=== PATIENT | female | born 1965 | race Caucasian/White ===

== ENCOUNTER → 2017-10-17 12:35 | Outpatient (CLI) | payer BC, SELFPAY ==
--- NOTE | 2017-10-17 12:35 | DT_ITS ---
This patient was seen during an EMR downtime October 16, 2017 - October 23, 2017. This patient may have a combination of paper and electronic documentation or all paper documentation. All documentation is viewable within the e-chart portion of [employer] for each patient visit.
--- NOTE | 2017-10-17 12:50 | BI_ITS ---
MAMMOGRAPHY - BILATERAL SCREENING REASON FOR EXAM: Female, 52 years old. Routine annual screening examination. PERTINENT HISTORY: NO FAM HX - NO PREV SURG'S TECHNIQUE: Digital bilateral breast marcos (3D mammographic acquisition) in the CC and MLO projections. 2-D mediolateral oblique (MLO) and craniocaudad (CC) views of both breasts were obtained. CAD: Full Field Digital Mammography with Computer Added Detection was performed. COMPARISON: 04/01/2013 and December 21, 2011 FINDINGS: Breast Composition: The breasts are heterogeneously dense, which may obscure small masses. There are no dominant masses or suspicious calcifications. No other significant abnormalities are identified. BI/SCREENING MAMM (CAD), BILAT IMPRESSION: Stable bilateral screening mammogram. Yearly follow-up mammogram recommended. (A) ASSESSMENT CATEGORY: BIRADS Category 2: Benign. A letter regarding these results will be sent to the patient by the facility within 30 days. Approximately 10% of breast cancers are not detected by mammography. A normal mammogram should not delay biopsy of a clinically suspicious abnormality. [id number] Electronically Signed: Frank Head MD at 12:58 EDT Tel , Service support ,
== END ==
PROVIDERS: Family Provider Family Medicine; PCP Family Medicine; Visit Provider Family Medicine
DX: Z12.31 Encounter for screening mammogram for malignant neoplasm of breast (principal)
CPT/HCPCS: 77063; 77067

== ENCOUNTER → 2018-10-29 12:29 | Outpatient (CLI) | payer BC, SELFPAY ==
--- NOTE | 2018-10-29 12:33 | BI_ITS ---
MAMMOGRAPHY - BILATERAL SCREENING REASON FOR EXAM: Female, 53 years old. Routine annual screening examination. PERTINENT HISTORY: Non-contributory. TECHNIQUE: Digital bilateral breast myrna (3D mammographic acquisition) in the CC and MLO projections. 2-D mediolateral oblique (MLO) and craniocaudad (CC) views of both breasts were obtained. CAD: Full Field Digital Mammography with Computer Added Detection was performed. COMPARISON: Comparison is made with prior study dated October 17, 2017 and April 01, 2013. FINDINGS: Breast Composition: The breasts are heterogeneously dense, which may obscure small masses. There are no dominant masses or suspicious calcifications. Stable benign-appearing bilateral axillary lymph nodes. No other significant abnormalities are identified. There has been no significant change since the prior study. BI/SCREEN MAMM (CAD) W/MYRNA BILAT IMPRESSION: Stable bilateral screening mammogram. Yearly follow-up mammogram recommended. (A) ASSESSMENT CATEGORY: BIRADS Category 2: Benign. A letter regarding these results will be sent to the patient by the facility within 30 days. Approximately 10% of breast cancers are not detected by mammography. A normal mammogram should not delay biopsy of a clinically suspicious abnormality. [id number] Electronically Signed: Trav Galindo, at 14:42 EDT , Service support ,
== END ==
PROVIDERS: Family Provider Family Medicine; PCP Family Medicine; Referring Provider Family Medicine; Visit Provider Family Medicine
DX: Z12.31 Encounter for screening mammogram for malignant neoplasm of breast (principal)
CPT/HCPCS: 77063; 77067

== ENCOUNTER → 2019-02-04 14:19 | Outpatient (CLI) | payer BC, SELFPAY ==
[2019-02-04 17:33] LABS: Absolute Lymphocyte Count 2.09 X10^3/uL (0.83-4.51); Absolute Neutrophil Count 4.5 X10^3/uL (2.0-7.7); Basophil# 0.09 X10^3/uL; Basophil% 1.1 % (0-1); Eosinophil# 0.41 X10^3/uL; Eosinophils% 5.2 % (0-5); Hematocrit 39.9 % (37-47); Hemoglobin 12.9 g/dL (12.0-15.0); Lymphocyte # 2.09 X10^3/ul (4.0); Lymphocyte % 26.4 % (19-41); Mean Corp Hgb Conc 32.3 g/dL (32-36); Mean Corpuscular Hgb 32.6 pg (27.0-32.0); Mean Corpuscular Volume 100.8 fL (81-99); Mean Platelet Vol. 10.3 fl (6.2-12.0); Monocyte# 0.79 X10^3/uL; NRBC Flagged by Analyzer 0 % (0-5); Neutrophil # 4.51 X10^3/uL (2.7-7.7); Neutrophil % 56.9 % (47-70); Platelet Count 315 K/mm3 (150-450); RBC Distribution Width CV 13.2 % (11.6-14.6); RBC Distribution Width SD 49.1 fl (35.1-43.9); Red Blood Count 3.96 M/mm3 (4.2-5.4); White Blood Count 7.9 K/mm3 (4.4-11.0)
[2019-02-04 17:55] LABS: Anion Gap 7 (5-15); BUN 14 mg/dL (7-18); BUN/Creat Ratio 18.5 RATIO (10-20); Calcium,Total 8.7 mg/dL (8.5-10.1); Chloride 106 mmol/L (98-107); Creatinine, Serum 0.76 mg/dL (0.55-1.02); EST Glomerular Filtration Rate 86 mL/min (>60); Est Glom Filt Rate - Afr Amer 104 mL/min (>60); Glucose 92 mg/dL (74-106); Potassium 3.9 mmol/L (3.5-5.1); Sodium Level 139 mmol/L (136-145); T4 Free Direct 0.72 ng/dL (0.76-1.46)
== END ==
PROVIDERS: Family Provider Family Medicine; PCP Family Medicine; Visit Provider Family Medicine
DX: F41.1 Generalized anxiety disorder (principal); R25.1 Tremor, unspecified
CPT/HCPCS: 36415; 80048; 84439; 84443; 85025

== ENCOUNTER → 2019-03-18 13:43 | Outpatient (CLI) | payer BC, SELFPAY ==
[2019-03-18 16:06] LABS: T4 Free Direct 0.99 ng/dL (0.76-1.46); Thyroid Stim Hormone (TSH) 2.23 uIU/mL (0.358-3.74)
== END ==
PROVIDERS: Family Provider Family Medicine; PCP Family Medicine; Visit Provider Family Medicine
DX: E03.9 Hypothyroidism, unspecified (principal)
CPT/HCPCS: 36415; 84439; 84443

== ENCOUNTER → 2019-06-28 14:03 | Outpatient (CLI) | payer BC, SELFPAY ==
--- NOTE | 2019-06-28 14:10 | RAD_ITS ---
STUDY: X-RAY CHEST REASON FOR EXAM: Female, 54 years old. worsening dyspnea TECHNIQUE: PA and lateral chest COMPARISON: 01/18/2006 FINDINGS: The lungs are clear and expanded. There is no demonstrated pleural abnormality. Normal size heart. Normal mediastinum and leandra. Normal visualized pulmonary arteries. Normal visualized aortic arch and descending thoracic aorta. Normal visualized thoracic spine. Normal visualized ribs, clavicles, and shoulders. There is no demonstrated abnormality of the visualized soft tissue structures of the upper abdomen. RAD/Chest PA and Lateral IMPRESSION: Normal x-ray examination of the chest. Electronically Signed: Misael Broderick, at 0:01 EST Tel , Service support ,
[2019-06-28 15:38] LABS: Absolute Lymphocyte Count 2.11 X10^3/uL (0.83-4.51); Absolute Neutrophil Count 5.5 X10^3/uL (2.0-7.7); Basophil# 0.07 X10^3/uL; Basophil% 0.8 % (0-1); Eosinophil# 0.35 X10^3/uL; Eosinophils% 3.9 % (0-5); Hematocrit 42.7 % (37-47); Lymphocyte # 2.11 X10^3/ul (4.0); Lymphocyte % 23.3 % (19-41); Mean Corp Hgb Conc 32.8 g/dL (32-36); Mean Corpuscular Hgb 32.1 pg (27.0-32.0); Mean Corpuscular Volume 97.9 fL (81-99); Mean Platelet Vol. 10.3 fl (6.2-12.0); Monocyte# 0.96 X10^3/uL; Monocyte% 10.6 % (0-10); NRBC Flagged by Analyzer 0 % (0-5); Neutrophil # 5.53 X10^3/uL (2.7-7.7); Neutrophil % 60.8 % (47-70); Platelet Count 285 K/mm3 (150-450); RBC Distribution Width CV 12.7 % (11.6-14.6); Red Blood Count 4.36 M/mm3 (4.2-5.4); White Blood Count 9.1 K/mm3 (4.4-11.0)
[2019-06-28 16:00] LABS: ALB/GLOB Ratio 1.1 RATIO (0.9-2.4); AST(SGOT) 16 U/L (15-37); Alanine Aminotransfer ALT/SGPT 40 U/L (13-56); Albumin, Serum 3.7 g/dL (3.2-5.0); Alkaline Phosphatase 79 U/L (45-117); Anion Gap 3 (5-15); BUN 14 mg/dL (7-18); BUN/Creat Ratio 18.9 RATIO (10-20); Chloride 106 mmol/L (98-107); Creatinine, Serum 0.74 mg/dL (0.55-1.02); EST Glomerular Filtration Rate 88 mL/min (>60); Est Glom Filt Rate - Afr Amer 106 mL/min (>60); Globulin 3.4 g/dL (2.2-4.2); Glucose 111 mg/dL (74-106); Potassium 3.6 mmol/L (3.5-5.1); Protein, Total 7.1 g/dL (6.4-8.2); Sodium Level 140 mmol/L (136-145); Thyroid Stim Hormone (TSH) 0.62 uIU/mL (0.358-3.74)
[2019-06-28 16:18] LABS: BNP,B-Type NATRIURETIC PEPTIDE 43.1 pg/mL (0-100)
== END ==
PROVIDERS: PCP Family Medicine; Referring Provider Family Medicine; Visit Provider Family Medicine
DX: R06.00 Dyspnea, unspecified (principal); R60.9 Edema, unspecified
CPT/HCPCS: 36415; 71046; 80053; 83880; 84443; 85025

== ENCOUNTER → 2019-07-08 12:54 | Outpatient (CLI) | payer BC, SELFPAY ==
--- NOTE | 2019-07-08 12:59 | ECHOCS_ITS ---
Reason For Study: Worsening Dyspnea Procedure This was a 2D Doppler, Color Flow transthoracic echocardiogram. Contrast injection was performed. Exam performed in department. Left Ventricle Normal LV size. The estimated ejection fraction is 60 %. No evidence for diastolic dysfunction. No regional wall motion abnormalities noted. Right Ventricle Normal RV size. Normal systolic function. Atria Normal left atrium. Normal right atrium. No doppler evidence for ASD. Mitral Valve There is no mitral valve stenosis. Mild (1+) mitral valve insufficiency. Tricuspid Valve There is no tricuspid stenosis. Trivial tricuspid valve insufficiency. Pulmonary artery systolic pressure is 30 mmHg. Aortic Valve Trisinus/trileaflet aortic valve. There is no aortic stenosis. No aortic valve insufficiency. Pulmonic Valve There is no pulmonic valvular stenosis. Trivial pulmonic valve insufficiency. Great Vessels Normal aortic root. Pericardium/Pleural No pericardial effusion. Medication Performed a rapid injection of agitated mix of 9 cc saline and 1cc air to assess for atrial septal defect. Diluted definity 3ml given slow IV push to enhance endocardial definition. MMode/2D Measurements & Calculations LVIDd: 4.0 cm IVSd: 1.2 cm Ao root diam: 2.8 cm LVIDs: 2.7 cm LVPWd: 1.1 cm RVDd: 2.6 cm FS: 32.1 % LAV(MOD-bp): 43.5 ml LA A4 area: 16.8 cm2 LA dimension(2D): 4.2 cm LAV(MOD-bp) Indexed: 22.2 ml/m2 LAV(MOD-sp2): 40.5 ml LAV(MOD-sp4): 45.7 ml RA A4 area: 8.0 cm2 Doppler Measurements & Calculations MV E max omar: 80.2 cm/sec Lat Peak E' Omar: 12.3 cm/sec Med Peak E' Omar: 6.7 cm/sec MV A max omar: 66.6 cm/sec E/E' lat: 6.5 E/E' med: 12.0 MV E/A: 1.2 Ao V2 max: 143.4 cm/sec LV V1 max: 103.5 cm/sec PA V2 max: 95.3 cm/sec Ao max P.2 mmHg LV V1 max P.3 mmHg Ao V2 mean: 101.0 cm/sec Ao mean P.5 mmHg Ao V2 VTI: 30.9 cm PI end-d omar: 79.9 cm/sec TR max omar: 241.6 cm/sec TR max P.4 mmHg Interpretation Summary The estimated ejection fraction is 60 %. No evidence for diastolic dysfunction. Mild (1+) mitral valve insufficiency. Trivial tricuspid valve insufficiency. Pulmonary artery systolic pressure is 30 mmHg. The study was technically difficult. Contrast injection was performed. Ordering Physician: Home Carter Referring Physician: Home Carter Performed By: Tiny Rodriguez, PRIMO, RVT
== END ==
PROVIDERS: PCP Family Medicine; Referring Provider Family Medicine; Visit Provider Family Medicine
DX: R06.00 Dyspnea, unspecified (principal); R60.9 Edema, unspecified
CPT/HCPCS: 93306; Q9957; A4216; C8929

== ENCOUNTER → 2019-12-20 06:54 | Outpatient (CLI) | payer BC, SELFPAY ==
[2019-12-20 07:19] LABS: Hematocrit 43.1 % (37-47); Hemoglobin 14.1 g/dL (12.0-15.0); Mean Corp Hgb Conc 32.7 g/dL (32-36); Mean Corpuscular Hgb 32.8 pg (27.0-32.0); Mean Corpuscular Volume 100.2 fL (81-99); Mean Platelet Vol. 9.7 fl (6.2-12.0); Platelet Count 335 K/mm3 (150-450); RBC Distribution Width CV 12.4 % (11.6-14.6); RBC Distribution Width SD 46.3 fl (35.1-43.9); White Blood Count 7.7 K/mm3 (4.4-11.0)
[2019-12-20 07:46] LABS: Anion Gap 4 (5-15); BUN 12 mg/dL (7-18); BUN/Creat Ratio 15.2 RATIO (10-20); Calcium,Total 8.7 mg/dL (8.5-10.1); Chloride 102 mmol/L (98-107); Creatinine, Serum 0.79 mg/dL (0.55-1.02); EST Glomerular Filtration Rate 81 mL/min (>60); Est Glom Filt Rate - Afr Amer 98 mL/min (>60); Glucose 110 mg/dL (74-106); Potassium 4.3 mmol/L (3.5-5.1); Sodium Level 136 mmol/L (136-145)
== END ==
PROVIDERS: PCP Family Medicine; Referring Provider Physician Assistant; Visit Provider Physician Assistant
DX: Z01.818 Encounter for other preprocedural examination (principal); Z01.810 Encounter for preprocedural cardiovascular examination
CPT/HCPCS: 36415; 80048; 85027

== ENCOUNTER → 2020-05-04 09:32 | Outpatient (CLI) | payer BC, SELFPAY ==
[2020-05-04 12:56] LABS: Vitamin B12 364 pg/mL (211-911)
[2020-05-04 13:09] LABS: Anion Gap 7 (5-15); BUN 9 mg/dL (7-18); BUN/Creat Ratio 13.5 RATIO (10-20); Calcium,Total 8.5 mg/dL (8.5-10.1); Chloride 102 mmol/L (98-107); Cholesterol 192 mg/dL (200); Creatinine, Serum 0.67 mg/dL (0.55-1.02); EST Glomerular Filtration Rate 98 mL/min (>60); Est Glom Filt Rate - Afr Amer 119 mL/min (>60); Glucose 101 mg/dL (74-106); High Density Lipoprotein 47 mg/dL; Potassium 4.1 mmol/L (3.5-5.1); Sodium Level 136 mmol/L (136-145); T4 Free Direct 1.11 ng/dL (0.76-1.46); Triglycerides 189 mg/dL; Very Low Density Lipoprotein 38 mg/dL (5-40)
[2020-05-04 16:21] LABS: Thyroid Stim Hormone (TSH) 2.58 uIU/mL (0.358-3.74)
== END ==
PROVIDERS: PCP Family Medicine; Visit Provider Family Medicine
DX: E03.9 Hypothyroidism, unspecified (principal); R73.01 Impaired fasting glucose; G25.81 Restless legs syndrome; G62.9 Polyneuropathy, unspecified
CPT/HCPCS: 36415; 80048; 80061; 82607; 84439; 84443

== ENCOUNTER → 2020-05-26 17:00 | Outpatient (CLI) | payer BC, SELFPAY ==
--- NOTE | 2020-05-26 16:41 | BI_ITS ---
MAMMOGRAPHY - BILATERAL SCREENING REASON FOR EXAM: Female, 55 years old. Routine annual screening examination. PERTINENT HISTORY: Non-contributory. TECHNIQUE: Digital bilateral breast myrna (3D mammographic acquisition) in the CC and MLO projections. 2-D mediolateral oblique (MLO) and craniocaudad (CC) views of both breasts were obtained. CAD: Full Field Digital Mammography with Computer Added Detection was performed. COMPARISON: Comparison is made with prior study dated 10/29/2018 and 10/17/2017. FINDINGS: Breast Composition: The breasts are heterogeneously dense, which may obscure small masses. There are no dominant masses or suspicious calcifications. Stable benign-appearing bilateral axillary lymph nodes. No other significant abnormalities are identified. There has been no significant change since the prior study. BI/SCREEN MAMM (CAD) W/MYRNA BILAT IMPRESSION: Stable bilateral screening mammogram. Yearly follow-up mammogram recommended. (A) ASSESSMENT CATEGORY: BIRADS Category 2: Benign. A letter regarding these results will be sent to the patient by the facility within 30 days. Approximately 10% of breast cancers are not detected by mammography. A normal mammogram should not delay biopsy of a clinically suspicious abnormality. [id number] Electronically Signed: Trav Galindo, at 8:40 EST , Service support ,
== END ==
PROVIDERS: PCP Family Medicine; Referring Provider Family Medicine; Visit Provider Family Medicine
DX: Z12.31 Encounter for screening mammogram for malignant neoplasm of breast (principal)
CPT/HCPCS: 77063; 77067

== ENCOUNTER → 2020-07-27 08:51 | Outpatient (CLI) | payer BC, SELFPAY ==
[2020-07-27 12:38] LABS: Absolute Neutrophil Count 4.4 X10^3/uL (2.0-7.7); Basophil# 0.06 X10^3/uL; Basophil% 0.8 % (0-1); Eosinophil# 0.18 X10^3/uL; Eosinophils% 2.5 % (0-5); Hematocrit 43.1 % (37-47); Hemoglobin 13.5 g/dL (12.0-15.0); Lymphocyte % 26.4 % (19-41); Mean Corp Hgb Conc 31.3 g/dL (32-36); Mean Corpuscular Hgb 31.8 pg (27.0-32.0); Mean Corpuscular Volume 101.4 fL (81-99); Mean Platelet Vol. 10.1 fl (6.2-12.0); Monocyte# 0.61 X10^3/uL; Monocyte% 8.5 % (0-10); NRBC Flagged by Analyzer 0 % (0-5); Platelet Count 367 K/mm3 (150-450); RBC Distribution Width CV 12.7 % (11.6-14.6); RBC Distribution Width SD 47.9 fl (35.1-43.9); Red Blood Count 4.25 M/mm3 (4.2-5.4); White Blood Count 7.2 K/mm3 (4.4-11.0)
[2020-07-27 13:06] LABS: ALB/GLOB Ratio 1.1 RATIO (0.9-2.4); AST(SGOT) 16 U/L (15-37); Alanine Aminotransfer ALT/SGPT 38 U/L (13-56); Albumin, Serum 3.7 g/dL (3.2-5.0); Alkaline Phosphatase 69 U/L (45-117); Anion Gap 7 (5-15); BUN 9 mg/dL (7-18); BUN/Creat Ratio 12.5 RATIO (10-20); Calcium,Total 8.6 mg/dL (8.5-10.1); Chloride 102 mmol/L (98-107); Creatinine, Serum 0.72 mg/dL (0.55-1.02); EST Glomerular Filtration Rate 90 mL/min (>60); Est Glom Filt Rate - Afr Amer 109 mL/min (>60); Globulin 3.3 g/dL (2.2-4.2); Glucose 100 mg/dL (74-106); Potassium 4.2 mmol/L (3.5-5.1); Sodium Level 135 mmol/L (136-145); T4 Free Direct 1.06 ng/dL (0.76-1.46); Thyroid Stim Hormone (TSH) 1.94 uIU/mL (0.358-3.74)
== END ==
PROVIDERS: PCP Family Medicine; Visit Provider Family Medicine
DX: E03.9 Hypothyroidism, unspecified (principal); J45.909 Unspecified asthma, uncomplicated; G25.0 Essential tremor
CPT/HCPCS: 36415; 80053; 84439; 84443; 85025

== ENCOUNTER → 2020-08-26 12:01 | Outpatient (CLI) | payer BC, SELFPAY ==
[2020-08-26 15:49] LABS: Thyroid Stim Hormone (TSH) 1.94 uIU/mL (0.358-3.74)
== END ==
PROVIDERS: PCP Family Medicine; Referring Provider Family Medicine; Visit Provider Family Medicine
DX: E03.9 Hypothyroidism, unspecified (principal)
CPT/HCPCS: 36415; 84443

== ENCOUNTER 2021-07-21 07:14 | Outpatient (CLI) | payer OTHER, SELFPAY ==
--- NOTE | 2021-07-21 07:20 | BI_ITS ---
MAMMOGRAPHY - BILATERAL SCREENING REASON FOR EXAM: Female, 56 years old. Routine annual screening examination. PERTINENT HISTORY: Non-contributory. TECHNIQUE: Digital bilateral breast myrna (3D mammographic acquisition) in the CC and MLO projections. 2-D mediolateral oblique (MLO) and craniocaudad (CC) views of both breasts were obtained. CAD: Full Field Digital Mammography with Computer Added Detection was performed. COMPARISON: Comparison is made with prior study dated 05/26/2020 and 10/29/2018. FINDINGS: Breast Composition: The breasts are heterogeneously dense, which may obscure small masses. There are no dominant masses or suspicious calcifications. Stable benign-appearing bilateral axillary lymph nodes. No other significant abnormalities are identified. There has been no significant change since the prior study. BI/SCRN MAMM (CAD)W/MYRNA BILAT IMPRESSION: Stable bilateral screening mammogram. Yearly follow-up mammogram recommended. (A) ASSESSMENT CATEGORY: BIRADS Category 2: Benign. A letter regarding these results will be sent to the patient by the facility within 30 days. Approximately 10% of breast cancers are not detected by mammography. A normal mammogram should not delay biopsy of a clinically suspicious abnormality. [id number] Electronically Signed: Trav Galindo MD at 8:38 EST ,
== END 2021-07-21 23:59 | disposition home or self-care (01) ==
LOC: OPBI 07:17
PROVIDERS: PCP Family Medicine; Visit Provider Family Medicine
DX: Z12.31 Encounter for screening mammogram for malignant neoplasm of breast (principal)
CPT/HCPCS: 77063; 77067

== ENCOUNTER → 2022-01-13 | Outpatient (CLI) | payer OTHER, SELFPAY ==
[2022-01-13 07:20] LABS: Hematocrit 45.3 % (37-47); Hemoglobin 15.3 g/dL (12.0-15.0); Mean Corp Hgb Conc 33.8 g/dL (32-36); Mean Corpuscular Hgb 34.1 pg (27.0-32.0); Mean Corpuscular Volume 100.9 fL (81-99); Mean Platelet Vol. 9.8 fl (6.2-12.0); Platelet Count 284 K/mm3 (150-450); RBC Distribution Width SD 48.3 fl (35.1-43.9); Red Blood Count 4.49 M/mm3 (4.2-5.4); White Blood Count 7.2 K/mm3 (4.4-11.0)
[2022-01-13 07:57] LABS: ALB/GLOB Ratio 1.2 RATIO (0.9-2.4); AST(SGOT) 17 U/L (15-37); Alanine Aminotransfer ALT/SGPT 35 U/L (13-56); Albumin, Serum 3.8 g/dL (3.2-5.0); Alkaline Phosphatase 81 U/L (45-117); Anion Gap 4 (5-15); BUN 13 mg/dL (7-18); BUN/Creat Ratio 16.9 RATIO (10-20); Calcium,Total 8.9 mg/dL (8.5-10.1); Chloride 104 mmol/L (98-107); Creatinine, Serum 0.77 mg/dL (0.55-1.02); EST Glomerular Filtration Rate 83 mL/min (>60); Est Glom Filt Rate - Afr Amer 100 mL/min (>60); Globulin 3.3 g/dL (2.2-4.2); Glucose 105 mg/dL (74-106); Potassium 4.2 mmol/L (3.5-5.1); Protein, Total 7.1 g/dL (6.4-8.2); Sodium Level 138 mmol/L (136-145)
== END | disposition home or self-care (01) ==
PROVIDERS: PCP Family Medicine; Referring Provider Physician Assistant; Visit Provider Physician Assistant
DX: G25.0 Essential tremor (principal)
CPT/HCPCS: 36415; 80053; 85027

== ENCOUNTER → 2022-03-23 | Outpatient (CLI) | payer OTHER, SELFPAY | END | disposition home or self-care (01) | LOC: LABSPEC 08:54 | PROVIDERS: PCP Family Medicine; Visit Provider Family Medicine | DX: N39.0 Urinary tract infection, site not specified (principal) | CPT/HCPCS: 87086; 87088; 87186 ==

== ENCOUNTER → 2022-06-16 | Outpatient (CLI) | payer OTHER, SELFPAY ==
[2022-06-16 08:22] LABS: Absolute Lymphocyte Count 1.81 X10^3/uL (0.83-4.51); Absolute Neutrophil Count 4.8 X10^3/uL (2.0-7.7); Basophil# 0.08 X10^3/uL; Eosinophil# 0.24 X10^3/uL; Eosinophils% 3.1 % (0-5); Hematocrit 45.8 % (37-47); Hemoglobin 14.8 g/dL (12.0-15.0); Lymphocyte # 1.81 X10^3/ul (0.83-4.51); Lymphocyte % 23.7 % (19-41); Mean Corp Hgb Conc 32.3 g/dL (32-36); Mean Corpuscular Hgb 33.1 pg (27.0-32.0); Mean Corpuscular Volume 102.5 fL (81-99); Mean Platelet Vol. 10.5 fl (6.2-12.0); Monocyte% 9.2 % (0-10); NRBC Flagged by Analyzer 0 % (0-5); Neutrophil # 4.78 X10^3/uL (2.7-7.7); Neutrophil % 62.7 % (47-70); Platelet Count 287 K/mm3 (150-450); RBC Distribution Width CV 12.6 % (11.6-14.6); RBC Distribution Width SD 47.9 fl (35.1-43.9); Red Blood Count 4.47 M/mm3 (4.2-5.4); White Blood Count 7.6 K/mm3 (4.4-11.0)
[2022-06-16 09:04] LABS: ALB/GLOB Ratio 1.2 RATIO (0.9-2.4); AST(SGOT) 16 U/L (15-37); Alanine Aminotransfer ALT/SGPT 43 U/L (13-56); Albumin, Serum 3.7 g/dL (3.2-5.0); Alkaline Phosphatase 84 U/L (45-117); Anion Gap 5 (5-15); BUN 10 mg/dL (7-18); BUN/Creat Ratio 16.4 RATIO (10-20); Calcium,Total 8.5 mg/dL (8.5-10.1); Chloride 105 mmol/L (98-107); Cholesterol 240 mg/dL (200); Creatinine, Serum 0.61 mg/dL (0.55-1.02); EST Glomerular Filtration Rate 108 mL/min (>60); Est Glom Filt Rate - Afr Amer 131 mL/min (>60); Globulin 3.2 g/dL (2.2-4.2); Glucose 106 mg/dL (74-106); High Density Lipoprotein 60 mg/dL; Potassium 4.1 mmol/L (3.5-5.1); Protein, Total 6.9 g/dL (6.4-8.2); Sodium Level 139 mmol/L (136-145); Thyroid Stim Hormone (TSH) 1.99 uIU/mL (0.358-3.74); Triglycerides 137 mg/dL; Very Low Density Lipoprotein 27 mg/dL (5-40)
[2022-06-16 10:26] LABS: Hemoglobin A1c 5.3 % (3.8-5.6)
== END | disposition home or self-care (01) ==
LOC: LAB 07:09
PROVIDERS: PCP Family Medicine; Referring Provider Family Medicine; Visit Provider Family Medicine
DX: E03.9 Hypothyroidism, unspecified (principal); E66.9 Obesity, unspecified; R73.01 Impaired fasting glucose; G25.0 Essential tremor
CPT/HCPCS: 36415; 80053; 80061; 83036; 84443; 85025

== ENCOUNTER → 2022-07-22 | Outpatient (CLI) | payer OTHER, SELFPAY ==
--- NOTE | 2022-07-22 07:08 | BI_ITS ---
MAMMOGRAPHY - BILATERAL SCREENING REASON FOR EXAM: Female, 57 years old. Routine annual screening examination. PERTINENT HISTORY: Non-contributory. TECHNIQUE: Digital bilateral breast myrna (3D mammographic acquisition) in the CC and MLO projections. 2-D mediolateral oblique (MLO) and craniocaudad (CC) views of both breasts were obtained. CAD: Full Field Digital Mammography with Computer Added Detection was performed. COMPARISON: Comparison is made with prior study July 21, 2021 and May 26, 2020. FINDINGS: Breast Composition: The breasts are heterogeneously dense, which may obscure small masses. There are no dominant masses or suspicious calcifications. Stable benign-appearing bilateral axillary lymph nodes. No other significant abnormalities are identified. There has been no significant change since the prior study. BI/SCRN MAMM (CAD)W/MYRNA BILAT IMPRESSION: Stable bilateral screening mammogram. Yearly follow-up mammogram recommended. (A) ASSESSMENT CATEGORY: BIRADS Category 2: Benign. A letter regarding these results will be sent to the patient by the facility within 30 days. Approximately 10% of breast cancers are not detected by mammography. A normal mammogram should not delay biopsy of a clinically suspicious abnormality. [id number] Electronically Signed: Trav Galindo MD at 8:24 EST ,
--- NOTE | 2022-07-22 07:29 | CT_ITS ---
STUDY: LOW DOSE CT LUNG CANCER SCREENING REASON FOR EXAM: Female, 57 years old. LUNG CANCER SCREEN. 1PPD X 40 YEARS . COPD AND ASTHMA RADIATION DOSAGE (If Supplied By Facility): CTDIvol = ( 4.02 ) mGy, DLP = ( 141.45 ) mGycm TECHNIQUE: No contrast was administered. Low dose technique was utilized (average mAS-38 and kVp 120). 1.25 mm axial source images with a slice interval of 1.25-mm were reconstructed in lung windows. 2.5 mm axial source images with a slice interval of 2.5-mm were reconstructed in lung windows. 5.0 mm axial source images with a slice interval of 5.0-mm were reconstructed in soft tissue windows. COMPARISON: None. NODULES: No suspicious findings are seen. Emphysema: No significant emphysema. Endobronchial lesion: Unremarkable Aorta: Unremarkable CORONARY ARTERIES: Coronary artery calcification is not seen. Heart: Unremarkable Pulmonary artery: Unremarkable Mediastinal nodes: Small mediastinal lymph nodes. Other chest and abdominal findings: CT/Low Dose CT Lung Screening IMPRESSION: Lung-RADS category 2 - Continue annual screening with LDCT in 12 months. IMPORTANT NOTES FOR USE: ACR Lung-RADS Version 1.1 Assessment Categories Release Date: 2018 Category: Coded 0-4 bases on nodule(s) with highest degree of suspicion. Negative screen is defined as categories 1 and 2; a positive screen is defined as categories 3 and 4. Category 3 and 4A nodules that are unchanged on interval CT should be coded as category 2, and individuals returned to screening in 12 months. Category 4X: Category 3 or 4 nodules with additional imaging findings that increase the suspicion of lung cancer, such as spiculation, GGN that doubles in size in 1 year, enlarged lymph notes, etc. Category Modifiers: S (significant finding unrelated to lung cancer) Electronically Signed: Trav Galindo MD at 14:23 EST ,
== END | disposition home or self-care (01) ==
LOC: OPBI 07:06
PROVIDERS: PCP Family Medicine; Referring Provider Family Medicine; Visit Provider Family Medicine
DX: Z12.31 Encounter for screening mammogram for malignant neoplasm of breast (principal); F17.200 Nicotine dependence, unspecified, uncomplicated
CPT/HCPCS: 71271; 77063; 77067

== ENCOUNTER 2022-12-08 08:02 | Emergency (ER) | payer OTHER, SELFPAY ==
[2022-12-08 08:06] VITALS: BP 156/76; PULSE 71; RESP 17; TEMP 35.2; O2SAT 99; BMI 37.7
--- NOTE | 2022-12-08 08:25 | EKG12_ITS ---
Test Reason : Blood Pressure : / mmHG Vent. Rate : 076 BPM Atrial Rate : 076 BPM P-R Int : 164 ms QRS Dur : 074 ms QT Int : 374 ms P-R-T Axes : 059 000 036 degrees QTc Int : 420 ms Normal sinus rhythm Normal ECG Confirmed by ZEYNEP BURGESS, RAGHAVENDRA ([id number]), editor city JELANI HERNANDES ([id number]) on 12/09/2022 9:14:31 AM Referred By: SHAVON Confirmed By:RAGHAVENDRA ADHIKARI MD
--- NOTE | 2022-12-08 08:27 | ED.VIS.CHEST ---
HPI History of Present Illness Chief Complaint: Chest Pain Informant: patient Narrative Narrative: Patient is a 57-year-old female with history of hypothyroid, restless leg syndrome, essential tremor, asthma, anxiety and low blood pressure presenting with chest pain. Patient states that she woke up at 4 AM and felt an electrical shocking sensation in the chest. She points to her left anterior chest wall as the area. She notes it did not radiate. It lasted for most 5 seconds. She states it was quite painful. She did go back to sleep and when she woke up again she had a milder discomfort in her left chest. She got a bed around 545 and states it was happening again. She states the episode only last for a second or 2 at a time. She was get ready for work and going into work she knows that she is also nauseous which is unusual for her and has some discomfort under her left armpit. She spoke to a colleague who recommend she come to the ER for further evaluation. Patient denies any significant swelling of her legs, history of DVT or PE. [place] any recent travel. Denies any shortness of breath. Nothing seems to make it worse or better. Currently does not have any symptoms. She denies any known history of any heart problems. States her sister gets episodes of chest pain has been told she has plaque but patient does not report any other cardiac history in the family. [facility] Home Medications ketoconazole 2 % topical cream applic topical 12/08/22 [History Last Taken Unknown] levothyroxine 112 mcg tablet mcg 12/08/22 [History Last Taken Unknown] propranolol 160 mg capsule,24 hr,extended release mg PO 12/08/22 [History Last Taken Unknown] temazepam 15 mg capsule mg 12/08/22 [History Last Taken Unknown] Allergy/AdvReac Type Severity Reaction Status Date / Time Penicillins Allergy Itching Verified 12/08/22 08:05 psyllium [From Metamucil] Allergy swelling Verified 12/08/22 08:05 acetaminophen [From Midrin] AdvReac Mild headache Verified 12/08/22 08:05 dichloralphenazone AdvReac Mild headache Verified 12/08/22 08:05 [From Midrin] isometheptene [From Midrin] AdvReac Mild headache Verified 12/08/22 08:05 metronidazole [From Flagyl] AdvReac Vomiting Verified 12/08/22 08:05 arithromicin AdvReac Nausea Uncoded 12/08/22 08:05 Social History Smoking Status: Current every day smoker tobacco type: cigarettes ROS ROS ED Constitutional Constitutional ED: Denies chills or fever(s) Cardiovascular Cardiovascular: Reports as per HPI and chest pain; Denies palpitations or racing heartbeat Respiratory/Chest Respiratory/Chest: Denies cough, dyspnea or dyspnea on exertion Gastrointestinal Gastrointestinal: Reports nausea; Denies abdominal pain or vomiting Genitourinary Genitourinary ED: Denies dysuria, hematuria or urinary frequency Musculoskeletal Musculoskeletal: Denies arthralgias, back pain, myalgias or neck pain Integumentary Denies rash Neurologic Neurologic: Denies headache(s), paresthesias or weakness Psychiatric Psychiatric: Denies anxiety EXAM Physical Exam Const Vital Signs: 12/08/22 08:06 12/08/22 08:09 12/08/22 08:25 Temperature 95.4 F L Temperature Source Temporal Pulse Rate 71 Respiratory Rate 17 Respiratory Effort Normal Non-Labored Blood Pressure 156/76 H Blood Pressure Mean 102 Pulse Ox 99 Oxygen Delivery Method Room Air Room Air 12/08/22 09:02 12/08/22 10:02 12/08/22 11:48 Temperature Temperature Source Pulse Rate 62 82 Respiratory Rate 14 14 Respiratory Effort Blood Pressure 122/69 H 125/75 H Blood Pressure Mean 86 Pulse Ox 95 99 Oxygen Delivery Method Room Air Positive well nourished and well developed General Appearance ED: well developed and NAD HEENT Reports moist mucous membranes normocephalic and atraumatic Eyes PERRL Neck supple and no JVD Chest Wall inspection of chest normal and palpation of chest normal Resp normal respiratory effort and clear to auscultation bilaterally Cardio regular rate, regular rhythm and no murmurs Peripheral Pulses: pulses 2+ throughout GI normal to inspection, nondistended, normoactive bowel sounds Extremity normal to inspection General Extremety ED: Negative for edema or pulses abnormal General Extremity: Negative for edema or pulses abnormal Neuro oriented x3 Sensorium / Orientation: awake Motor Exam: Negative for general weakness Psych mental status grossly normal Skin no rashes or lesions noted and no wounds Heart Score History: Slightly/Non-Suspicious ECG: Normal Age: >45 - <65 years Risk Factors: 1 or 2 Risk Factors Troponin: </= Normal Limit Score: 2 MDM MDM MDM Narrative Medical decision making narrative: Patient is evaluated for chest pain. Chest pain sounds atypical for ACS as it is an intermittent electric like sensation however patient is mildly hypertensive, greater than 50 and has a BMI of 37 so we will obtain cardiac work-up. I have a very low suspicion for pulmonary emboli based on the HPI. Patient has a largely negative cardiac work-up. High since he troponin negative x2. EKG is nonischemic. CBC and CMP are largely normal. No significant Sena abnormality. The exact cause of this electrical station of her chest is not clear. It could be muscle skeletal in nature she could have a some type of nerve impingement in her thoracic spine. Counseled that at this time the exact cause of symptoms not clear and she should be cleared to follow-up with her primary care doctor. I would recommend further outpatient cardiac testing. Patient agreeable with plan of care. Given return precautions. Lab Data Attestation: I reviewed the patient's lab results. Labs: Laboratory Results - last 24 hr 12/08/22 12/08/22 08:05 10:37 WBC 8.3 RBC 4.63 Hgb 15.4 H Hct 45.8 MCV 98.9 MCH 33.3 H MCHC 33.6 RDW Std Deviation 45.7 H RDW Coeff of Alayna 12.5 Plt Count 284 MPV 10.4 Immature Gran % (Auto) 0.400 Neut % (Auto) 60.1 Lymph % (Auto) 26.5 Toole % (Auto) 9.8 Eos % (Auto) 2.4 Baso % (Auto) 0.8 Absolute Neuts (auto) 5.0 Absolute Lymphs (auto) 2.20 Nucleated RBC % 0 Sodium 138 Potassium 4.1 Chloride 103 Carbon Dioxide 30.0 Anion Gap 5 BUN 14 Creatinine 0.72 Estim Creat Clear Calc 69.82 Est GFR (MDRD) Af Amer 107 Est GFR (MDRD) Non-Af 89 BUN/Creatinine Ratio 19.3 Glucose 112 H Calcium 9.1 Magnesium 2.4 Troponin I High Sens < 3 L < 3 L Radiography Chest X-Ray - ED: 2 View Diagnostic Testing: Clinical Impression(s) from Imaging Studies Chest X-Ray 12/08/22 08:40 IMPRESSION: Normal x-ray examination of the chest. Electronically Signed: Trav Galindo MD at 9:07 EDT , Rhythm Strip Rhythm Strip: Sinus Rhythm Rate: 76 Ectopy: None EKG Initial EKG: Attestation: I personally reviewed and interpreted this EKG as follows: Interpretation: Sinus Rhythm Comments: Normal sinus rhythm rate of 76 bpm Normal axis Normal intervals Normal ST segments Prior EKG tracings: not available for review Prior: No Prior Discharge Plan Triage Chief Complaint: Chest Pain ED Provider: Angelica Trivedi Dx/Rx/DC Orders Clinical Impression: Atypical chest pain Instructions: ED Chest Pain, Uncertain Cause Prescriptions: No Action propranolol 160 mg capsule,extended release 24 hr PO temazepam 15 mg capsule ketoconazole 2 % cream TOPICAL Patient Comments: APPLY TO AFFECTED AREAS OF TRUNK AND GROIN TWICE DAILY NEEDED levothyroxine 112 mcg tablet Stand Alone Forms: ED Work / School Excuse Primary Care Provider: Taryn Kim Referrals: Taryn Kim MD [Primary Care Provider] - Activity Restrictions/Additional Instructions: The exact cause of the sensation in her chest is not clear however at this time there does not appear to be any acute cardiac process going on. I feel that you are safe to follow-up outpatient with your primary care doctor. Please return to the ER if you have progression or worsening of your symptoms. Disposition Disposition: Home, Self Care Discharge Date/Time: 12/08/22 11:49
[2022-12-08] MEDS: Aspirin 81 MG TAB.CHEW 324 MG PO (08:33)
--- NOTE | 2022-12-08 08:40 | RAD_ITS ---
STUDY: X-RAY CHEST REASON FOR EXAM: Female, 57 years old. Chest pain TECHNIQUE: PA and lateral views of the chest. COMPARISON: Comparison is made with prior study June 28, 2019. FINDINGS: EKG electrodes are seen. The lungs are clear and expanded. Scattered calcified granulomas. There is no demonstrated pleural abnormality. Normal size heart. Normal mediastinum and leandra. Normal visualized pulmonary arteries. Normal visualized aortic arch and descending thoracic aorta. Normal visualized thoracic spine. Normal visualized ribs, clavicles, and shoulders. There is no demonstrated abnormality of the visualized soft tissue structures of the upper abdomen. RAD/Chest PA and Lateral IMPRESSION: Normal x-ray examination of the chest. Electronically Signed: Trav Galindo MD at 9:07 EDT ,
[2022-12-08 08:43] LABS: Basophil# 0.07 X10^3/uL; Basophil% 0.8 % (0-1); Eosinophils% 2.4 % (0-5); Hematocrit 45.8 % (37-47); Hemoglobin 15.4 g/dL (12.0-15.0); Lymphocyte % 26.5 % (19-41); Mean Corp Hgb Conc 33.6 g/dL (32-36); Mean Corpuscular Hgb 33.3 pg (27.0-32.0); Mean Corpuscular Volume 98.9 fL (81-99); Mean Platelet Vol. 10.4 fl (6.2-12.0); Monocyte# 0.81 X10^3/uL; Monocyte% 9.8 % (0-10); NRBC Flagged by Analyzer 0 % (0-5); Neutrophil # 4.99 X10^3/uL (2.7-7.7); Neutrophil % 60.1 % (47-70); Platelet Count 284 K/mm3 (150-450); RBC Distribution Width CV 12.5 % (11.6-14.6); RBC Distribution Width SD 45.7 fl (35.1-43.9); Red Blood Count 4.63 M/mm3 (4.2-5.4); White Blood Count 8.3 K/mm3 (4.4-11.0)
[2022-12-08 08:54] LABS: Anion Gap 5 (5-15); BUN 14 mg/dL (7-18); BUN/Creat Ratio 19.3 RATIO (10-20); Calcium,Total 9.1 mg/dL (8.5-10.1); Chloride 103 mmol/L (98-107); Creatinine, Serum 0.72 mg/dL (0.55-1.02); EST Glomerular Filtration Rate 89 mL/min (>60); Est Glom Filt Rate - Afr Amer 107 mL/min (>60); Estimated Creatinine Clearance 69.82 ml/min; Glucose 112 mg/dL (74-106); Magnesium 2.4 mg/dL (1.6-2.6); Potassium 4.1 mmol/L (3.5-5.1); Sodium Level 138 mmol/L (136-145); Troponin-I HS (w/2H Reflex) < 3 pg/mL (3.0-54.0)
[2022-12-08 09:02] VITALS: RESP 14
[2022-12-08 10:02] VITALS: BP 122/69; PULSE 62; RESP 14; O2SAT 95
[2022-12-08 10:30] LABS: Reflex Troponin-HS? (from REC) Y
[2022-12-08 11:18] LABS: Troponin-I HS < 3 pg/mL (3.0-54.0)
[2022-12-08 11:48] VITALS: BP 125/75; PULSE 82; O2SAT 99
== END 2022-12-08 11:49 | disposition home or self-care (01) ==
PROVIDERS: Emergency Provider Emergency Medicine; PCP Family Medicine; Visit Provider Emergency Medicine
DX: R07.89 Other chest pain (principal); E03.9 Hypothyroidism, unspecified; G25.81 Restless legs syndrome; J45.909 Unspecified asthma, uncomplicated; F41.9 Anxiety disorder, unspecified; F17.210 Nicotine dependence, cigarettes, uncomplicated; Z79.890 Hormone replacement therapy; Z79.899 Other long term (current) drug therapy
CPT/HCPCS: 71046; 80048; 83735; 84484; 85025; 93005; 99285; A4216

== ENCOUNTER 2023-06-08 13:38 | Emergency (ER) | payer OTHER, SELFPAY ==
[2023-06-08] VITALS (7 sets, daily range): BP systolic 118–144; BP diastolic 69–86; PULSE 69–86; RESP 13–18; TEMP 36.4; O2SAT 94–98; BMI 38.7
[2023-06-08] MEDS: Ipratropium/Albuterol Sulfate 3 ML AMPUL.NEB INHALATION (14:21)
--- NOTE | 2023-06-08 14:30 | RAD_ITS ---
STUDY: X-RAY CHEST REASON FOR EXAM: Female, 58 years old. Sob TECHNIQUE: Single AP portable view of the chest. COMPARISON: Comparison is made with prior study dated December 08, 2022. FINDINGS: EKG electrodes are seen. The lungs are clear and expanded. There is no demonstrated pleural abnormality. Normal size heart. Normal mediastinum and leandra. Normal visualized pulmonary arteries. Normal visualized aortic arch and descending thoracic aorta. Normal visualized thoracic spine. Normal visualized ribs, clavicles, and shoulders. There is no demonstrated abnormality of the visualized soft tissue structures of the upper abdomen. RAD/Chest 1 View (Portable) IMPRESSION: Normal x-ray examination of the chest. Electronically Signed: Trav Galindo MD at 14:48 EST ,
[2023-06-08 14:36] LABS: Absolute Lymphocyte Count 1.04 X10^3/uL (0.83-4.51); Basophil# 0.04 X10^3/uL; Basophil% 0.4 % (0-1); Eosinophil# 0.48 X10^3/uL; Eosinophils% 5.4 % (0-5); Hematocrit 43.9 % (37-47); Hemoglobin 14.6 g/dL (12.0-15.0); Lymphocyte # 1.04 X10^3/ul (0.83-4.51); Lymphocyte % 11.7 % (19-41); Mean Corp Hgb Conc 33.3 g/dL (32-36); Mean Corpuscular Hgb 32.7 pg (27.0-32.0); Mean Corpuscular Volume 98.4 fL (81-99); Mean Platelet Vol. 9.9 fl (6.2-12.0); Monocyte# 0.29 X10^3/uL; Monocyte% 3.3 % (0-10); NRBC Flagged by Analyzer 0 % (0-5); Neutrophil # 6.98 X10^3/uL (2.7-7.7); Neutrophil % 78.5 % (47-70); Platelet Count 290 K/mm3 (150-450); RBC Distribution Width CV 12.6 % (11.6-14.6); RBC Distribution Width SD 45.6 fl (35.1-43.9); Red Blood Count 4.46 M/mm3 (4.2-5.4); White Blood Count 8.9 K/mm3 (4.4-11.0)
--- NOTE | 2023-06-08 14:40 | EDS_ITS ---
HPI History of Present Illness Chief Complaint: Asthma Informant: patient Onset/Context/Timing Onset: Days Narrative Narrative: Patient present secondary to an asthma attack. She states that she has been sick off and on since . The week after she was diagnosed with COVID. She was seen by nurse practitioner at her PCPs office yesterday who prescribed her prednisone. She states she was told at the time that her lungs sounded clear. 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 She used 2 puffs of her albuterol inhaler this morning, 1 puff around 11 AM, and then 1 puff around 1:30 when she had an asthma attack. Patient does report some slight chest heaviness. She has not had recent fever or chills. [facility] Medical History (Updated 06/08/23 @ 15:[address] Francisca Yanez MD) Asthma Hypothyroidism Home Medications ketoconazole 2 % topical cream applic topical 12/08/22 [History Last Taken Unknown] levothyroxine 112 mcg tablet mcg 12/08/22 [History Last Taken Unknown] propranolol 160 mg capsule,24 hr,extended release mg PO 12/08/22 [History Last Taken Unknown] temazepam 15 mg capsule mg 12/08/22 [History Last Taken Unknown] Allergy/AdvReac Type Severity Reaction Status Date / Time azithromycin Allergy Mild Nausea Verified 06/08/23 13:46 Penicillins Allergy Itching Verified 06/08/23 13:46 psyllium [From Metamucil] Allergy swelling Verified 06/08/23 13:46 acetaminophen [From Midrin] AdvReac Mild headache Verified 06/08/23 13:46 dichloralphenazone AdvReac Mild headache Verified 06/08/23 13:46 [From Midrin] isometheptene [From Midrin] AdvReac Mild headache Verified 06/08/23 13:46 metronidazole [From Flagyl] AdvReac Vomiting Verified 06/08/23 13:46 Social History Smoking Status: Current every day smoker tobacco type: cigarettes ROS ROS ED Constitutional Constitutional ED: Denies chills or fever(s) Eyes Eyes: Denies discharge from eye(s) ENT ENT ED: Denies discharge from eye(s), rhinorrhea or sore throat Cardiovascular Cardiovascular: Reports chest pain; Denies palpitations Respiratory/Chest Respiratory/Chest: Reports dyspnea; Denies cough Gastrointestinal Gastrointestinal: Denies abdominal pain, nausea or vomiting Genitourinary Genitourinary ED: Denies dysuria Musculoskeletal Musculoskeletal: Denies back pain or extremity pain Integumentary Denies Abrasions or rash Neurologic Neurologic: Denies headache(s) or weakness Psychiatric Psychiatric: Denies anxiety or depression Allergic/Immunologic Allergic/Immunologic ED: Denies lip swelling or urticaria EXAM Physical Exam Const Vital Signs: 06/08/23 13:42 06/08/23 13:46 06/08/23 13:53 Temperature 97.5 F L Temperature Source Temporal Pulse Rate 86 84 Respiratory Rate 17 15 Respiratory Effort Short of Breath Respiratory Pattern Blood Pressure 144/86 H 135/76 H Blood Pressure Mean 105 95 Pulse Ox 96 97 Oxygen Delivery Method Room Air Room Air Room Air 06/08/23 14:24 06/08/23 14:59 06/08/23 15:00 Temperature Temperature Source Pulse Rate 75 69 72 Respiratory Rate 18 13 14 Respiratory Effort Respiratory Pattern Normal Blood Pressure 122/71 H 124/73 H Blood Pressure Mean 88 90 Pulse Ox 95 94 Oxygen Delivery Method Room Air Room Air Positive well nourished and well developed General Appearance ED: well developed HEENT Reports moist mucous membranes Eyes EOMs intact bilaterally Resp Resp Narrative: Slightly diminished air movement bilaterally. No wheezing appreciated at this time. Cardio regular rate and regular rhythm GI non-tender Palpation: soft Extremity normal to inspection Neuro oriented x3 and no sensory deficits noted Motor Exam: strength 5/5 throughout Psych mental status grossly normal Skin no wounds MDM MDM MDM Narrative Medical decision making narrative: Patient given DuoNeb treatment here. Patient placed on laboratory monitor. EKG obtained to evaluate for cardiac arrhythmia/ischemia. Chest x-ray obtained to evaluate for acute lung pathology, cardiac size, or mediastinal abnormality. Labwork obtained to evaluate for leukocytosis, anemia, and electrolyte derangement. History & Record Review Discussion w/independent historian: Patient Lab Data Attestation: I reviewed the patient's lab results. Labs: Laboratory Results - last 24 hr 06/08/23 14:30 WBC 8.9 RBC 4.46 Hgb 14.6 Hct 43.9 MCV 98.4 MCH 32.7 H MCHC 33.3 RDW Std Deviation 45.6 H RDW Coeff of Alayna 12.6 Plt Count 290 MPV 9.9 Immature Gran % (Auto) 0.700 Neut % (Auto) 78.5 H Lymph % (Auto) 11.7 L [place] % (Auto) 3.3 Eos % (Auto) 5.4 H Baso % (Auto) 0.4 Absolute Neuts (auto) 7.0 Absolute Lymphs (auto) 1.04 Nucleated RBC % 0 D-Dimer Quant (PE/DVT) < 0.27 L Sodium 138 Potassium 3.7 Chloride 106 Carbon Dioxide 25.0 Anion Gap 7 BUN 9 Creatinine 0.87 Estim Creat Clear Calc 77.99 Est GFR (MDRD) Af Amer 86 Est GFR (MDRD) Non-Af 71 BUN/Creatinine Ratio 10.3 Glucose 182 H Calcium 9.4 Troponin I High Sens 3 Radiography Chest X-Ray - ED: 1 View, Read by ED Physician, Normal, Heart, Lungs, Mediastinum and No Infiltrates Diagnostic Testing: Clinical Impression(s) from Imaging Studies Chest X-Ray 06/08/23 14:30 IMPRESSION: Normal x-ray examination of the chest. Electronically Signed: Trav Galindo MD at 14:48 EST , EKG Initial EKG: Attestation: I personally reviewed and interpreted this EKG as follows: Interpretation: Sinus Rhythm (Sinus 81 with no acute ischemia.) Treatment and Re-Evaluation :: CBC was normal white count 8.9 with 78% neutrophils. Hemoglobin normal at 14.6. Chemistry studies unremarkable other than glucose of 182. Patient is currently on prednisone. Troponin is normal at 3 and D-dimer is less than 0.27. EKG is sinus rhythm with no evidence of ischemia. Portable chest x-ray per my interpretation reveals no evidence of infiltrate. Radiology interpretation reviewed and agrees. On repeat examination patient resting comfortably. She states she still feels intermittently short of breath. Lungs are clear to auscultation with good O2 sats. She was just on a course of doxycycline earlier this month and was on cefdinir in late March. I did discuss with her I think a lot of her symptoms are viral in nature the trigger her asthma and I do not think antibiotics would beneficial. She is currently on prednisone which was just started yesterday. I will get her a spacer for her albuterol inhaler and we discussed appropriate timing of inhaler use. Return instructions are given. Discharge Plan Triage Chief Complaint: Asthma ED Provider: Francisca Yanez Dx/Rx/DC Orders Clinical Impression: Asthma exacerbation Instructions: ED Asthma, Acute (Adult) Prescriptions: No Action propranolol 160 mg capsule,extended release 24 hr PO temazepam 15 mg capsule ketoconazole 2 % cream TOPICAL Patient Comments: APPLY TO AFFECTED AREAS OF TRUNK AND GROIN TWICE DAILY NEEDED levothyroxine 112 mcg tablet Primary Care Provider: Taryn Kim Referrals: Taryn Kim MD [Primary Care Provider] - 1 Week if not improving Disposition Disposition: Home, Self Care
[2023-06-08 14:51] LABS: D-Dimer Quantitative (DVT/PE) < 0.27 FEU/ug/m (0.27-0.49)
[2023-06-08 14:55] LABS: Anion Gap 7 (5-15); BUN 9 mg/dL (7-18); BUN/Creat Ratio 10.3 RATIO (10-20); Calcium,Total 9.4 mg/dL (8.5-10.1); Chloride 106 mmol/L (98-107); Creatinine, Serum 0.87 mg/dL (0.55-1.02); EST Glomerular Filtration Rate 71 mL/min (>60); Est Glom Filt Rate - Afr Amer 86 mL/min (>60); Estimated Creatinine Clearance 77.99 ml/min; Glucose 182 mg/dL (74-106); Potassium 3.7 mmol/L (3.5-5.1); Sodium Level 138 mmol/L (136-145); Troponin-I HS 3 pg/mL (3.0-54.0)
[2023-06-08] MEDS: INHALER, ASSIST DEVICES 1 EACH SPACER INHALATION (15:20)
== END 2023-06-08 15:20 | disposition home or self-care (01) ==
PROVIDERS: Emergency Provider Emergency Medicine; PCP Family Medicine; Visit Provider Emergency Medicine
DX: J45.901 Unspecified asthma with (acute) exacerbation (principal); F17.210 Nicotine dependence, cigarettes, uncomplicated; Z86.16 Personal history of COVID-19; Z79.899 Other long term (current) drug therapy
CPT/HCPCS: 71045; 80048; 84484; 85025; 85379; 93005; 94640; 99284

== ENCOUNTER → 2023-07-26 | Outpatient (CLI) | payer OTHER, SELFPAY ==
--- NOTE | 2023-07-26 07:47 | BI_ITS ---
MAMMOGRAPHY - BILATERAL SCREENING REASON FOR EXAM: Female, 58 years old. Routine annual screening examination. PERTINENT HISTORY: Non-contributory. TECHNIQUE: Digital bilateral breast myrna (3D mammographic acquisition) in the CC and MLO projections. 2-D mediolateral oblique (MLO) and craniocaudad (CC) views of both breasts were obtained. CAD: Full Field Digital Mammography with Computer Added Detection was performed. COMPARISON: Comparison is made with prior study dated July 22, 2022 and July 21, 2021. FINDINGS: Breast Composition: The breasts are heterogeneously dense, which may obscure small masses. There are no dominant masses or suspicious calcifications. Stable fat-containing bilateral axillary lymph nodes. No other significant abnormalities are identified. There has been no significant change since the prior study. BI/SCRN MAMM (CAD)W/MYRNA BILAT IMPRESSION: Stable bilateral screening mammogram. Yearly follow-up mammogram recommended. (A) ASSESSMENT CATEGORY: BIRADS Category 2: Benign. A letter regarding these results will be sent to the patient by the facility within 30 days. Approximately 10% of breast cancers are not detected by mammography. A normal mammogram should not delay biopsy of a clinically suspicious abnormality. [id number] Electronically Signed: Trav Galindo MD at 11:18 EDT ,
--- OUTSIDE RECORDS SUMMARY | 2023-07-26 08:07 | XMS RPT_ITS | CCD ---
Author Name Unknown Address [address] [place] [address] Organization [facility] Care Team Providers Care Brush Polisher Name Role Phone Raul BURGESS, Home [place] Primary Care Provider Taryn Kim MD Primary Care Provider TARYN KIM Primary Care Unavailable SELF Referring Unavailable TARYN KIM Primary Care Unavailable CATHERINE CARR Attending Unavailable SELF Referring Unavailable TARYN KIM Primary Care Unavailable CATHERINE CARR Attending Unavailable TARYN KIM Primary Care Unavailable FATMATA KIMH Jay Primary Care Unavailable TARYN KIM Primary Care Unavailable CATHERINE CARR Referring Unavailable Allergies Allergy Classification Reported Allergen(s) Allergy Type Date of Onset Reaction(s) Facility (5 sources) Doxycycline; Translations: [DOXYCYCLINE] Drug Allergy 0 Vomiting [facility] Work Phone: (9 sources) Erythromycin; Translations: [ERYTHROMYCIN] Drug Allergy 1 Intolerance [facility] (9 sources) Ispaghula husk; Translations: [PSYLLIUM HUSK] Drug Allergy 0 Swelling [facility] Work Phone: (9 sources) metroNIDAZOLE; Translations: [METRONIDAZOLE HCL] Drug Allergy 0 Vomiting [facility] Work Phone: (3 sources) Penicillins; Translations: [PENICILLINS] Drug Intolerance 0 Rash [facility] Work Phone: (6 sources) Penicillins Drug Intolerance 0 Rash [facility] Work Phone: Medications Current Medications Medication Drug Class(es) Dates Sig (Normalized) Sig (Original) benzonatate 100 mg oral capsule (1 source) Non-narcotic Antitussive Start: 04-07-2023 End: 04-17-2023 take 2 capsules by mouth three times daily as needed benzonatate (TESSALON PERLE) 100 mg capsule Indications: Sinobronchitis Take 2 capsules by mouth three times a day as needed for up to 10 days. 60 capsule 0 04/07/2023 04/17/2023 Active Completed/Discontinued Medications Medication Drug Class(es) Dates Sig (Normalized) Sig (Original) citalopram 20 mg oral tablet (8 sources) Serotonin Reuptake Inhibitor Start: 12-01-2020 take 1 tablet by mouth once daily citalopram (CELEXA) 20 mg tablet Take 20 mg by mouth once daily. 0 12/01/2020 Active Problems Active Problems Problem Classification Problem Date Documented Date Episodic/Chronic Abdominal pain (4 sources) Pain in pelvis; Translations: [Pelvic and perineal pain] Onset: 07-20-2023 07-19-2023 Episodic Contraceptive and procreative management (3 sources) Intrauterine contraceptive device in situ; Translations: [Encounter for routine checking of intrauterine contraceptive device] Onset: 07-20-2023 07-20-2023 Episodic Genitourinary symptoms and ill-defined conditions (1 source) Female stress incontinence; Translations: [Stress incontinence (female) (male)] 07-19-2023 Chronic Immunizations and screening for infectious disease (3 sources) Patient encounter status; Translations: [Encounter for screening for human papillomavirus (HPV)] 07-19-2023 Episodic Menopausal disorders (1 source) Menorrhagia; Translations: [Excessive bleeding in the premenopausal period] 07-19-2023 Chronic Other female genital disorders (1 source) Abnormal uterine bleeding; Translations: [Abnormal uterine and vaginal bleeding, unspecified] 07-21-2023 Chronic Other female genital disorders (1 source) Vaginal discharge; Translations: [Other specified noninflammatory disorders of vagina] Episodic Other female genital disorders (1 source) H/O: abnormal uterine bleeding; Translations: [Personal history of other diseases of the female genital tract] 07-21-2023 Episodic Other upper respiratory infections (1 source) Chronic sinusitis; Translations: [Chronic sinusitis, unspecified] 04-07-2023 Chronic Other upper respiratory infections (1 source) Viral upper respiratory tract infection; Translations: [Acute upper respiratory infection, unspecified] 04-07-2023 Episodic Otitis media and related conditions (1 source) Acute secretory otitis media; Translations: [Other acute nonsuppurative otitis media, left ear] 04-07-2023 Episodic Urinary tract infections (1 source) Acute cystitis; Translations: [Acute cystitis with hematuria] Episodic Past or Other Problems Problem Classification Problem Date Documented Da te Episodic/Chronic Residual codes; unclassified (8 sources) Family history of cancer of colon; Translations: [Family history of malignant neoplasm of digestive organs] Onset: 09-21-2010 09-21-2010 Episodic Results Test Name Value Interpretation Reference Range Facil ity Vital Signs Date Time Vital Sign Value Performing Clinician Ivonne hwang 07-21-2023 09:58-0500 Body weight 90.08 kg Catherine Carr APRN.INTERLIBRARY LOAN SERVICES LIBRARIAN Work Phone: [facility] 07-21-2023 09:58-0500 Diastolic blood pressure 70 mm[Hg] Catherine Carr WIRE WINDING MACHINE OPERATOR.INTERLIBRARY LOAN SERVICES LIBRARIAN Work Phone: [facility] 07-21-2023 09:58-0500 Systolic blood pressure 120 mm[Hg] Catherine Haury WIRE WINDING MACHINE OPERATOR.INTERLIBRARY LOAN SERVICES LIBRARIAN Work Phone: [facility] 07-19-2023 07:32-0500 Body height 158.1 cm Catherine Carr WIRE WINDING MACHINE OPERATOR.INTERLIBRARY LOAN SERVICES LIBRARIAN Work Phone: [facility] 07-19-2023 07:32-0500 Body weight 90.27 kg Catherine Carr WIRE WINDING MACHINE OPERATOR.INTERLIBRARY LOAN SERVICES LIBRARIAN Work Phone: [facility] 07-19-2023 07:32-0500 Diastolic blood pressure 80 mm[Hg] Catherine Haury WIRE WINDING MACHINE OPERATOR.INTERLIBRARY LOAN SERVICES LIBRARIAN Work Phone: [facility] 07-19-2023 07:32-0500 Systolic blood pressure 112 mm[Hg] Catherine Haury WIRE WINDING MACHINE OPERATOR.INTERLIBRARY LOAN SERVICES LIBRARIAN Work Phone: [facility] 04-07-2023 14:40-0500 Body temperature 98.2 [degF] Oneida Schroeder APRN.INTERLIBRARY LOAN SERVICES LIBRARIAN Work Phone: [facility] 04-07-2023 14:40-0500 Body weight 92.08 kg Oneida Praisler-Wood WIRE WINDING MACHINE OPERATOR.INTERLIBRARY LOAN SERVICES LIBRARIAN Work Phone: [facility] 04-07-2023 14:40-0500 Diastolic blood pressure 62 mm[Hg] Oneida Praisler-Wood WIRE WINDING MACHINE OPERATOR.INTERLIBRARY LOAN SERVICES LIBRARIAN Work Phone: [facility] 04-07-2023 14:40-0500 Heart rate 66 /min Oneida Praisler-Wood WIRE WINDING MACHINE OPERATOR.INTERLIBRARY LOAN SERVICES LIBRARIAN Work Phone: [facility] 04-07-2023 14:40-0500 Respiratory rate 16 /min Oneida Praisler-Wood WIRE WINDING MACHINE OPERATOR.INTERLIBRARY LOAN SERVICES LIBRARIAN Work Phone: [facility] 04-07-2023 14:40-0500 SaO2% (BldA) [Mass fraction] 98 % Oneida Praisler-Wood WIRE WINDING MACHINE OPERATOR.INTERLIBRARY LOAN SERVICES LIBRARIAN Work Phone: [facility] 04-07-2023 14:40-0500 Systolic blood pressure 118 mm[Hg] Oneida Praisler-Wood WIRE WINDING MACHINE OPERATOR.INTERLIBRARY LOAN SERVICES LIBRARIAN Work Phone: [facility] 04-05-2022 07:03-0500 Body height 157.5 cm Liza Eloisa WIRE WINDING MACHINE OPERATOR.INTERLIBRARY LOAN SERVICES LIBRARIAN Work Phone: [facility] 04-05-2022 07:03-0500 Body weight 91.08 kg Liza Eloisa WIRE WINDING MACHINE OPERATOR.INTERLIBRARY LOAN SERVICES LIBRARIAN Work Phone: [facility] 04-05-2022 07:03-0500 Diastolic blood pressure 64 mm[Hg] Liza Eloisa WIRE WINDING MACHINE OPERATOR.INTERLIBRARY LOAN SERVICES LIBRARIAN Work Phone: [facility] 04-05-2022 07:03-0500 Systolic blood pressure 120 mm[Hg] Liza [place]ville WIRE WINDING MACHINE OPERATOR.INTERLIBRARY LOAN SERVICES LIBRARIAN Work Phone: [facility] 08-24-2021 18:24-0400 Body temperature 97.81 [degF] Garret Sandoval PA-C Work Phone: [facility] 08-24-2021 18:24-0400 Body weight 94.35 kg Garret Sandoval PA-C Work Phone: [facility] 08-24-2021 18:24-0400 Diastolic blood pressure 64 mm[Hg] Garret Murrayy PA-C Work Phone: [facility] 08-24-2021 18:24-0400 Heart rate 88 /min Garretgriffin Murrayy PA-C Work Phone: [facility] 08-24-2021 18:24-0400 Respiratory rate 18 /min Garretgriffin Murrayy PA-C Work Phone: [facility] 08-24-2021 18:24-0400 SaO2% (BldA) [Mass fraction] 97 % Garret Murrayy PA-C Work Phone: [facility] 08-24-2021 18:24-0400 Systolic blood pressure 108 mm[Hg] Garret Murrayy PA-C Work Phone: [facility] Encounters Encounter Date Encounter Type Care Provider Facility Start: 07-21-2023 End: 07-21-2023 ambulatory SELF Facility:[facility] Start: 07-21-2023 End: 07-21-2023 Patient encounter procedure Catherine Carr APRN.INTERLIBRARY LOAN SERVICES LIBRARIAN Work Phone: OB/Gynecology Procedures Date Procedure Procedure Detail Performing Clinician Start: 08-24-2021 Urnls dip stick/tabl et rgnt auto w/o microscopy [facility] Provider Start: 07-21-2021 Mammography Liza [facility] john DE JESUSINTERLIBRARY LOAN SERVICES LIBRARIAN Work Phone: Start: 02-02-2021 Colonoscopy Garret Sandoval PA-C Work Phone: Plan of Treatment Date Care Activity Detail Author Start: 02-02-2026 Colonoscopy COLONOSCOPY [facility] Start: 02-02-2026 COLORECTAL CANCER SCREENING COLORECTAL CANCER SCREENING [facility] Start: 02-02-2026 Screening for malign ant neoplasm of colon [facility] Start: 07-19-2023 End: 10-18-2023 Estradiol (E2) [Mass/volume] in Serum or Plasma [facility] Work Phone: Immunizations Immunization Date Immunization Notes Care Provider Cuauhtemoc schumacher 03-24-2022 influenza virus vaccine, unspecified formulation Oneida Schroeder APRN.CNP Work Phone: [facility] 02-26-2021 influenza, injectabl e, quadrivalent, contains preservative Garret Sandoval PA-C Work Phone: [facility] Work Phone: 06-17-2020 COVID-19 vaccine, fu ll dose (MODERNA) Garret Sandoval PA-C Work Phone: [facility] Work Phone: 05-20-2020 COVID-19 vaccine, fu ll dose (MODERNA) Garret BRITT-Carolynn Work Phone: [facility] Work Phone: Payers Date Payer Category Payer Private Health Insurance [facility] [employer] [id number] 2021-Present [address] [address] [place] [address] PPO [id number] 2021 Private Health Insurance [facility] [employer] [id number] 2021-Present [address] [address] [place] [address] PPO [id number] 2021 Unknown [id number] Social History Date Type Detail Facility Start: [facility] Work Phone: End: 08-13-2017 History of tobacco use Current smoker [facility] Work Phone: End: 08-13-2017 History of tobacco use Cigarette Smoker [facility] Work Phone: Start: 04-25-2018 End: 07-19-2023 Cigarettes smoked current (pack per day) - Reported 1 [facility] Work Phone: Start: 04-25-2018 End: 07-19-2023 Tobacco use and exposure Smokeless tobacco non-user [facility] Work Phone: Start: 08-24-2021 End: 07-21-2023 Alcohol intake Current drinker of alcohol (finding) [facility] Start: 03-09-2010 History SDOH Alcohol Comment weekly [facility] Start: 05-06-2020 History SDOH Social Connections Phone 5 [facility] Start: 05-06-2020 History SDOH Social Connections Get Together 2 [facility] Start: 05-06-2020 History SDOH Social Connections Uatsdin 1 [facility] Start: 05-06-2020 History SDOH Social Connections Living 3 [facility] Start: 05-06-2020 History SDOH Physica l Activity DPW 0 [facility] Start: 05-06-2020 Education 21 [facility] Start: 1965 Sex Assigned At Female [facility] Start: 08-14-2021 End: 04-05-2022 Exposure to SARS-CoV-2 (event) Not sure [facility] Start: 04-05-2022 End: 07-19-2023 Tobacco smoking status NHIS Smokes tobacco daily [facility] Work Phone: Start: 05-06-2020 End: 07-19-2023 Social connection and isolation panel [facility] Work Phone: Do you belong to any clubs or organizations such as catholic groups, unions, fraternal or athletic groups, or school groups? No [facility] Work Phone: Are you now , , , , never or living with a partner? [facility] Work Phone: Do you feel stress - tense, restless, nervous, or anxious, or unable to sleep at night because your mind is troubled all the time - these days [OSQ] Not at all [facility] Work Phone: National Score (1-10 0), lower number is lower risk 62 [facility] Start: 03-30-2021 Gender identity Identifies as female gender (finding) [facility] Clinical Notes 08-24-2021 to 07-21-2023 Catherine Carr APRN.INTERLIBRARY LOAN SERVICES LIBRARIAN - 07/21/2023 10:00 AM Malinda PhilippeSOPHIE - 07/20/2023 2:30 PM ESTTelephone Encounter - Elen Sanchez RN - 07/20/2023 10:20 AM ESTPatient InstructionsPatient Instructions Note Date & Type Note Facility 07-21-2023 Note HNO ID: [id number] Author: CATHERINE CARR APRN.CNP Service: ? Author Type: Nurse Practitioner Type: Progress Notes Filed: 07/21/2023 10:22 Note Text: It Intern offered: Patient declines. Karyn is a 58 year old Female who presents today for an endometrial biopsy for history of abnormal uterine bleeding. test: n/a UNIVERSAL PROTOCOL / SAFETY CHECKLIST Procedure to be Performed: Endometrial Biopsy Sign In: A Moment of CARE was completed. Personnel directly involved with the procedure wore the appropriate PPE (Personal Protective Equipment). Patient/Surrogate Stated/Verified: PATIENT VERIFIED(optional for EMERGENT procedures): Patient name, Date of , Relevant allergies, and The intended procedure Time Out Communication: Intended patient and procedure match the source documents. Consent documented and matches the intended procedure. Sign Out: SIGN OUT (optional for EMERGENT procedures): All specimen containers correctly labeled. All instruments, equipment, possible retained foreign bodies accounted for. Post-procedure follow-up management communicated and Plan of Care Visit completed when applicable. Catherine Carr APRN.WEI PROCEDURE: EXTERNAL GENITALIA: Normal in appearance without lesions VAGINA: Normal in appearance without lesions BIOPSY: Speculum placed into the vagina with excellent visualization of the cervix. Anterior lip of cervix grasped with single toothed tenaculum. Uterus sounded to 8 cm. Pipelle inserted into the uterus without difficulty and endometrial biopsy obtained. Specimen labeled and sent to pathology. Hemostasis achieved. Procedure Summary: Patient tolerated procedure well. ASSESSMENT: history of abnormal uterine bleeding PLAN: Specimens labeled and sent to Pathology. Will notify patient of results in 1-2 weeks. Post-procedure instructions reviewed and written material given to the patient. Catherine Carr APRN.WEI [facility] 07-21-2023 History of Presen t illness Narrative It Intern offered: Patient declines. Karyn is a 58 year old Female who presents today for an endometrial biopsy for history of abnormal uterine bleeding. test: n/a UNIVERSAL PROTOCOL / SAFETY CHECKLIST Procedure to be Performed: Endometrial Biopsy Sign In: A Moment of CARE was completed. Personnel directly involved with the procedure wore the appropriate PPE (Personal Protective Equipment). Patient/Surrogate Stated/Verified: PATIENT VERIFIED(optional for EMERGENT procedures): Patient name, Date of , Relevant allergies, and The intended procedure Time Out Communication: Intended patient and procedure match the source documents. Consent documented and matches the intended procedure. Sign Out: SIGN OUT (optional for EMERGENT procedures): All specimen containers correctly labeled. All instruments, equipment, possible retained foreign bodies accounted for. Post-procedure follow-up management communicated and Plan of Care Visit completed when applicable. Catherine Carr APRN.CNP PROCEDURE: EXTERNAL GENITALIA: Normal in appearance without lesions VAGINA: Normal in appearance without lesions BIOPSY: Speculum placed into the vagina with excellent visualization of the cervix. Anterior lip of cervix grasped with single toothed tenaculum. Uterus sounded to 8 cm. Pipelle inserted into the uterus without difficulty and endometrial biopsy obtained. Specimen labeled and sent to pathology. Hemostasis achieved. Procedure Summary: Patient tolerated procedure well. ASSESSMENT: history of abnormal uterine bleeding PLAN: Specimens labeled and sent to Pathology. Will notify patient of results in 1-2 weeks. Post-procedure instructions reviewed and written material given to the patient. Catherine Carr APRN.WEI documented in this encounter [facility] 07-20-2023 Note HNO ID: [id number] Author: MALINDA HERNANDEZ RDMS Service: ? Author Type: Woodworking Craftsman Type: Progress Notes Filed: 07/20/2023 15:10 Note Text: Radiology Service Progress Note PATIENT NAME: Karyn Umanzor DATE OF SERVICE: July 20, 2023 TIME: 3:10 PM PATIENT IDENTITY VERIFICATION COMPLETED USING TWO (2) IDENTIFIERS: Name and Date of confirmed by patient verbally. FALL SCREENING: Has the patient had 2 falls in the last year or 1 fall with injury or currently using an Ambulatory Assistive Device (Walker, Cane, Wheelchair, Crutches, etc.)? No PATIENT GENDER DATA: Female. status: : No status: NO. PATIENT RELEVANT IMPLANT DATA REVIEWED: Not Applicable PATIENT PRESENTS WITH AN IMPLANTABLE OR ATTACHED GLASS MOULD CLEANER: No RADIOLOGY DEPARTMENT: Ultrasound PERIPHERAL IV DATA: Not applicable SIGNED BY: Malinda Hernandez RDMS July 20, 2023 3:10 PM [facility] 07-20-2023 History of Presen t illness Narrative Radiology Service Progress Note PATIENT NAME: Karyn Umanzor DATE OF SERVICE: July 20, 2023 TIME: 3:10 PM PATIENT IDENTITY VERIFICATION COMPLETED USING TWO (2) IDENTIFIERS: Name and Date of confirmed by patient verbally. FALL SCREENING: Has the patient had 2 falls in the last year or 1 fall with injury or currently using an Ambulatory Assistive Device (Walker, Cane, Wheelchair, Crutches, etc.)? No PATIENT GENDER DATA: Female. status: : No status: NO. PATIENT RELEVANT IMPLANT DATA REVIEWED: Not Applicable PATIENT PRESENTS WITH AN IMPLANTABLE OR ATTACHED GLASS MOULD CLEANER: No RADIOLOGY DEPARTMENT: Ultrasound PERIPHERAL IV DATA: Not applicable SIGNED BY: Malinda Hernandez RDMS July 20, 2023 3:10 PM documented in this encounter [facility] 07-20-2023 Miscellaneous Notes Patient notified and voiced understanding. Patient scheduled for ultrasound today and EMB tomorrow. FYI. Elen Sanchez RN Please notify patient: Labs consistent with menopause. Vaginal cultures negative for infection. Read 's IUD insertion note and IUD strings were cut to 2 cm and they were longer than that with exam so I do recommend ultrasound to verify location. I also recommend proceeding with EMB as we discussed yesterday. Please assist in scheduling. Catherine Carr APRN.CNP documented in this encounter [facility] 07-19-2023 Note HNO ID: [id number] Author: CATHERINE CARR APRN.CNP Service: ? Author Type: Nurse Practitioner Type: Progress Notes Filed: 07/19/2023 08:22 Note Text: Karyn is a 58 year old who presents for an annual gynecologic exam with a concern of a tingling pin prick sensation to the lower middle abdomen that comes and goes. It started about 6 months ago and is intermittent. It lasted about 10 minutes yesterday. She denies urinary frequency or urgency. She does experience stress incontinence. She fell last spring and still has pain to her tailbone. Her mother has osteoporosis. Karyn had an IUD placed in 2020 for heavy menstrual bleeding. The previous IUD was not in the right location. She did not have an endometrial biopsy. It us unknown whether she is post menopausal. Postmenopausal: Unknown, was still having heavy bleeding at age 56 HRT use: No. Last Pap: 04/19/2018 normal HPV: 04/16/2018 negative History of abnormal pap: No Last mammogram: 2021 normal History of abnormal mammogram: No Sexually active: Yes History of STDS: chlamydia Pain with intercourse: No Postcoital bleeding: No Hot flashes: Yes, multiple times per day Night sweats: Yes Vaginal dryness: No Exercise: active job OB History T2 L2 SAB0 IAB0 Ectopic0 Multiple0 Live Births0 [employer] History LMP: LMP Unknown, IUD Age at Menarche: Age at First : Age at Menopause: [employer] History Comments: Sexual Activity: Yes; Male Contraception: Tubal Ligation PAST MEDICAL HISTORY Diagnosis Date Arthritis Asthma Benign head tremor Hypothyroidism PMH - PAST MEDICAL HISTORY OF depression PMH - PAST MEDICAL HISTORY OF seasonal allergies PMH - PAST MEDICAL HISTORY OF IBS PMH - PAST MEDICAL HISTORY OF Restless leg PMH - PAST MEDICAL HISTORY OF carpal tunnel PAST SURGICAL HISTORY Procedure Laterality Date ABDOMINAL SURGERY HX COLONOSCOPY FLX DX W/COLLJ SPEC WHEN PFRMD 09/21/2010 repeat 09/2015 COLONOSCOPY FLX DX W/COLLJ SPEC WHEN PFRMD 11/24/2015 normal - 5 year follow up COLONOSCOPY FLX DX W/COLLJ SPEC WHEN PFRMD 02/02/2021 DILATION AND CURETTAGE DXAND/THER NONOBSTETRIC Dilation AND curettage LIG/TRNSXJ FLP TUBE ABDL/VAG APPR UNI/BI Tubal ligation REVISE MEDIAN N/CARPAL TUNNEL SURG Right 11/2019 SKIN BIOPSY HX FAMILY HISTORY Problem Relation Age of Onset Cancer Father colon Cancer Sister colon SOCIAL HISTORY Social History Tobacco Use Smoking status: Every Day Packs/day: 1.00 Years: 25.00 Additional pack years: 0.00 Total pack years: 25.00 Types: Cigarettes Last attempt to quit: 08/2017 Years since quittin.9 Smokeless tobacco: Never Vaping Use Vaping Use: Never used Substance Use Topics Alcohol use: Yes Comment: weekly Drug use: No REVIEW OF SYSTEMS Abdomen: No abdominal pain, nausea, vomiting, diarrhea, or constipation. No bloating, early satiety, indigestion, or increased flatulence. + irritable bowel syndrome Bladder: No dysuria, gross hematuria, urinary frequency, urinary urgency + stress incontinence, tingling pinprick sensation Breast: No breast lumps, nipple d/c, overlying skin changes, redness or skin retraction Allergies and current medication updated:Yes EXAM: BP 112/80 Ht 5' 2.25 (1.58m) Wt 199 lb (90.3kg) BMI 36.11 kg/(m2). GENERAL: pleasant, female in no apparent distress HEENT: Normocephalic, atraumatic, mucus membranes moist, and no lesions NECK: Supple, full range of motion, no adenopathy, and thyroid normal DERMATOLOGY: Normal, without lesions, non-icteric, and non-hirsute BREAST: soft, non-tender, symmetric, no dominant mass, normal nipple-areolar complex, no lymphadenopathy, and no nipple discharge CHEST: Normal inspiratory effort ABDOMEN: soft, non-tender, and no masses PELVIC: external genitalia normal, normal Bartholin's glands, urethra, [place]'s glands, no vulvar lesions, no cervical lesions, good vaginal support, physiologic discharge present, normal appearing perineal body and perianal region + IUD strings visible BIMANUAL: uterus normal size, shape and consistency, no adnexal masses, and non-tender RECTOVAGINAL: deferred. NEURO: alert and oriented x3,exam grossly non-focal EXTREMITIES: normal ASSESSMENT/PLAN: 1) Health maintenance: Pap done with HPV. Mammogram ordered Nutrition, exercise and routine health maintenance exams reviewed. Calcium/Vitamin D supplementation information provided. Colon cancer screening: up to date with screening TSH/lipids/glucose: followed by PCP 2) Follow up one year or sooner as needed Excessive bleeding in premenopausal period - ICD9: 627.0, ICD10: N92.4 - Menopausal status unknown - FSH/Estradiol level today - Never had EMB, discussed that I recommend an EMB for heavy menstrual bleeding that she was experiencing at age 56. No bleeding with IUD, but I still recommend proceeding with EMB to ensure IUD is not mask (more content not included)... [facility] 07-19-2023 Instructions Catherine Carr APRN.INTERLIBRARY [employer] SERVICES LIBRARIAN - 07/19/2023 7:49 AM EST How To Perform Pelvic Floor (Kegel) Exercises These exercises help to strengthen the pelvic floor muscles and can help improve bladder control for women. 1. You should have been instructed in the office how to contract these muscles. At home, you can insert two fingers in the vagina and feel the contraction of these muscles as you squeeze. We call these muscles the pelvic floor because they help support the pelvic organs, especially during coughing and sneezing. Squeezing the pelvic floor while standing feels like you are lifting the area around the vagina, and will interrupt the stream of urine while voiding. Once you are certain which muscles to use, do not exercise while urinating. Make sure you are not bearing down, squeezing your buttocks, or straining abdominally: these are not the muscles to be exercised. You may wish to place hands on your buttock muscles to keep these muscles relaxed while performing the exercises. 2. Squeeze these muscles as hard as you can for a slow count of five, eventually working up to a slow count of ten. Rest for 15 seconds, and then start another contraction. At first. these muscles may feel sore, just as other muscles may feel sore after exercise. 3. You should perform 50 squeezes every day: make sure every squeeze count by alee as hard as you can! Many women try to do these exercises in sets of five or ten at a time. Remind yourself to do these exercises by starting them every time you are waiting at a red light, watching a television commercial, or on hold on the telephone. If you are having trouble concentrating, you may want to set aside a special time to perform sets of pelvic floor exercises. 4. In addition to the long, hard contractions you are doing try doing some quick flicks of these muscles throughout the day. 5. You should be seen in the office after starting these exercises to make sure you are performing the contraction correctly: you may have never known how to contract these muscles before starting pelvic floor exercises, and many patients mistakenly exercise the wrong muscles. If you still feel frustrated about which muscles to use ask us for help. There are physical therapy specialists who work with pelvic floor muscles. 6. Work hard! As with any exercise program, improvement often is related to how faithfully you adhere to your exercise program. Pelvic floor exercises do not have the side effects and expense associated with other treatments for urinary incontinence, and have been known to help with severe stress incontinence. It may take several months to see the full effect of your exercise program: if you are easily discouraged, see your doctor or doctor at regular visits to assess what progress you are making. Techniques to avoid urinary accidents: Empty your bladder regularly and prior to physical activity. Avoid activity that causes leakage, if possible. Avoid or moderate the intake of alcohol and caffeine products. Try to restrict fluids prior to planned activities. Wear appropriate protection. Prevent chronic coughing which can cause a loss of urinary control. Ways to prevent chronic coughing include treating asthma, restricting smoking, and removing allergy-causing agents from your environment. Calcium and Vitamin D Supplementation (from the National Institutes of Health Office of Dietary Supplements 2011) Calcium is required by the body for blood vessel, muscle, hormone and nerve functioning. Most of the body's calcium is stored in the bones and teeth where it supports structure and function. Bone is continuously broken down and reformed. When bone breakdown exceeds formation, especially in postmenopausal women, bone loss can increase the risk of osteoporosis and fractures. In addition to low calcium intake, women who smoke, have a family history of osteoporosis, are thin, or , or who take certain medications such as cancer chemotherapy, seizure mediations and steroids are at increased risk of osteoporosis. The calcium requirements in women change with age. The National Institutes of Health (NIH) recommends: 1000mg elemental calcium for premenopausal women age 19-50 1200mg elemental calcium for postmenopausal women and all women over 50 Milk, yogurt, and cheese are rich natural sources of calcium and are the major food contributors in the [place]. For example, 8oz of milk (whole, lowfat or skim) contains about 300mg calcium, 8oz of yogurt contains 415mg. Nondairy sources include salmon and sardines and vegetables, such as Syriac cabbage, kale, and broccoli. Foods fortified with calcium include many fruit juices, tofu and cereals. For more food calcium content information, visit http://ods.od.nih.gov/factsheet s/calcium. Calcium supplements come in several different forms. Remember that the recommendations are for millgrams (mg) of elemental calcium which may be less than the total weight of the supplement. The amount of elemental calcium is required to be printed on the label. Calcium carbonate is the least expensive form. It must be taken on a full stomach to be properly absorbed. Some patients may experience gas or constipation. Calcium phosphate and calcium citrate may be taken either with or without food and tend to have less side effects but are generally more expensive. Because of its ability to neutralize stomach acid, calcium carbonate is found in some wadb-vah-[id number] antacid products, such as Tums and Rolaids . Depending on its strength, each chewable pill or softchew provides 200 to 400 mg of elemental calcium. The percentage of calcium absorbed depends on the total amount of elemental calcium consumed at one time. Absorption is highest in doses <500mg. So a woman who takes 1,000mg/day of calcium from supplements should split the dose and take 500mg at two separate times during the day. Too much calcium can cause kidney stones, constipation, difficulty absorbing other nutrients and calcium buildup in blood vessels. Women under 50 should not exceed 2500mg/day (2000mg/day for women over 50) of calcium from food and supplements. Excessive alcohol and caffeine intake can inhibit absorption of calcium. Calcium can reduce the absorption of some medications if taken at the same time of day (bisphosphonates, thyroid medication, Phenytoin and other seizure medications, some antibiotics and iron supplements). Vitamin D promotes calcium absorption in the gut and maintains adequate blood levels of calcium and phosphate for normal bone growth and bone remodeling. Vitamin D also helps regulate cell growth as well as nerve, muscle and immune system function. Vitamin D is produced in the skin as a result of ultraviolet sunlight rays and must be altered in the liver and kidney to become its active form. Recommended intake according to the National Institutes of Health is 600 International Units (IU) for girls and women ages 1-70 and 800 IU for women over 70. Very few foods in nature contain vitamin D. The flesh of fatty fish (such as salmon, tuna, and mackerel) and fish liver oils are among the best sources. Small amounts of vitamin D are found in beef liver, cheese, mushrooms and egg yolks. Most people meet at least some of their vitamin D needs through exposure to sunlight. Season, time of day, length of day, cloud cover, smog, skin melanin content, and sunscreen are among the factors that affect UV radiation exposure and vitamin D synthesis. Despite the importance of the sun for vitamin D synthesis, it is prudent to limit exposure of skin to sunlight and avoid tanning beds. UV radiation is a carcinogen responsible for most of the estimated 1.5 million skin cancers that occur annually in the [place]. Lifetime cumulative UV damage to skin is also responsible for some age-associated dryness and other cosmetic changes. In supplements and fortified foods, vitamin D is available in two forms, D2 (ergocalciferol) and D3 (cholecalciferol). The two are equivalent at normal supplement doses. For women who require high supplement doses because of vitamin D deficiency, D3 may work better to raise blood levels. Some medications can prevent proper absorption of Vitamin D. These include laxatives, corticosteroids like prednisone, the seizure drugs phenobarbital and phenytoin, the weight-loss drug orlistat ( Xenical and AlliTM) and the cholesterol-lowering drug cholestyramine (Questran , LoCholest , and Prevalite ). Talk to your doctor about adjusting your recommended daily vitamin D dosage if you take these medications. You should not exceed 4000 mg of vitamin D supplementation daily unless specifically prescribed by your doctor. BONE MINERAL DENSITY PATIENT INSTRUCTIONS Bone mineral density testing measures the amount of calcium in certain parts of your bones. This information determines how strong your bones are. The test is used to detect osteoporosis, a disease in which the bone's mineral content and density are low, increasing a person's risk of fractures. The lumbar spine (lower back) and the hip are the skeletal sites usually examined. For the test, remember that: 1. You cannot take this test if you are . 2. Eat a normal diet on the day of the test. 3. Take your medications as you normally would. 4. DO NOT take calcium supplements (such as Tums) for 24 hours before the test. 5. On the day of the test, leave valuables (jewelry or credit cards) at home. 6. The test should be performed prior to oral, rectal or IV contrast studies, or at least 7 days after any of these studies. For the test, you may be asked to wear a hospital gown. You will lie on your back, on a padded table, in a comfortable position. Generally, you can resume your usual activities immediately. documented in this encounter [facility] 07-19-2023 History of Presen t illness Narrative Karyn is a 58 year old who presents for an annual gynecologic exam with a concern of a tingling pin prick sensation to the lower middle abdomen that comes and goes. It started about 6 months ago and is intermittent. It lasted about 10 minutes yesterday. She denies urinary frequency or urgency. She does experience stress incontinence. She fell last spring and still has pain to her tailbone. Her mother has osteoporosis. Karyn had an IUD placed in 2020 for heavy menstrual bleeding. The previous IUD was not in the right location. She did not have an endometrial biopsy. It us unknown whether she is post menopausal. Postmenopausal: Unknown, was still having heavy bleeding at age 56 HRT use: No. Last Pap: 04/19/2018 normal HPV: 04/16/2018 negative History of abnormal pap: No Last mammogram: 2021 normal History of abnormal mammogram: No Sexually active: Yes History of STDS: chlamydia Pain with intercourse: No Postcoital bleeding: No Hot flashes: Yes, multiple times per day Night sweats: Yes Vaginal dryness: No Exercise: active job OB History T2 L2 SAB0 IAB0 Ectopic0 Multiple0 Live Births0 [employer] History LMP: LMP Unknown, IUD Age at Menarche: Age at First : Age at Menopause: [employer] History Comments: Sexual Activity: Yes; Male Contraception: Tubal Ligation PAST MEDICAL HISTORY Diagnosis Date Arthritis Asthma Benign head tremor Hypothyroidism PMH - PAST MEDICAL HISTORY OF depression PMH - PAST MEDICAL HISTORY OF seasonal allergies PMH - PAST MEDICAL HISTORY OF IBS PMH - PAST MEDICAL HISTORY OF Restless leg PMH - PAST MEDICAL HISTORY OF carpal tunnel PAST SURGICAL HISTORY Procedure Laterality Date ABDOMINAL SURGERY HX COLONOSCOPY FLX DX W/COLLJ SPEC WHEN PFRMD 09/21/2010 repeat 09/2015 COLONOSCOPY FLX DX W/COLLJ SPEC WHEN PFRMD 11/24/2015 normal - 5 year follow up COLONOSCOPY FLX DX W/COLLJ SPEC WHEN PFRMD 02/02/2021 DILATION & CURETTAGE DX&/THER NONOBSTETRIC Dilation & curettage LIG/TRNSXJ FLP TUBE ABDL/VAG APPR UNI/BI Tubal ligation REVISE MEDIAN N/CARPAL TUNNEL SURG Right 11/2019 SKIN BIOPSY HX FAMILY HISTORY Problem Relation Age of Onset Cancer Father colon Cancer Sister colon SOCIAL HISTORY Social History Tobacco Use Smoking status: Every Day Packs/day: 1.00 Years: 25.00 Additional pack years: 0.00 Total pack years: 25.00 Types: Cigarettes Last attempt to quit: 08/2017 Years since quittin.9 Smokeless tobacco: Never Vaping Use Vaping Use: Never used Substance Use Topics Alcohol use: Yes Comment: weekly Drug use: No REVIEW OF SYSTEMS Abdomen: No abdominal pain, nausea, vomiting, diarrhea, or constipation. No bloating, early satiety, indigestion, or increased flatulence. + irritable bowel syndrome Bladder: No dysuria, gross hematuria, urinary frequency, urinary urgency + stress incontinence, tingling pinprick sensation Breast: No breast lumps, nipple d/c, overlying skin changes, redness or skin retraction Allergies and current medication updated:Yes EXAM: BP 112/80 Ht 5' 2.25 (1.58m) Wt 199 lb (90.3kg) BMI 36.11 kg/(m^2). GENERAL: pleasant, female in no apparent distress HEENT: Normocephalic, atraumatic, mucus membranes moist, and no lesions NECK: Supple, full range of motion, no adenopathy, and thyroid normal DERMATOLOGY: Normal, without lesions, non-icteric, and non-hirsute BREAST: soft, non-tender, symmetric, no dominant mass, normal nipple-areolar complex, no lymphadenopathy, and no nipple discharge CHEST: Normal inspiratory effort ABDOMEN: soft, non-tender, and no masses PELVIC: external genitalia normal, normal Bartholin's glands, urethra, [place]'s glands, no vulvar lesions, no cervical lesions, good vaginal support, physiologic discharge present, normal appearing perineal body and perianal region + IUD strings visible BIMANUAL: uterus normal size, shape and consistency, no adnexal masses, and non-tender RECTOVAGINAL: deferred. NEURO: alert and oriented x3,exam grossly non-focal EXTREMITIES: normal ASSESSMENT/PLAN: 1) Health maintenance: Pap done with HPV. Mammogram ordered Nutrition, exercise and routine health maintenance exams reviewed. Calcium/Vitamin D supplementation information provided. Colon cancer screening: up to date with screening TSH/lipids/glucose: followed by PCP 2) Follow up one year or sooner as needed Excessive bleeding in premenopausal period - ICD9: 627.0, ICD10: N92.4 - Menopausal status unknown - FSH/Estradiol level today - Never had EMB, discussed that I recommend an EMB for heavy menstrual bleeding that she was experiencing at age 56. No bleeding with IUD, but I still recommend proceeding with EMB to ensure IUD is not masking AUB due to other etiology Pelvic cramping - ICD9: 625.9, ICD10: R10.2 - Discussed possibility of interstitial cystitis, bladder irritants reviewed - ANT/TRICHOMONAS NAAT - BACTERIAL VAGINOSIS NAAT - Consider ultrasound Encounter for screening for osteoporosis - ICD9: V82.81, ICD10: Z13.820 - DEXA scan ordered - Mother with osteoporosis Female stress incontinence - ICD9: 625.6, ICD10: N39.3 - Kegel exercise information provided via patient instructions Catherine Carr APRN.[employer] SERVICES LIBRARIAN documented in this encounter [facility] 05-18-2023 Note HNO ID: [id number] Author: GARRET SANDOVAL PA-C Service: ? Author Type: Physician Quality Assurance Engineer Type: Progress Notes Filed: 05/18/2023 10:11 Note Text: This note was created using [employer]. Subjective Karyn Umanzor is a 58 year old female. HPI Presents with sinus pressure and congestion over the past 3 weeks. She was seen on 04/07 and diagnosed with a viral URI and ear infection. She was on cefdinir and prednisone at that time. She states that had improved. She however did have COVID then in early April. Since then she is continue to have sinus pressure and congestion as well as headaches. She has tried nasal saline [id number]. States she does not tolerate cold medicines well. No fever since the beginning of COVID. Denies significant cough. No chest pain or shortness of breath. No vomiting or diarrhea. She did take a round of prednisone with the COVID as well due to her asthma flaring up. Review of Systems Constitutional: Negative. HENT: Positive for congestion, ear pain, postnasal drip, sinus pressure and sinus pain. Respiratory: Negative. Cardiovascular: Negative. Gastrointestinal: Negative. Genitourinary: Negative. Musculoskeletal: Negative. All other systems reviewed and are negative. PAST MEDICAL HISTORY Diagnosis Date Arthritis Asthma Benign head tremor Hypothyroidism PMH - PAST MEDICAL HISTORY OF depression PMH - PAST MEDICAL HISTORY OF seasonal allergies PMH - PAST MEDICAL HISTORY OF IBS PMH - PAST MEDICAL HISTORY OF Restless leg PMH - PAST MEDICAL HISTORY OF carpal tunnel Current Outpatient Medications Medication Sig Dispense Refill levonorgestrel (MIRENA) 20 mcg/24 hours (7 yrs) 52 mg IUD 1 Each by INTRAUTERINE route as directed. 1 Each 0 primidone (MYSOLINE) 250 mg tablet citalopram (CELEXA) 20 mg tablet Take 20 mg by mouth once daily. levothyroxine (SYNTHROID) 112 mcg tablet take 1 tablet by mouth once daily ON AN EMPTY STOMACH propranolol ER (INDERAL LA) 160 mg Cs24 Take 160 mg by mouth once daily. montelukast (SINGULAIR) 10 mg tablet Take 10 mg by mouth daily at bedtime. loratadine (CLARITIN) 10 mg tablet Take 1 tablet by mouth once daily. 30 tablet 11 temazepam (RESTORIL) 15 mg Take one(1) tablet daily at bedtime. doxycycline (VIBRA-TABS) 100 mg tablet Take 1 tablet by mouth two times a day for 7 days. 14 tablet 0 fluticasone (FLONASE) 50 mcg/actuation nasal spray Use 2 Sprays in each nostril once daily. Rinse mouth after use. 1 Each 0 promethazine (PHENERGAN) 12.5 mg tablet Take 1 tablet by mouth two times a day for 7 days. 14 tablet 0 No current facility-administered medications for this visit. PAST SURGICAL HISTORY Procedure Laterality Date ABDOMINAL SURGERY HX COLONOSCOPY FLX DX W/COLLJ SPEC WHEN PFRMD 09/21/2010 repeat 09/2015 COLONOSCOPY FLX DX W/COLLJ SPEC WHEN PFRMD 11/24/2015 normal - 5 year follow up COLONOSCOPY FLX DX W/COLLJ SPEC WHEN PFRMD 02/02/2021 DILATION AND CURETTAGE DXAND/THER NONOBSTETRIC Dilation AND curettage LIG/TRNSXJ FLP TUBE ABDL/VAG APPR UNI/BI Tubal ligation REVISE MEDIAN N/CARPAL TUNNEL SURG Right 11/2019 SKIN BIOPSY HX FAMILY HISTORY Problem Relation Age of Onset Cancer Father colon Cancer Sister colon Social History Tobacco Use Smoking status: Every Day Packs/day: 1.00 Years: 25.00 Additional pack years: 0.00 Total pack years: 25.00 Types: Cigarettes Last attempt to quit: 08/2017 Years since quittin.7 Smokeless tobacco: Never Vaping Use Vaping Use: Never used Substance Use Topics Alcohol use: Yes Comment: weekly Drug use: No Objective BP 121/76 Pulse 63 Temp 36.6 ?C (97.8 ?F) Resp 18 Wt 93 kg (205 lb) LMP (LMP Unknown) SpO2 97% BMI 37.49 kg/m? Physical Exam Vitals reviewed. Constitutional: Appearance: Normal appearance. HENT: Head: Normocephalic and atraumatic. Right Ear: Tympanic membrane, ear canal and external ear normal. Left Ear: Tympanic membrane, ear canal and external ear normal. Nose: Congestion present. Right Sinus: Maxillary sinus tenderness present. No frontal sinus tenderness. Left Sinus: Maxillary sinus tenderness present. No frontal sinus tenderness. Mouth/Throat: Mouth: Mucous membranes are moist. Pharynx: Oropharynx is clear. Cardiovascular: Rate and Rhythm: Normal rate and regular rhythm. Heart sounds: Normal heart sounds. Pulmonary: Effort: Pulmonary effort is normal. Breath sounds: Normal breath sounds. Musculoskeletal: Cervical back: Neck supple. Lymphadenopathy: Cervical: No cervical adenopathy. Skin: General: Skin is warm and dry. Neurological: Mental Status: She is alert. Assessment and Plan ASSESSMENT/PLAN: 1. Acute non-recurrent maxillary sinusitis - ICD9: 461.0, ICD10: J01.00 -Patient does have multiple allergies listed on her chart. Doxycycline is listed as vomiting. She states she had taken Flagyl and doxycycline together a few years (more content not included)... [facility] 04-07-2023 Note HNO ID: [id number] Author: Oneida Schroeder APRN.[employer] SERVICES LIBRARIAN Service: ? Author Type: Nurse Practitioner Type: Progress Notes Filed: 04/07/2023 3:13 PM Note Text: Subjective Cough Associated symptoms include ear pain, headaches, sore throat, myalgias, shortness of breath and wheezing. Pertinent negatives include no chills. Karyn Umanzor is a 58 year old female who presents with 3 days of cough, sore throat, body aches, headache, sinus pain, left ear pain. Cough is productive. She does not have a fever. She denies any known sick contacts. She took a COVID test at home, it was negative. Review of Systems Constitutional: Negative for chills and fever. HENT: Positive for congestion, ear pain, sinus pain and sore throat. Respiratory: Positive for cough, sputum production, shortness of breath and wheezing. Musculoskeletal: Positive for myalgias. Neurological: Positive for headaches. BP 118/62 Pulse 66 Temp 36.8 ?C (98.2 ?F) Resp 16 Wt 92.1 kg (203 lb) LMP 03/14/2022 SpO2 98% BMI 37.13 kg/m? PAST MEDICAL HISTORY Diagnosis Date Arthritis Asthma Benign head tremor Hypothyroidism PMH - PAST MEDICAL HISTORY OF depression PMH - PAST MEDICAL HISTORY OF seasonal allergies PMH - PAST MEDICAL HISTORY OF IBS PMH - PAST MEDICAL HISTORY OF Restless leg PMH - PAST MEDICAL HISTORY OF carpal tunnel PAST SURGICAL HISTORY Procedure Laterality Date ABDOMINAL SURGERY HX COLONOSCOPY FLX DX W/COLLJ SPEC WHEN PFRMD 09/21/2010 repeat 09/2015 COLONOSCOPY FLX DX W/COLLJ SPEC WHEN PFRMD 11/24/2015 normal - 5 year follow up COLONOSCOPY FLX DX W/COLLJ SPEC WHEN PFRMD 02/02/2021 DILATION AND CURETTAGE DXAND/THER NONOBSTETRIC Dilation AND curettage LIG/TRNSXJ FLP TUBE ABDL/VAG APPR UNI/BI Tubal ligation REVISE MEDIAN N/CARPAL TUNNEL SURG Right 11/2019 SKIN BIOPSY HX ALLERGIES Doxycycline, Erythromycin, Flagyl [Metronidazole Hcl], Metamucil [Psyllium Husk], and Penicillins MEDICATIONS levonorgestrel (MIRENA) 20 mcg/24 hours (7 yrs) 52 mg IUD 1 Each by INTRAUTERINE route as directed. primidone (MYSOLINE) 250 mg tablet citalopram (CELEXA) 20 mg tablet Take 20 mg by mouth once daily. levothyroxine (SYNTHROID) 112 mcg tablet take 1 tablet by mouth once daily ON AN EMPTY STOMACH propranolol ER (INDERAL LA) 160 mg Cs24 Take 160 mg by mouth once daily. montelukast (SINGULAIR) 10 mg tablet Take 10 mg by mouth daily at bedtime. loratadine (CLARITIN) 10 mg tablet Take 1 tablet by mouth once daily. temazepam (RESTORIL) 15 mg Take one(1) tablet daily at bedtime. cefdinir (OMNICEF) 300 mg capsule Take 1 capsule by mouth two times a day for 7 days. benzonatate (TESSALON PERLE) 100 mg capsule Take 2 capsules by mouth three times a day as needed for up to 10 days. predniSONE (DELTASONE) 20 mg tablet Take 2 tablets by mouth once daily for 4 days. Take daily with food. FAMILY HISTORY Problem Relation Age of Onset Cancer Father colon Cancer Sister colon Social History Tobacco Use Smoking status: Every Day Packs/day: 1.00 Years: 25.00 Additional pack years: 0.00 Total pack years: 25.00 Types: Cigarettes Last attempt to quit: 08/2017 Years since quittin.6 Smokeless tobacco: Never Vaping Use Vaping Use: Never used Substance Use Topics Alcohol use: Yes Comment: weekly Drug use: No Objective Physical Exam Vitals and nursing note reviewed. Constitutional: Appearance: Normal appearance. HENT: Right Ear: Tympanic membrane, ear canal and external ear normal. Left Ear: Ear canal and external ear normal. A middle ear effusion is present. Tympanic membrane is injected. Nose: Nose normal. Mouth/Throat: Mouth: Mucous membranes are moist. Pharynx: Oropharynx is clear. Uvula midline. No oropharyngeal exudate or posterior oropharyngeal erythema. Cardiovascular: Rate and Rhythm: Normal rate and regular rhythm. Heart sounds: Normal heart sounds. Pulmonary: Effort: Pulmonary effort is normal. No respiratory distress. Breath sounds: Examination of the right-upper field reveals wheezing. Examination of the left-upper field reveals wheezing. Wheezing present. No rales. Musculoskeletal: Cervical back: Neck supple. Lymphadenopathy: Cervical: No cervical adenopathy. Skin: General: Skin is warm and dry. Findings: No erythema or rash. Neurological: Mental Status: She is alert. ASSESSMENT/PLAN: 1. Viral URI with cough - ICD9: 465.9, ICD10: J06.9 (primary diagnosis) - Discussed viral etiology and rationale for treatment. - Symptomatic treatment with prn analgesia - Supportive care with fluids and rest - COVID NAAT, UPPER RESPIRATORY, ROUTINE 2. Other acute nonsuppurative otitis media of left ear, recurrence not specified - ICD9: 381.00, ICD10: H65.192 - Will begin treatment with as per antibiotic as written, see orders - Supportive care with plenty of fluids, rest, and analgesia prn. - CEFDINIR 300 MG C (more content not included)... [facility] 04-07-2023 History of Presen t illness Narrative Subjective Cough Associated symptoms include ear pain, headaches, sore throat, myalgias, shortness of breath and wheezing. Pertinent negatives include no chills. Karyn Umanzor is a 58 year old female who presents with 3 days of cough, sore throat, body aches, headache, sinus pain, left ear pain. Cough is productive. She does not have a fever. She denies any known sick contacts. She took a COVID test at home, it was negative. Review of Systems Constitutional: Negative for chills and fever. HENT: Positive for congestion, ear pain, sinus pain and sore throat. Respiratory: Positive for cough, sputum production, shortness of breath and wheezing. Musculoskeletal: Positive for myalgias. Neurological: Positive for headaches. BP 118/62 Pulse 66 Temp 36.8 C (98.2 F) Resp 16 Wt 92.1 kg (203 lb) LMP 03/14/2022 SpO2 98% BMI 37.13 kg/m PAST MEDICAL HISTORY Diagnosis Date Arthritis Asthma Benign head tremor Hypothyroidism PMH - PAST MEDICAL HISTORY OF depression PMH - PAST MEDICAL HISTORY OF seasonal allergies PMH - PAST MEDICAL HISTORY OF IBS PMH - PAST MEDICAL HISTORY OF Restless leg PMH - PAST MEDICAL HISTORY OF carpal tunnel PAST SURGICAL HISTORY Procedure Laterality Date ABDOMINAL SURGERY HX COLONOSCOPY FLX DX W/COLLJ SPEC WHEN PFRMD 09/21/2010 repeat 09/2015 COLONOSCOPY FLX DX W/COLLJ SPEC WHEN PFRMD 11/24/2015 normal - 5 year follow up COLONOSCOPY FLX DX W/COLLJ SPEC WHEN PFRMD 02/02/2021 DILATION & CURETTAGE DX&/THER NONOBSTETRIC Dilation & curettage LIG/TRNSXJ FLP TUBE ABDL/VAG APPR UNI/BI Tubal ligation REVISE MEDIAN N/CARPAL TUNNEL SURG Right 11/2019 SKIN BIOPSY HX ALLERGIES Doxycycline, Erythromycin, Flagyl [Metronidazole Hcl], Metamucil [Psyllium Husk], and Penicillins MEDICATIONS levonorgestrel (MIRENA) 20 mcg/24 hours (7 yrs) 52 mg IUD 1 Each by INTRAUTERINE route as directed. primidone (MYSOLINE) 250 mg tablet citalopram (CELEXA) 20 mg tablet Take 20 mg by mouth once daily. levothyroxine (SYNTHROID) 112 mcg tablet take 1 tablet by mouth once daily ON AN EMPTY STOMACH propranolol ER (INDERAL LA) 160 mg Cs24 Take 160 mg by mouth once daily. montelukast (SINGULAIR) 10 mg tablet Take 10 mg by mouth daily at bedtime. loratadine (CLARITIN) 10 mg tablet Take 1 tablet by mouth once daily. temazepam (RESTORIL) 15 mg Take one(1) tablet daily at bedtime. cefdinir (OMNICEF) 300 mg capsule Take 1 capsule by mouth two times a day for 7 days. benzonatate (TESSALON PERLE) 100 mg capsule Take 2 capsules by mouth three times a day as needed for up to 10 days. predniSONE (DELTASONE) 20 mg tablet Take 2 tablets by mouth once daily for 4 days. Take daily with food. FAMILY HISTORY Problem Relation Age of Onset Cancer Father colon Cancer Sister colon Social History Tobacco Use Smoking status: Every Day Packs/day: 1.00 Years: 25.00 Additional pack years: 0.00 Total pack years: 25.00 Types: Cigarettes Last attempt to quit: 08/2017 Years since quittin.6 Smokeless tobacco: Never Vaping Use Vaping Use: Never used Substance Use Topics Alcohol use: Yes Comment: weekly Drug use: No Objective Physical Exam Vitals and nursing note reviewed. Constitutional: Appearance: Normal appearance. HENT: Right Ear: Tympanic membrane, ear canal and external ear normal. Left Ear: Ear canal and external ear normal. A middle ear effusion is present. Tympanic membrane is injected. Nose: Nose normal. Mouth/Throat: Mouth: Mucous membranes are moist. Pharynx: Oropharynx is clear. Uvula midline. No oropharyngeal exudate or posterior oropharyngeal erythema. Cardiovascular: Rate and Rhythm: Normal rate and regular rhythm. Heart sounds: Normal heart sounds. Pulmonary: Effort: Pulmonary effort is normal. No respiratory distress. Breath sounds: Examination of the right-upper field reveals wheezing. Examination of the left-upper field reveals wheezing. Wheezing present. No rales. Musculoskeletal: Cervical back: Neck supple. Lymphadenopathy: Cervical: No cervical adenopathy. Skin: General: Skin is warm and dry. Findings: No erythema or rash. Neurological: Mental Status: She is alert. ASSESSMENT/PLAN: 1. Viral URI with cough - ICD9: 465.9, ICD10: J06.9 (primary diagnosis) - Discussed viral etiology and rationale for treatment. - Symptomatic treatment with prn analgesia - Supportive care with fluids and rest - COVID NAAT, UPPER RESPIRATORY, ROUTINE 2. Other acute nonsuppurative otitis media of left ear, recurrence not specified - ICD9: 381.00, ICD10: H65.192 - Will begin treatment with as per antibiotic as written, see orders - Supportive care with plenty of fluids, rest, and analgesia prn. - CEFDINIR 300 MG CAPSULE 3. Sinobronchitis - ICD9: 473.9, 490, ICD10: J32.9, J40 - BENZONATATE 100 MG CAPSULE - PREDNISONE 20 MG TABLET - Follow-up with your PCP in 3-5 days if symptoms have not improved or sooner if symptoms worsen - Discussed red flags and need for immediate medical evaluation if any occur. - Discussed supportive care treatment with fluids, rest and analgesia. - Discussed expected course of illness Oneida Schroeder APRN.INTERLIBRARY LOAN SERVICES LIBRARIAN documented in this encounter [facility] 04-07-2023 Instructions Oneida Schroeder APRN.INTERLIBRARY LOAN SERVICES LIBRARIAN - 04/07/2023 3:02 PM EST ASSESSMENT/PLAN: 1. Viral URI with cough - ICD9: 465.9, ICD10: J06.9 (primary diagnosis) - Discussed viral etiology and rationale for treatment. - Symptomatic treatment with prn analgesia - Supportive care with fluids and rest - COVID NAAT, UPPER RESPIRATORY, ROUTINE 2. Other acute nonsuppurative otitis media of left ear, recurrence not specified - ICD9: 381.00, ICD10: H65.192 - Will begin treatment with as per antibiotic as written, see orders - Supportive care with plenty of fluids, rest, and analgesia prn. - CEFDINIR 300 MG CAPSULE 3. Sinobronchitis - ICD9: 473.9, 490, ICD10: J32.9, J40 - BENZONATATE 100 MG CAPSULE - PREDNISONE 20 MG TABLET - Follow-up with your PCP in 3-5 days if symptoms have not improved or sooner if symptoms worsen - Discussed red flags and need for immediate medical evaluation if any occur. - Discussed supportive care treatment with fluids, rest and analgesia. - Discussed expected course of illness Oneida Schroeder APRN.INTERLIBRARY LOAN SERVICES LIBRARIAN documented in this encounter [facility] 04-05-2022 History of Presen t illness Narrative Karyn is a 57 year old who presents for an annual gynecologic exam without complaints. Postmenopausal: No. Menstrual cycle every 25-30 days Flow 3-4 days light spotting HRT use: Mirena. Last Pap: 04/19/2018 normal HPV: 04/16/2018 negative History of abnormal pap: No Last mammogram: 2021 normal @ [facility] History of abnormal mammogram: No Sexually active: Yes Pain with intercourse: No Postcoital bleeding: No Vaginal dryness: No OB History T2 L2 SAB0 IAB0 Ectopic0 Multiple0 Live Births0 [employer] History LMP: 03/14/2022, Having periods Age at Menarche: Age at First : Age at Menopause: [employer] History Comments: Sexual Activity: Yes; Male Contraception: Tubal Ligation PAST MEDICAL HISTORY Diagnosis Date Arthritis Asthma Benign head tremor Hypothyroidism PMH - PAST MEDICAL HISTORY OF depression PMH - PAST MEDICAL HISTORY OF seasonal allergies PMH - PAST MEDICAL HISTORY OF IBS PMH - PAST MEDICAL HISTORY OF Restless leg PMH - PAST MEDICAL HISTORY OF carpal tunnel PAST SURGICAL HISTORY Procedure Laterality Date ABDOMINAL SURGERY HX COLONOSCOPY FLX DX W/COLLJ SPEC WHEN PFRMD 09/21/2010 repeat 09/2015 COLONOSCOPY FLX DX W/COLLJ SPEC WHEN PFRMD 11/24/2015 normal - 5 year follow up COLONOSCOPY FLX DX W/COLLJ SPEC WHEN PFRMD 02/02/2021 DILATION & CURETTAGE DX&/THER NONOBSTETRIC Dilation & curettage LIG/TRNSXJ FLP TUBE ABDL/VAG APPR UNI/BI Tubal ligation REVISE MEDIAN N/CARPAL TUNNEL SURG Right 11/2019 SKIN BIOPSY HX FAMILY HISTORY Problem Relation Age of Onset Cancer Father colon Cancer Sister colon SOCIAL HISTORY Social History Tobacco Use Smoking status: Every Day Packs/day: 1.00 Years: 25.00 Pack years: 25.00 Types: Cigarettes Last attempt to quit: 08/2017 Years since quittin.6 Smokeless tobacco: Never Vaping Use Vaping Use: Never used Substance Use Topics Alcohol use: Yes Comment: weekly Drug use: No REVIEW OF SYSTEMS Abdomen: No abdominal pain, nausea, vomiting, diarrhea, or constipation. No bloating, early satiety, indigestion, or increased flatulence. Bladder: No dysuria, gross hematuria, urinary frequency, urinary urgency, stress incontinence Breast: No breast lumps, nipple d/c, overlying skin changes, redness or skin retraction Allergies and current medication updated:Yes EXAM: Ht 5' 2 (1.58m) Wt 200 lb 12.8 oz (91.1kg) LMP 03/14/2022 BMI 36.72 kg/(m^2). GENERAL: pleasant, female in no apparent distress HEENT: Normocephalic, atraumatic, and no lesions NECK: Supple, full range of motion, no adenopathy, and thyroid normal DERMATOLOGY: Normal, without lesions, non-icteric, and non-hirsute BREAST: soft, non-tender, symmetric, no dominant mass, normal nipple-areolar complex, no lymphadenopathy, and no nipple discharge CHEST: Normal inspiratory effort ABDOMEN: soft, non-tender, and no masses PELVIC: external genitalia normal, normal Bartholin's glands, urethra, [place]'s glands, no vulvar lesions, no cervical lesions, physiologic discharge present, normal appearing perineal body and perianal region, IUD string seen BIMANUAL: uterus normal size, shape and consistency, no adnexal masses, and non-tender RECTOVAGINAL: deferred. NEURO: alert and oriented x3,exam grossly non-focal EXTREMITIES: normal ASSESSMENT/PLAN: 1) Health maintenance: Pap/HPV up to date. Mammogram up to date Nutrition, exercise and routine health maintenance exams reviewed. Calcium/Vitamin D supplementation information provided. Colon cancer screening: up to date with screening 2) Follow up one year or sooner as needed Liza Amin APRN.WEI documented in this encounter [facility] 08-26-2021 Miscellaneous Notes Patient notified.Shasta Orellana LPN No significant bacterial infection noted on urine culture. Continue antibiotics as prescribed. Follow-up with PCP for reevaluation. Wes Loyola APRN.WEI documented in this encounter [facility] 08-24-2021 History of Presen t illness Narrative This note was created using Whats[employer]. Subjective Karyn Umanzor is a 56 year old female. HPI Patient presents with urinary frequency and urgency with lower back pain for 2 days. She has had pelvic pressure as well. No fever. No vd. Some nausea yesterday. No vaginal complaints. Review of Systems Constitutional: Negative. Genitourinary: Positive for frequency and urgency. Negative for dysuria. All other systems reviewed and are negative. PAST MEDICAL HISTORY Diagnosis Date Arthritis Asthma Benign head tremor Hypothyroidism PMH - PAST MEDICAL HISTORY OF depression PMH - PAST MEDICAL HISTORY OF seasonal allergies PMH - PAST MEDICAL HISTORY OF IBS PMH - PAST MEDICAL HISTORY OF Restless leg PMH - PAST MEDICAL HISTORY OF carpal tunnel Current Outpatient Medications Medication Sig Dispense Refill levonorgestrel (MIRENA) 20 mcg/24 hours (7 yrs) 52 mg IUD 1 Each by INTRAUTERINE route as directed. 1 Each 0 primidone (MYSOLINE) 250 mg tablet citalopram (CELEXA) 20 mg tablet Take 20 mg by mouth once daily. levothyroxine (SYNTHROID) 112 mcg tablet take 1 tablet by mouth once daily ON AN EMPTY STOMACH propranolol ER (INDERAL LA) 160 mg Cs24 Take 160 mg by mouth once daily. HERBAL DRUGS ORAL Take by mouth. Amberen Herbal 2 capsules in the morning montelukast (SINGULAIR) 10 mg tablet Take 10 mg by mouth daily at bedtime. loratadine (CLARITIN) 10 mg ORAL tablet Take 1 tablet by mouth once daily. 30 tablet 11 temazepam (RESTORIL) 15 mg ORAL Cap Take one(1) tablet daily at bedtime. nitrofurantoin monohydrate and macrocrystal (MACROBID) 100 mg capsule Take 1 capsule by mouth twice daily with meals for 5 days. 10 capsule 0 miSOPROStol (CYTOTEC) 200 mcg tablet Use 2 tablets vaginally as directed. The night before the procedure and the morning of the procedure. (Patient not taking: Reported on 04/20/2021 ) 4 tablet 0 No current facility-administered medications for this visit. PAST SURGICAL HISTORY Procedure Laterality Date ABDOMINAL SURGERY HX COLONOSCOPY FLX DX W/COLLJ SPEC WHEN PFRMD 09/21/2010 repeat 09/2015 COLONOSCOPY FLX DX W/COLLJ SPEC WHEN PFRMD 11/24/2015 normal - 5 year follow up COLONOSCOPY FLX DX W/COLLJ SPEC WHEN PFRMD 02/02/2021 DILATION & CURETTAGE DX&/THER NONOBSTETRIC Dilation & curettage LIG/TRNSXJ FLP TUBE ABDL/VAG APPR UNI/BI Tubal ligation REVISE MEDIAN N/CARPAL TUNNEL SURG Right 11/2019 SKIN BIOPSY HX FAMILY HISTORY Problem Relation Age of Onset Cancer Father colon Cancer Sister colon Social History Tobacco Use Smoking status: Former Smoker Packs/day: 1.00 Years: 25.00 Pack years: 25.00 Types: Cigarettes Quit date: 08/2017 Years since quittin.0 Smokeless tobacco: Never Used Vaping Use Vaping Use: Never used Substance Use Topics Alcohol use: Yes Comment: weekly Drug use: No Objective BP 108/64 Pulse 88 Temp 36.6 C (97.8 F) Resp 18 Wt 94.3 kg (208 lb) LMP 08/16/2021 SpO2 97% BMI 38.04 kg/m Physical Exam Vitals reviewed. Constitutional: Appearance: Normal appearance. HENT: Head: Normocephalic and atraumatic. Cardiovascular: Rate and Rhythm: Normal rate and regular rhythm. Heart sounds: Normal heart sounds. Pulmonary: Effort: Pulmonary effort is normal. Breath sounds: Normal breath sounds. Abdominal: General: Abdomen is flat. Bowel sounds are normal. Palpations: Abdomen is soft. Tenderness: There is no abdominal tenderness. There is no right CVA tenderness, left CVA tenderness, guarding or rebound. Skin: General: Skin is warm and dry. Neurological: Mental Status: She is alert. Assessment and Plan ASSESSMENT/PLAN: 1. Acute cystitis with hematuria - ICD9: 595.0, ICD10: N30.01 patient took azo, dip not correct. Will start macrobid and send for culture. - NITROFURANTOIN MONOHYDRATE & MACROCRYSTAL 100 MG ORAL CAP - URINE CULTURE Garret Sandoval PA-C documented in this encounter [facility] Diagnosis Encounter for gynecological examination (general) (routine) without abnormal findings- Primary Vaginal discharge Leukorrhea, not specified as infective [facility] Diagnosis Viral URI with cough- Primary Acute upper respiratory infections of unspecified site Other acute nonsuppurative otitis media of left ear, recurrence not specified Sinobronchitis Unspecified sinusitis (chronic) [facility] Diagnosis Encounter for gynecological examination (general) (routine) without abnormal findings- Primary Encounter for screening for human papillomavirus (HPV) Special screening examination for human papillomavirus (HPV) Pap smear for cervical cancer screening Screening for malignant neoplasm of the cervix Excessive bleeding in premenopausal period Premenopausal menorrhagia Pelvic cramping Unspecified symptom associated with female genital organs Encounter for screening for osteoporosis Special screening for osteoporosis Female stress incontinence [facility] Diagnosis Encounter for routine checking of intrauterine contraceptive device (IUD)- Primary Pelvic cramping Unspecified symptom associated with female genital organs [facility] Diagnosis Encounter for routine checking of intrauterine contraceptive device (IUD) Pelvic cramping Unspecified symptom associated with female genital organs [facility] Diagnosis Abnormal uterine bleeding (AUB)- Primary History of abnormal uterine bleeding documented in this encounter [facility] for referral (narrative)* Outpatient Procedure (Routine) - Closed Specialty Diagnoses / Procedures Referred By Priyank arriola Referred To Contact [facility] Diagnoses Encounter for gynecological examination (general) (routine) without abnormal findings Excessive bleeding in premenopausal period Procedures ENDOMETRIAL BIOPSY ENDOMETRIAL BX W/WO ENDOCERVIX BX W/O DILAT SPX Catherine Carr APRN.CNP [address] [place] [address] [facility] [address] [place] [address] Referral ID Status Reason Start Date Expiration Date V isits Requested Visits Authorized [id number] Closed Auto-Generate d Referral 07/19/2023 10/17/2023 1 1 [facility] for referral (narrative)* Diagnostic Procedure Only (Routine) - Closed Specialty Diagnoses / Procedures Referred By Priyank arriola Referred To Contact [facility] Diagnoses Encounter for routine checking of intrauterine contraceptive device (IUD) Pelvic cramping Procedures US FEMALE PELVIS TRANSVAG US TRANSVAGINAL Catherine Carr APRN.CNP [address] [place] [address] [place] [address] Referral ID Status Reason Start Date Expiration Date V isits Requested Visits Authorized [id number] Closed Auto-Generate d Referral 07/20/2023 08/18/[address] 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 Advance Directive(s) 02/02/2021 11:12 AM Advance Directive(s) 11/24/2015 12:34 PM Summary Purpose Family History No Family History Records Found Additional Source Comments Source Comments (unrecognize d section and content) In the event this informatio n is protected by the Federal Confidentiality of Alcohol and Drug Abuse Patient Records regulations: The Federal rules restrict any use of the information to criminally investigate or prosecute any alcohol or drug abuse patient.[facility] the event this information is protected by the Federal Confidentiality of Alcohol and Drug Abuse Patient Records regulations: The Federal rules restrict any use of the information to criminally investigate or prosecute any alcohol or drug abuse patient.[facility] the event this information is protected by the Federal Confidentiality of Alcohol and Drug Abuse Patient Records regulations: The Federal rules restrict any use of the information to criminally investigate or prosecute any alcohol or drug abuse patient.[facility] the event this information is protected by the Federal Confidentiality of Alcohol and Drug Abuse Patient Records regulations: The Federal rules restrict any use of the information to criminally investigate or prosecute any alcohol or drug abuse patient.[facility] the event this information is protected by the Federal Confidentiality of Alcohol and Drug Abuse Patient Records regulations: The Federal rules restrict any use of the information to criminally investigate or prosecute any alcohol or drug abuse patient.[facility] the event this information is protected by the Federal Confidentiality of Alcohol and Drug Abuse Patient Records regulations: The Federal rules restrict any use of the information to criminally investigate or prosecute any alcohol or drug abuse patient.[facility] the event this information is protected by the Federal Confidentiality of Alcohol and Drug Abuse Patient Records regulations: The Federal rules restrict any use of the information to criminally investigate or prosecute any alcohol or drug abuse patient.[facility] the event this information is protected by the Federal Confidentiality of Alcohol and Drug Abuse Patient Records regulations: The Federal rules restrict any use of the information to criminally investigate or prosecute any alcohol or drug abuse patient.[facility] Reason for Visit (unrecogniz ed section and content) Reason Comments Results Reason Comments Yearly Exam Specialty Diagnoses / Procedures Referred By Contac t Referred To Contact Gynecology / TONGUE AND GROOVE MACHINE OPERATOR Diagnoses Annual Procedures WELLNESS EXAMS EST 40-64 YRS EST WHI ANNUAL PATIENT Self Liza Amin APRN.CNP [address] [place] [address] Referral ID Status Reason Start Date Expiration Date Visits Re quested Visits Authorized [id number] Closed 03/28/2022 05/14/2022 1 1 Reason Comments Cough Sore throat and coug henry up thick yellow mucus x3 days. Reason Comments Well Woman Specialty Diagnoses / Procedures Referred By Contac t Referred To Contact Ld Teacher / TONGUE AND GROOVE MACHINE OPERATOR Diagnoses Encounter for gynecological examination (general) (routine) without abnormal findings annual Procedures OFFICE/OUTPATIENT EST PT MAY NOT REQ PHYS/QHP OFFICE/OUTPATIENT ESTABLISHED HIGH MDM 40 MIN EST WHI ANNUAL PATIENT Self Catherine Carr APRN.CNP [address] [place] [address] Referral ID Status Reason Start Date Expiration Date V isits Requested Visits Authorized [id number] Authorized 07/19/2023 05/14/2024 99 99 Reason Comments Results Reason Comments Radiology US Specialty Diagnoses / Procedures Referred By Contac t Referred To Contact [facility] Diagnoses Encounter for routine checking of intrauterine contraceptive device (IUD) Pelvic cramping Procedures US FEMALE PELVIS TRANSVAG US TRANSVAGINAL Catherine Carr APRN.INTERLIBRARY LOAN SERVICES LIBRARIAN [address] [place] [address] [place] [address] Referral ID Status Reason Start Date Expiration Date V isits Requested Visits Authorized [id number] Closed Auto-Generate d Referral 07/20/2023 08/18/2024 1 1 Reason Comments Endometrial Biopsy Specialty Diagnoses / Procedures Referred By Contac t Referred To Contact Ld Teacher / TONGUE AND GROOVE MACHINE OPERATOR Diagnoses Encounter for gynecological examination (general) (routine) without abnormal findings EMB Procedures OFFICE/OUTPATIENT ESTABLISHED HIGH MDM 40 MIN OFFICE/OUTPATIENT EST PT MAY NOT REQ PHYS/QHP EST WHI PATIENT Self Catherine Carr APRN.CNP [address] [place] [address] Referral ID Status Reason Start Date Expiration Date V isits Requested Visits Authorized [id number] Authorized 07/21/2023 05/14/2024 99 99 Care Teams (unrecognized sec tion and content) Brush Polisher Relationship Specialty Start Date End Date Home Carter MD PCP - General Family Practice 10/28/15 Brush Polisher Relationship Specialty Start Date End Date Home Carter MD PCP - General Family Medicine 10/28/15 Brush Polisher Relationship Specialty Start Date End Date Taryn Kim MD [address] [place], [place] [id number] PCP - General Family Medicine 04/07/23 Brush Polisher Relationship Specialty Start Date End Date Taryn Kim MD [address] [place] [address] PCP - General Family Medicine 04/07/23 Brush Polisher Relationship Specialty Start Date End Date Taryn Kim MD [address] [place] [address] PCP - General Family Medicine 04/07/23 Brush Polisher Relationship Specialty Start Date End Date Taryn Kim MD [address] [place] [address] PCP - General Family Medicine 04/07/23 Brush Polisher Relationship Specialty Start Date End Date Taryn Kim MD [address] [place] [address] PCP - General Family Medicine 04/07/23 INFORMATION SOURCE (unrecogn ized section and content) FOR RECORDS PERTAINING TO PATIENTS WHO ARE OR HAVE BEEN ENROLLED IN A CHEMICAL DEPENDENCY/SUBSTANCEABUSE PROGRAM, SOME INFORMATION MAY BE OMITTED. This clinical summary was aggregated from multiple sources. Caution should be exercised in using it in the provision of clinical care. This summary normalizes information from multiple sources, and as a consequence, information in this document may materially change the coding, format and clinical context of patient data. In addition, data may be omitted in some cases. CLINICAL DECISIONS SHOULD BE BASED ON THE PRIMARY CLINICAL RECORDS. [employer] provides no warranty or guarantee of the accuracy or completeness of information in this document.
== END | disposition home or self-care (01) ==
LOC: OPBI 07:45
PROVIDERS: PCP Family Medicine; Referring Provider Nurse Practitioner Women's Health; Visit Provider Nurse Practitioner Women's Health
DX: Z12.31 Encounter for screening mammogram for malignant neoplasm of breast (principal)
CPT/HCPCS: 77063; 77067

== ENCOUNTER → 2023-08-29 | Outpatient (CLI) | payer OTHER, SELFPAY ==
[2023-08-29 11:59] LABS: Absolute Lymphocyte Count 2.11 X10^3/uL (0.83-4.51); Absolute Neutrophil Count 3.2 X10^3/uL (2.0-7.7); Basophil# 0.07 X10^3/uL; Basophil% 1.1 % (0-1); Eosinophil# 0.16 X10^3/uL; Eosinophils% 2.6 % (0-5); Hematocrit 41.3 % (37-47); Hemoglobin 13.6 g/dL (12.0-15.0); Lymphocyte # 2.11 X10^3/ul (0.83-4.51); Lymphocyte % 34.2 % (19-41); Mean Corp Hgb Conc 32.9 g/dL (32-36); Mean Corpuscular Hgb 32.5 pg (27.0-32.0); Mean Corpuscular Volume 98.6 fL (81-99); Monocyte# 0.62 X10^3/uL; NRBC Flagged by Analyzer 0 % (0-5); Neutrophil # 3.19 X10^3/uL (2.7-7.7); Neutrophil % 51.8 % (47-70); Platelet Count 281 K/mm3 (150-450); RBC Distribution Width CV 12.3 % (11.6-14.6); RBC Distribution Width SD 44.5 fl (35.1-43.9); Red Blood Count 4.19 M/mm3 (4.2-5.4); White Blood Count 6.2 K/mm3 (4.4-11.0)
[2023-09-03 08:08] LABS: Alternaria tenuis <0.10 kU/L (Class 0); Ash, White 0.17 kU/L (Class 0/I); Aspergillus fumigatus <0.10 kU/L (Class 0); Bermuda Grass 0.15 kU/L (Class 0/I); Birch 0.12 kU/L (Class 0/I); Black Walnut 0.15 kU/L (Class 0/I); Cat Hair / Dander,Stand <0.10 kU/L (Class 0); Cedar, Mountain 0.16 kU/L (Class 0/I); Cladosporium herbarum <0.10 kU/L (Class 0); Cockroach, American 0.41 kU/L (Class I); Cottonwood 0.19 kU/L (Class 0/I); D farinae Mite 0.24 kU/L (Class 0/I); D pteronyssinus 0.19 kU/L (Class 0/I); Dog Epithelia <0.10 kU/L (Class 0); Elm, American White 0.14 kU/L (Class 0/I); Immunoglobulin E 55 IU/mL (6-495); Maple/Box Elder 0.16 kU/L (Class 0/I); Mouse Urine <0.10 kU/L (Class 0); Mulberry, White 0.11 kU/L (Class 0/I); Oak, White 0.12 kU/L (Class 0/I); Pecan 0.13 kU/L (Class 0/I); Penicillium Notatum <0.10 kU/L (Class 0); Pigweed, Rough 0.12 kU/L (Class 0/I); Ragweed, Short/Common 0.17 kU/L (Class 0/I); Russian Thistle 0.13 kU/L (Class 0/I); Sheep Sorrel 0.12 kU/L (Class 0/I); Sycamore, American 0.14 kU/L (Class 0/I); Timothy Grass 0.13 kU/L (Class 0/I)
[2023-09-05 20:08] LABS: Aspirgillus flavus Negative (Neg:<1:1); Aspirgillus fumigatus Negative (Neg:<1:1); Aspirgillus niger Negative (Neg:<1:1); Immunoglobulin E 51 IU/mL (6-495)
== END | disposition home or self-care (01) ==
LOC: LAB 11:29
PROVIDERS: PCP Family Medicine; Referring Provider Internal Medicine Critical Care Medicine; Visit Provider Internal Medicine Critical Care Medicine
DX: F17.211 Nicotine dependence, cigarettes, in remission (principal); J45.909 Unspecified asthma, uncomplicated
CPT/HCPCS: 36415; 82785; 85025; 86003; 86606

== ENCOUNTER → 2023-09-01 | Outpatient (CLI) | payer OTHER, SELFPAY | END | disposition home or self-care (01) | LOC: PSN 08:11 | PROVIDERS: PCP Family Medicine; Referring Provider Internal Medicine Critical Care Medicine; Visit Provider Internal Medicine Critical Care Medicine | DX: J45.909 Unspecified asthma, uncomplicated (principal); F17.211 Nicotine dependence, cigarettes, in remission | CPT/HCPCS: 94060; 94726; 94729 ==

== ENCOUNTER → 2023-09-05 | Outpatient (CLI) | payer OTHER, SELFPAY ==
[2023-09-05 08:15] VITALS: PULSE 100; PULSE 101; PULSE 105; PULSE 69; PULSE 82; PULSE 96; PULSE 98; O2SAT 95; O2SAT 98; O2SAT 99
--- NOTE | 2023-09-06 10:39 | PCM.PSN.6M ---
PSN 6 Minute Walk Test 6 Minute Walk Test 6 Minute Walk Test: 6 Minute Walk Test PSN:6-Minute Walk Test Start: 09/05/23 08:40 Freq: Status: Active Protocol: [id number] Document 09/05/23 08:15 EW (Rec: 09/05/23 08:47 EW Desktop) 6 Minute Walk Test Pre-test Oxygen Delivery Method Room Air Pulse Ox 99 Pulse Rate (60-100) 69 Dyspnea Elgin Scale (0-10) 1 Exertion Elgin Scale (6-20) 8 1st minute Oxygen Delivery Method Room Air Pulse Ox 95 Pulse Rate (60-100) 96 2nd minute Oxygen Delivery Method Room Air Pulse Ox 98 Pulse Rate (60-100) 98 3rd minute Oxygen Delivery Method Room Air Pulse Ox 98 Pulse Rate (60-100) 100 4th minute Oxygen Delivery Method Room Air Pulse Ox 98 Pulse Rate (60-100) 101 H 5th minute Oxygen Delivery Method Room Air Pulse Ox 98 Pulse Rate (60-100) 101 H 6th minute Oxygen Delivery Method Room Air Pulse Ox 98 Pulse Rate (60-100) 105 H Post-test Oxygen Delivery Method Room Air Pulse Ox 99 Pulse Rate (60-100) 82 Dyspnea Elgin Scale (0-10) 2 Exertion Elgin Scale (6-20) 11 Full Laps Walked 19 Partial Lap, Number of Tiles Walked 0 Total Distance Walked (ft) 1121 Interpretation Interpretation: The patient ambulated 1121 feet over the course of 6 minutes beginning on room air without assistive devices. Pretesting oxygen saturation was noted to be 99% on room air. With ambulation, the yosvany oxygen saturation was 95%. There was no significant exertional oxygen desaturation. Recommendations Recommendations: There is no indication for the use of supplemental oxygen at this time.
== END | disposition home or self-care (01) ==
LOC: PSN 08:05
PROVIDERS: PCP Family Medicine; Referring Provider Internal Medicine Critical Care Medicine; Visit Provider Internal Medicine Critical Care Medicine
DX: F17.211 Nicotine dependence, cigarettes, in remission (principal); J45.909 Unspecified asthma, uncomplicated
CPT/HCPCS: 94618

== ENCOUNTER → 2023-09-12 | Outpatient (CLI) | payer OTHER, SELFPAY ==
[2023-09-12 13:26] LABS: Thyroid Stim Hormone (TSH) 2.54 uIU/mL (0.358-3.74)
== END | disposition home or self-care (01) ==
LOC: LAB 12:11
PROVIDERS: PCP Family Medicine; Referring Provider Family Medicine; Visit Provider Family Medicine
DX: E03.9 Hypothyroidism, unspecified (principal)
CPT/HCPCS: 36415; 84443

== ENCOUNTER → 2023-09-18 | Outpatient (CLI) | payer OTHER, SELFPAY ==
--- NOTE | 2023-09-18 17:46 | CT_ITS ---
STUDY: LOW DOSE CT LUNG CANCER SCREENING REASON FOR EXAM: Female, 58 years old. h/o tobacco dependency RADIATION DOSAGE (If Supplied By Facility): CTDIvol = ( 4.02 ) mGy, DLP = ( 130.39 ) mGycm TECHNIQUE: No contrast was administered. Low dose technique was utilized (average mAS-38 and kVp 120). 1.25 mm axial source images with a slice interval of 1.25-mm were reconstructed in lung windows. 2.5 mm axial source images with a slice interval of 2.5-mm were reconstructed in lung windows. 5.0 mm axial source images with a slice interval of 5.0-mm were reconstructed in soft tissue windows. COMPARISON: None. Emphysema: Mild emphysema. No noncalcified nodule or mass. Endobronchial lesion: None Aorta: No thoracic aortic aneurysm. CORONARY ARTERIES: Coronary artery calcification is not seen. Heart: No cardiomegaly. Pulmonary artery: Normal Mediastinal nodes: Enlarged pretracheal lymph node measuring 1.2 x 1.5 cm. Other chest and abdominal findings: None CT/Low Dose CT Lung Screening IMPRESSION: Lung-RADS category 1 - Continue annual screening with LDCT in 12 months. IMPORTANT NOTES FOR USE: ACR Lung-RADS Version 1.1 Assessment Categories Release Date: 2018 Category: Coded 0-4 bases on nodule(s) with highest degree of suspicion. Negative screen is defined as categories 1 and 2; a positive screen is defined as categories 3 and 4. Category 3 and 4A nodules that are unchanged on interval CT should be coded as category 2, and individuals returned to screening in 12 months. Category 4X: Category 3 or 4 nodules with additional imaging findings that increase the suspicion of lung cancer, such as spiculation, GGN that doubles in size in 1 year, enlarged lymph notes, etc. Category Modifiers: S (significant finding unrelated to lung cancer) Electronically Signed: Madhu Iyer MD at 23:44 EDT ,
== END | disposition home or self-care (01) ==
LOC: CT 17:45
PROVIDERS: PCP Family Medicine; Visit Provider Internal Medicine Critical Care Medicine
DX: Z12.2 Encounter for screening for malignant neoplasm of respiratory organs (principal); F17.211 Nicotine dependence, cigarettes, in remission; J45.909 Unspecified asthma, uncomplicated
CPT/HCPCS: 71271

== ENCOUNTER → 2024-04-03 | Outpatient (CLI) | payer OTHER, SELFPAY ==
[2024-04-03 08:45] LABS: Absolute Lymphocyte Count 1.87 X10^3/uL (0.83-4.51); Absolute Neutrophil Count 4.1 X10^3/uL (2.0-7.7); Basophil# 0.07 X10^3/uL; Eosinophil# 0.11 X10^3/uL; Eosinophils% 1.6 % (0-5); Hematocrit 42.5 % (37-47); Hemoglobin 14.1 g/dL (12.0-15.0); Lymphocyte # 1.87 X10^3/ul (0.83-4.51); Lymphocyte % 27.2 % (19-41); Mean Corp Hgb Conc 33.2 g/dL (32-36); Mean Corpuscular Hgb 33.3 pg (27.0-32.0); Mean Corpuscular Volume 100.5 fL (81-99); Mean Platelet Vol. 10.2 fl (6.2-12.0); Monocyte# 0.73 X10^3/uL; Monocyte% 10.6 % (0-10); NRBC Flagged by Analyzer 0 % (0-5); Neutrophil # 4.06 X10^3/uL (2.7-7.7); Platelet Count 273 K/mm3 (150-450); RBC Distribution Width CV 12.7 % (11.6-14.6); RBC Distribution Width SD 46.8 fl (35.1-43.9); Red Blood Count 4.23 M/mm3 (4.2-5.4); White Blood Count 6.9 K/mm3 (4.4-11.0)
[2024-04-03 09:49] LABS: ALB/GLOB Ratio 1.2 RATIO (0.9-2.4); AST(SGOT) 14 U/L (15-37); Alanine Aminotransfer ALT/SGPT 26 U/L (13-56); Albumin, Serum 3.6 g/dL (3.2-5.0); Alkaline Phosphatase 79 U/L (45-117); Anion Gap 6 (5-15); BUN 17 mg/dL (7-18); BUN/Creat Ratio 24.6 RATIO (10-20); Chloride 108 mmol/L (98-107); Cholesterol 233 mg/dL (200); Creatinine, Serum 0.69 mg/dL (0.55-1.02); EST Glomerular Filtration Rate 93 mL/min (>60); Est Glom Filt Rate - Afr Amer 113 mL/min (>60); Globulin 3.1 g/dL (2.2-4.2); Glucose 108 mg/dL (74-106); High Density Lipoprotein 76 mg/dL; Potassium 4.2 mmol/L (3.5-5.1); Protein, Total 6.7 g/dL (6.4-8.2); Sodium Level 140 mmol/L (136-145); T4 Free Direct 0.92 ng/dL (0.76-1.46); Triglycerides 93 mg/dL; Very Low Density Lipoprotein 19 mg/dL (5-40)
[2024-04-03 11:47] LABS: Hemoglobin A1c 5.8 % (3.8-5.6)
== END | disposition home or self-care (01) ==
LOC: LAB 07:53
PROVIDERS: PCP Family Medicine; Referring Provider Family Medicine; Visit Provider Family Medicine
DX: Z00.00 Encounter for general adult medical examination without abnormal findings (principal); E03.9 Hypothyroidism, unspecified; R73.01 Impaired fasting glucose
CPT/HCPCS: 36415; 80053; 80061; 83036; 84439; 84443; 85025

== ENCOUNTER → 2024-11-06 | Outpatient (CLI) | payer BC, SELFPAY ==
--- NOTE | 2024-11-06 10:44 | CT_ITS ---
PROCEDURE: LOW DOSE CT LUNG SCREENING 11/06/2024 REASON FOR EXAM: SMOKER QUIT 06/2023 TECHNIQUE: LOW DOSE CT LUNG SCREENING Coronal and Sagittal reconstruction series were provided. One or more dose reduction techniques were used (e.g., Automated exposure control, adjustment of the mA and/or kV according to patient size, use of iterative reconstruction technique). REFERENCE LINK: [employer] Lung-RADS RADIATION DOSE SUMMARY: CTDlvol: 4.02 mGy DLP: 153.0 mGycm COMPARISON: Prior study dated September 18, 2023. FINDINGS: PULMONARY NODULES: (Only nodules >3mm are reported) Nodules described below are on series 1 unless otherwise specified. Pulmonary Nodules: None Hardware:None Lymph Nodes:Stable 1.2 cm 1.5 cm pretracheal lymph node. Heart and Vasculature:The heart is not enlarged. Coronary Artery Calcifications: Absent Lungs and Airways: Mild emphysematous changes are present. Pleura:Unremarkable Upper Abdomen:Unremarkable Bones:Degenerative changes of the thoracic spine. CT/Low Dose CT Lung Screening IMPRESSION: Stable examination. Coronary artery calcification (CAC) is is absent Lung-RADS Category: 2 BENIGN (BASED ON IMAGING FEATURES OR INDOLENT BEHAVIOR). RECOMMEND 12-MONTH SCREENING LDCT. Other Significant Findings: Reading Location: [facility]
== END | disposition home or self-care (01) ==
LOC: CT 10:43
PROVIDERS: PCP Family Medicine; Referring Provider Nurse Practitioner Acute Care; Visit Provider Nurse Practitioner Acute Care
DX: Z12.2 Encounter for screening for malignant neoplasm of respiratory organs (principal); F17.211 Nicotine dependence, cigarettes, in remission
CPT/HCPCS: 71271

== ENCOUNTER → 2025-01-03 | Outpatient (CLI) | payer OTHER, SELFPAY ==
--- NOTE | 2025-01-03 13:34 | RAD_ITS ---
PROCEDURE: CHEST PA AND LATERAL 01/03/2025 REASON FOR EXAM: RULE OUT PNEUMONIA, SOB TECHNIQUE: CHEST PA AND LATERAL COMPARISON: AP chest of 06/08/2023 RAD/Chest PA and Lateral IMPRESSION: Lungs appear clear throughout. No pleural effusion or pneumothorax is evident. The cardiomediastinal silhouette is within the normal range. Mild to moderate degenerative changes of the visualized spine are noted. No acute osseous process is seen. Reading Location: [place] [id number]
== END | disposition home or self-care (01) ==
LOC: MTRAD 13:32
PROVIDERS: PCP Family Medicine; Referring Provider Nurse Practitioner Family; Visit Provider Nurse Practitioner Family
DX: R05.9 Cough, unspecified (principal); R06.2 Wheezing
CPT/HCPCS: 71046

== ENCOUNTER → 2025-04-02 | Outpatient (CLI) | payer OTHER, SELFPAY ==
--- OUTSIDE RECORDS SUMMARY | 2025-04-02 09:34 | XMS RPT_ITS | CCD ---
Author Organization [facility] CliniSymn Care Team Providers Care Quality Control Lab Tech Name Role Phone Raul BURGESS, Home [place] Primary Care Provider [phone] Taryn Kim MD Primary Care Provider Dr. Taryn Kim Primary Care Provider Dr. Taryn Kim Referring Provider Dr. Ky Asencio Attending Provider Dr. Ky Asencio Referring Provider Dr. Ky Asencio Other Provider Taryn Kim MD Primary Care Provider Taryn Kim MD Primary Care Provider Dr. Taryn Kim MD Primary Care Provider Adalberto TAXI SERVICER[place] Attending Provider Adalberto TAXI SERVICER[place] Referring Provider Dr. Taryn Kim MD Referring Provider Sola TAXI SERVICER-CSil Attending Provider Adalberto TAXI SERVICER, [place] Attending Unavailable Adalberto TAXI SERVICER[place] Referring Unavailable Taryn Kim Primary Care Unavailable Taryn Kim Primary Care Unavailable Taryn Kim Attending Unavailable Taryn Kim Referring Unavailable Taryn Kim Primary Care Unavailable Tiny Burleson Attending Unavailable Tiny Burleson Referring Unavailable Taryn Kim Primary Care Unavailable Sil Selby Attending Unavailable Taryn Kim Referring Unavailable [place] Glover NP Attending Unavailable Miedel, Taryn Primary Care Unavailable Miedel, Taryn Referring Unavailable Tiny Douglas Attending Provider [phone] Tiny Douglas Referring Provider CHRISTOPHER MILLER Referring Unavailable MIEDEL, TARYN E Primary Care Unavailable CHRISTOPHER MILLER P Referring Unavailable MIEDEL, TARYN E Primary Care Unavailable MIEDEL, TARYN E Primary Care Unavailable CHRISTOPHER MILLER Attending Unavailable SELF Referring Unavailable MIEDEL, TARYN E Primary Care Unavailable TIKAHLIL, CHRISTOPHER P Referring Unavailable MIEDEL, TARYN E Primary Care Unavailable Allergies Allergy Classification Reported Allergen(s) Allergy Type Date of Onset Reaction(s) Facility (4 sources) Doxycycline Drug Allergy 03-09-20 10 Vomiting [facility] Work Phone: [phone] (14 sources) Erythromycin; Translations: [ERYTHROMYCIN] Drug Allergy 09-03-19 11 Intolerance [facility] (8 sources) Ispaghula husk Drug Allergy 03-09-20 10 Swelling [facility] Work Phone: (14 sources) metroNIDAZOLE; Translations: [METRONIDAZOLE HCL] Drug Allergy 03-09-20 10 Vomiting [facility] Work Phone: [phone] (4 sources) Penicillins; Translations: [PENICILLINS] Drug Intolerance 03-09-20 10 Rash [facility] Work Phone: [phone] (9 sources) Penicillins Drug Intolerance 03-09-20 10 Rash [facility] Work Phone: [phone] (9 sources) Acetaminophen Drug Allergy 12-09-19 23 headache [facility] (11 sources) dichloralphenazone Drug Allergy 12-09-19 23 headache [facility] (11 sources) isometheptene Drug Allergy 12-09-19 23 headache [facility] (11 sources) metroNIDAZOLE Drug Allergy 12-09-19 23 Vomiting [facility] (11 sources) Penicillins Allergy to substance 12-09-19 23 Itching [facility] (3 sources) Psyllium Drug Allergy 12-09-19 23 swelling [facility] (1 source) arithromicin Propensity to adverse reactions 12-09-19 23 Nausea [facility] (10 sources) Azithromycin Drug Allergy 06-08-19 24 Nausea [facility] (1 source) Penicillins Drug Allergy 03-09-20 10 Rash [facility] (1 source) Acetaminophen Drug Allergy 04-15-20 [facility] (1 source) Azithromycin Drug Allergy 12-14-19 [facility] (1 source) dichloralphenazone Drug Allergy 12-14-19 [facility] (1 source) isometheptene Drug Allergy 12-14-19 [facility] (1 source) metroNIDAZOLE Drug Allergy 12-14-19 [facility] (1 source) Penicillins Drug allergy (disorder) 12-14-19 [facility] Medications Current Medications Medication Drug Class(es) Dates Sig (Normalized) Sig (Original) [id number] 200 actuat albuterol 0.09 mg/actuat metered dose inhaler (16 sources) beta2-Adrenergic Agonist Start: 08-22-2023 End: 10-04-2023 Albuterol Sulfate (Proair Hfa) 90 mcg/actuation HFA aerosol inhaler Active 2 NMA INHALATION Q4H as needed for shortness of breath or wheezing 3 October 04, 2023 11:45am Seasonal allergies Other seasonal allergic rhinitis Start: 08-22-2023 take 1 puff(s) by in halation every four hours Albuterol Sulfate (Proair Hfa) 90 mcg/actuation HFA aerosol inhaler Active 2 PUFF INHALATION Q4H August 22, 2023 12:00am take 2 puff(s) by in halation every four hours albuterol HFA (PROVENTIL HFA, VENTOLIN HFA) 90 mcg/actuation inhaler Inhale 2 Puffs as instructed q 4 HR. Active albuterol 0.833 mg/ml / ipratropium bromide 0.167 mg/ml inhalation solution (3 sources) Anticholinergic, beta2-Adrenergic Agonist Start: 03-15-2024 take 1 mL by inhalation every four hours as needed for wheezing Ipratropium-Albuterol 0.5 mg-3 mg(2.5 mg base)/3 mL solution for nebulization Active 3 mL INHALATION EVERY 4 HOURS NEEDED as needed for SOB &/OR WHEEZING 180 March 15, 2024 12:00am Asthma Moderate persistent asthma, uncomplicated ALPRAZolam 0.5 mg oral tablet (8 sources) Benzodiazepine Start: 08-22-2023 take 1 tablet by mouth once daily as needed Alprazolam 0.5 mg tablet Active 0.5 mg PO DAILY as needed August 22, 2023 12:00am benzonatate 100 mg oral capsule (1 source) Non-narcotic Antitussive Start: 04-07-2023 End: 04-17-2023 take 2 capsules by mouth three times daily as needed benzonatate (TESSALON PERLE) 100 mg capsule Indications: Sinobronchitis Take 2 capsules by mouth three times a day as needed for up to 10 days. 60 capsule 0 04/07/2023 04/17/2023 Active Comment on above: Take 2 capsules by m outh three times a day as needed for up to 10 days. cefdinir 300 mg oral capsule (1 source) Cephalosporin Antibacterial Start: 04-07-2023 End: 04-14-2023 take 1 capsule by mouth twice daily cefdinir (OMNICEF) 300 mg capsule Indications: Other acute nonsuppurative otitis media of left ear, recurrence not specified Take 1 capsule by mouth two times a day for 7 days. 14 capsule 0 04/07/2023 04/14/2023 Active Comment on above: Take 1 capsule by mo uth two times a day for 7 days. cephalexin 500 mg oral capsule (1 source) Cephalosporin Antibacterial Start: 07-21-2024 End: 07-26-2024 take 1 capsule by mouth twice daily cephALEXin (KEFLEX) 500 mg capsule Indications: Acute cystitis without hematuria Take 1 capsule by mouth two times a day for 5 days. 10 capsule 07/21/2024 07/26/2024 Active cholecalciferol 0.05 mg oral capsule (3 sources) Vitamin D Start: 10-04-2023 take 1 capsule by mouth once daily Cholecalciferol (Vitamin D3) 50 mcg (2,000 unit) capsule Active 50 ug PO DAILY October 04, 2023 12:00am citalopram 20 mg oral tablet (20 sources) Serotonin Reuptake Inhibitor Start: 08-22-2023 Citalopram Active MG PO August 22, 2023 12:00am Start: 12-01-2020 Citalopram 20 mg tablet Active mg PO August 22, 2023 12:00am Comment on above: Take 20 mg by mouth once daily. doxycycline hyclate 100 mg oral tablet (2 sources) Tetracycline-class Drug Start: 03-14-20 End: 03-21-20 take 1 tablet by mouth twice daily doxycycline (VIBRA-TABS) 100 mg tablet Indications: Sinobronchitis Take 1 tablet by mouth two times a day for 7 days. 14 tablet 03/14/2024 03/21/2024 Active fluticasone propionate 0.05 mg/actuat metered dose nasal spray (17 sources) Corticosteroid Start: 08-29-19 End: 08-29-19 Fluticasone Propionate 50 mcg/actuation spray,suspension Active NMA INTRANASAL as needed August 29, 2023 10:41am Start: 08-29-2023 End: 08-29-2023 Fluticasone Propionate Activ e SPRAY INTRANASAL August 29, 2023 10:41am Start: 05-18-2023 End: 07-19-2023 take 2 spray(s) by mouth once daily fluticasone (FLONASE) 50 mcg/actuation nasal spray Use 2 Sprays in each nostril once daily. Rinse mouth after use. 1 Each 0 05/18/2023 07/19/2023 Discontinued (Course of therapy completed) Comment on above: Use 2 Sprays in each nostril once daily. Rinse mouth after use. 30 actuat fluticasone furoate 0.2 mg/actuat / vilanterol 0.025 mg/actuat dry powder inhaler (1 source) Corticosteroid, beta2-Adrenergic Agonist Start: 12-17-2024 Fluticasone Furoate-Vilanterol (Breo Ellipta) 200-25 mcg/dose blister with device Active 1 NMA INHALATION Q24H 3 3 December 17, 2024 12:00am herbal drugs (COLON HERBAL CLEANSER ORAL) (5 sources) End: 03-14-2024 herbal drugs (COLON HERBAL CLEANSER ORAL) Take by mouth once daily. 03/14/2024 Discontinued (Other) herbal drugs (CO JANIS HERBAL CLEANSER ORAL) Take by mouth once daily. 0 Active Comment on above: Take by mouth once d aily. HERBAL DRUGS ORAL (3 sources) End: 04-05-2022 take 2 capsules by mouth in the morning HERBAL DRUGS ORAL Take by mouth. Amberen Herbal 2 capsules in the morning 0 04/05/2022 Discontinued take 2 capsules by mouth in the morning HERBAL DRUGS ORAL Take by mouth. Amberen Herbal 2 capsules in the morning 0 Active Comment on above: Take by mouth. Nely en Herbal 2 capsules in the morning ketoconazole 20 mg/ml topical cream (11 sources) Azole Antifungal Start: 12-08-2022 Ketoconazole 2 % cream Active NMA TOPICAL December 08, 2022 12:00am Start: 12-08-2022 Ketoconazole A ctive APPLIC TOPICAL December 08, 2022 12:00am Lactobacillus acidophilus (9 sources) take 1 capsule by mo uth once daily Lactobacillus acidophilus (PROBIOTIC ACIDOPHILUS ORAL) Take 1 capsule by mouth once daily. Active take 1 capsule by mouth once tarsha ly Lactobacillus acidophilus (PROBIOTIC ACIDOPHILUS ORAL) Take 1 capsule by mouth once daily. 0 Active Comment on above: Take 1 capsule by mo uth once daily. levonorgestrel 0.069159 mg/hr intrauterine system (20 sources) Progestin, Progestin-containing Intrauterine Device Start: 08-22-2023 Levonorgestrel (Mirena) 21 mcg/24 hours (8 yrs) 52 mg intrauterine device Active INTRA-UTER August 22, 2023 12:00am Start: 04-20-2021 End: 04-19-2026 Levonorgestrel (Mirena) 21 m cg/24 hours (8 yrs) 52 mg intrauterine device Active INTRA-UTER August 22, 2023 12:00am Comment on above: 1 Each by INTRAUTERI NE route as directed. levothyroxine sodium 0.112 mg oral tablet (20 sources) l-Thyroxine Start: 12-08-2022 Levothyroxine 112 mcg tablet Active ug December 08, 2022 12:00am Start: 12-08-2022 Levothyroxine Active MCG December 08, 2022 12:00am Start: 12-21-2020 take 1 tablet by rene th once daily levothyroxine (SYNTHROID) 112 mcg tablet take 1 tablet by mouth once daily ON AN EMPTY STOMACH 12/21/2020 Active Comment on above: take 1 tablet by rene th once daily ON AN EMPTY STOMACH miSOPROStol 0.2 mg oral tablet (3 sources) Prostaglandin E1 Analog Start: 04-16-2021 End: 04-05-2022 miSOPROStol (CYTOTEC) 200 mcg tablet Use 2 tablets vaginally as directed. The night before the procedure and the morning of the procedure. 4 tablet 0 04/16/2021 04/05/2022 Discontinued Comment on above: Use 2 tablets vagina lly as directed. The night before the procedure and the morning of the procedure. montelukast 10 mg oral tablet (20 sources) Leukotriene Receptor Antagonist Start: 08-22-2023 Montelukast 10 mg tablet Active mg PO August 22, 2023 12:00am Start: 08-22-2023 Montelukast Ac tive MG PO August 22, 2023 12:00am Comment on above: Take 10 mg by mouth daily at bedtime. Nebulizer machine (3 sources) Start: Nebulizer machine Active 0 .ROUTE .MEDSUPPLY 1 0 March 15, 2024 12:00am Asthma Moderate persistent asthma, uncomplicated As directed nitrofurantoin, macrocrystals 25 mg / nitrofurantoin, monohydrate 75 mg oral capsule (2 sources) Nitrofuran Antibacterial Start: End: take 1 capsule by mouth twice daily at mealtime nitrofurantoin monohydrate and macrocrystal (MACROBID) 100 mg capsule Indications: Acute cystitis with hematuria Take 1 capsule by mouth twice daily with meals for 5 days. 10 capsule 0 08/24/2021 08/29/2021 Active Comment on above: [facility] for 5 days. predniSONE 10 mg oral tablet (3 sources) Start: End: predniSONE (DELTASONE) 10 mg tablet Indications: Sinobronchitis , History of emphysema (HCC) , Wheezing Take 4 tabs daily for 3 days, then 2 tabs daily for 3 days, then 1 tab daily for 3 days with food. 21 tablet 03/14/2024 03/23/2024 Active Start: 04-07-2023 End: 04-11-2023 take 2 tablets by mouth once daily at mealtime predniSONE (DELTASONE) 20 mg tablet Indications: Sinobronchitis Take 2 tablets by mouth once daily for 4 days. Take daily with food. 8 tablet 0 04/07/2023 04/11/2023 Active Comment on above: Take 2 tablets by mo [facility] once daily for 4 days. Take daily with food. primidone 250 mg oral tablet (20 sources) Anti-epileptic Agent Start: 08-22-2023 take 1 mg by mouth twice daily Primidone Active MG PO TWICE A DAY August 22, 2023 12:00am Start: 03-08-2021 take 1 mg by mouth twice daily Primidone 250 mg tablet Active mg PO TWICE A DAY August 22, 2023 12:00am promethazine hydrochloride 12.5 mg oral tablet (11 sources) Phenothiazine Start: 08-22-2023 End: 04-15-2024 Promethazine 12.5 mg tablet Active mg PO as needed April 15, 2024 9:13am Start: 08-22-2023 Promethazine A ctive MG PO August 22, 2023 12:00am 24 hr propranolol hydrochloride 160 mg extended release oral capsule (20 sources) beta-Adrenergic Lionel Start: 12-08-2022 take 1 capsule by mouth every twenty-four hours Propranolol 160 mg capsule,extended release 24 hr Active mg PO December 08, 2022 12:00am Start: 12-08-2022 Propranolol Ac tive MG PO December 08, 2022 12:00am Start: 12-01-2020 take 160 mg by mouth once janette y propranolol ER (INDERAL LA) 160 mg Cs24 Take 160 mg by mouth once daily. 12/01/2020 Active Comment on above: Take 160 mg by mouth once daily. spacer (3 sources) Start: 10-04-2023 spacer Active 0 .ROUTE .MEDSUPPLY 1 0 October 04, 2023 12:00am Seasonal allergies Other seasonal allergic rhinitis As directed temazepam 15 mg oral capsule (20 sources) Benzodiazepine Start: 12-08-2022 Temazepam 15 mg capsule Active mg December 08, 2022 12:00am Start: 12-08-2022 Temazepam Acti ve MG December 08, 2022 12:00am Comment on above: Take one(1) tablet d aily at bedtime. varenicline (14 sources) Partial Cholinergic Nicotinic Agonist Start: 08-22-2023 Varenicline Active 0 PO per package directions August 22, 2023 12:00am PO PER PKG DIR take 1 tablet by twice daily at mealtime varenicline (CHANTIX) 1 mg tablet Take 1 mg by mouth two times a day with meals. Active Comment on above: Take 1 mg by mouth t wo times a day with meals. Completed/Discontinued Medications Medication Drug Class(es) Dates Sig (Normalized) Sig (Original) Beclomethasone Dipropionate (8 sources) Corticosteroid Start: 08-22-2023 End: 08-29-2023 take 80 ug by inhalation twice daily Beclomethasone Dipropionate (Qvar Redihaler) 80 mcg/actuation HFA aerosol breath activated Discontinued 2 NMA INHALATION TWICE A DAY August 22, 2023 12:00am August 29, 2023 10:40am Start: 08-22-2023 End: 08-29-2023 take 80 ug by inhalation twice daily Beclomethasone Dipropionate (Qvar Redihaler) 80 mcg/actuation HFA aerosol breath activated Discontinued 2 INH INHALATION TWICE A DAY August 22, 2023 12:00am August 29, 2023 10:40am Budesonide-Formoterol (10 sources) Corticosteroid, beta2-Adrenergic Agonist Start: 12-13-2024 End: 12-17-2024 Budesonide-Formoterol (Symbicort) 160-4.5 mcg/actuation HFA aerosol inhaler Discontinued 2 NMA INHALATION TWICE A DAY 1 December 13, 2024 9:01am December 17, 2024 1:11pm Seasonal allergies Other seasonal allergic rhinitis administer with spacer, rinse mouth after each use Start: 12-13-2024 Budesonide-For moterol (Symbicort) 160-4.5 mcg/actuation HFA aerosol inhaler Active 2 NMA INHALATION TWICE A DAY 1 December 13, 2024 9:01am Seasonal allergies Other seasonal allergic rhinitis administer with spacer, rinse mouth after each use Start: 10-04-2023 End: 12-13-2024 Budesonide-Formoterol (Symbi betty) 160-4.5 mcg/actuation HFA aerosol inhaler Discontinued 2 NMA INHALATION TWICE A DAY 05 25October 04, 2023 12:00am December 13, 2024 9:02am Seasonal allergies Other seasonal allergic rhinitis administer with spacer, rinse mouth after each use Start: 10-04-2023 Budesonide-For moterol (Symbicort) 160-4.5 mcg/actuation HFA aerosol inhaler Active 2 NMA INHALATION TWICE A DAY 1 October 04, 2023 12:00am Seasonal allergies Other seasonal allergic rhinitis administer with spacer, rinse mouth after each use take 2 puff(s) by in halation twice daily budesonide-formoterol (SYMBICORT) 160-4.5 mcg/actuation inhaler Inhale 2 Puffs as instructed two times a day. Active fluconazole 100 mg oral tablet (3 sources) Azole Antifungal Start: 01-10-2024 End: 04-15-2024 take 1 tablet by mouth once daily Fluconazole 100 mg tablet Discontinued 100 mg PO daily 7 0 January 10, 2024 12:00am April 15, 2024 9:12am loratadine 10 mg oral tablet (20 sources) Start: 06-20-2011 End: 04-15-2024 take 1 tablet by mouth once daily Loratadine 10 mg tablet Discontinued 10 mg PO DAILY August 22, 2023 12:00am April 15, 2024 9:13am Comment on above: Take 1 tablet by rene th once daily. Varenicline Tartrate 0.5 mg (11)- 1 mg (42) tablets,dose pack (3 sources) Start: 08-22-2023 End: 01-10-2024 take 1 tablet by mouth once Varenicline Tartrate 0.5 mg (11)- 1 mg (42) tablets,dose pack Discontinued 0 PO per package directions August 22, 2023 12:00am January 10, 2024 11:10am PO PER PKG DIR Problems Active Problems Problem Classification Problem Date Documented Da te Episodic/Chronic Abdominal pain (3 sources) Pain in pelvis; Translations: [Pelvic and perineal pain] 07-19-2023 Episodic Anxiety disorders (8 sources) Anxiety state; Translations: [Generalized anxiety disorder] 08-22-2023 Chronic Asthma (20 sources) Exacerbation of asthma; Translations: [Unspecified asthma with (acute) exacerbation] 06-08-2023 Chronic Chronic obstructive pulmonary disease and bronchiectasis (1 source) History of emphysema; Translations: [Emphysema, unspecified] 03-14-2024 Chronic Contraceptive and procreative management (2 sources) Intrauterine contraceptive device in situ; Translations: [Encounter for routine checking of intrauterine contraceptive device] 07-20-2023 Episodic Genitourinary symptoms and ill-defined conditions (1 source) Female stress incontinence; Translations: [Stress incontinence (female) (male)] 07-19-2023 Chronic Headache; including migraine (8 sources) Migraine; Translations: [Migraine, unspecified, not intractable, without status migrainosus] 08-22-2023 Chronic Immunizations and screening for infectious disease (3 sources) Patient encounter status; Translations: [Encounter for screening for human papillomavirus (HPV)] 07-19-2023 Episodic Menopausal disorders (1 source) Menorrhagia; Translations: [Excessive bleeding in the premenopausal period] 07-19-2023 Chronic Mycoses (3 sources) Candidiasis of mouth; Translations: [Candidal stomatitis] 01-10-2024 Episodic Nonspecific chest pain (11 sources) Atypical chest pain; Translations: [Other chest pain] 12-08-2022 Episodic Other female genital disorders (1 source) Abnormal uterine bleeding; Translations: [Abnormal uterine and vaginal bleeding, unspecified] 07-21-2023 Chronic Other female genital disorders (1 source) Vaginal discharge; Translations: [Other specified noninflammatory disorders of vagina] Episodic Other female genital disorders (1 source) H/O: abnormal uterine bleeding; Translations: [Personal history of other diseases of the female genital tract] 07-21-2023 Episodic Other gastrointestinal disorders (8 sources) Irritable bowel syndrome; Translations: [Irritable bowel syndrome without diarrhea] 08-22-2023 Chronic Other hereditary and degenerative nervous system conditions (8 sources) Essential tremor; Translations: [Essential tremor] 08-22-2023 Chronic Other hereditary and degenerative nervous system conditions (8 sources) Restless legs; Translations: [Restless legs syndrome] 08-22-2023 Chronic Other lower respiratory disease (1 source) Wheezing; Translations: [Wheezing] 03-14-2024 Episodic Other nutritional; endocrine; and metabolic disorders (8 sources) Obesity; Translations: [Obesity, unspecified] 08-22-2023 Chronic Other screening for suspected conditions (not mental disorders or infectious disease) (3 sources) Encounter for screening for malignant neoplasm of respiratory organs; Translations: [Other abnormal and inconclusive findings on diagnostic imaging of breast] Onset: 11-11-2024 Episodic Other upper respiratory disease (3 sources) Seasonal allergy; Translations: [Other seasonal allergic rhinitis] 10-04-2023 Chronic Other upper respiratory disease (1 source) Other seasonal allergic rhinitis; Translations: [Other seasonal allergic rhinitis] Onset: 12-13-2024 Chronic Other upper respiratory infections (2 sources) Chronic sinusitis; Translations: [Chronic sinusitis, unspecified] 04-07-2023 Chronic Other upper respiratory infections (1 source) Viral upper respiratory tract infection; Translations: [Acute upper respiratory infection, unspecified] 04-07-2023 Episodic Otitis media and related conditions (1 source) Acute secretory otitis media; Translations: [Other acute nonsuppurative otitis media, left ear] 04-07-2023 Episodic Residual codes; unclassified (8 sources) Tobacco user; Translations: [Tobacco use] 08-22-2023 Episodic Residual codes; unclassified (8 sources) Persistent insomnia; Translations: [Insomnia, unspecified] 08-22-2023 Episodic Spondylosis; intervertebral disc disorders; other back problems (1 source) Acute low back pain; Translations: [Acute left-sided low back pain without sciatica] 07-21-2024 Episodic Substance-related disorders (15 sources) Tobacco dependence in remission; 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, cigarettes, in remission] 08-29-2023 Chronic Comment on above: Greater than 20-pack -year history LDCT due September 2024 Greater than 20-pack -year history LDCT due October 2025 Thyroid disorders (8 sources) Hypothyroidism; Translations: [Hypothyroidism, unspecified] 08-22-2023 Chronic Unclassified (1 source) Cough, unspecified; Translations: [Cough, unspecified] Onset: 01-09-2025 Unclassified (1 source) Pelvic pain in female; Translations: [Pelvic pain in female] Onset: 02-27-2025 Urinary tract infections (2 sources) Acute cystitis; Translations: [Acute cystitis with hematuria] Episodic Past or Other Problems Problem Classification Problem Date Documented Da te Episodic/Chronic Residual codes; unclassified (13 sources) Family history of cancer of colon; Translations: [Family history of malignant neoplasm of digestive organs] Onset: 09-21-2010 09-21-2010 Episodic Results Test Name Value Interpretation Reference Range Facility [facility] 03-19 [facility] * * *Final Report* * * DATE OF EXAM: Mar 19 2025 8:51AM [id number] - [facility] [employer] [facility] / PROCEDURE REASON: Abnormal mammogram * * * * Physician Interpretation * * * * [place] [address] #[id number] - [facility] [employer] [facility] HISTORY: 60 year-old patient presents for diagnostic evaluation of the finding(s) described on prior mammogram in the left breast. Patient states no personal history of breast cancer. COMPARISON STUDIES: No prior imaging studies are available for comparison. ULTRASOUND TECHNIQUE: Targeted ultrasound of the indicated area was performed. Fraser scale images were saved. ULTRASOUND FINDINGS: There is an area measuring 0.8 x 0.6 x 0.3 cm at 9 o'clock, 5 cm from the nipple in the left breast. This is consistent with fibrocystic changes. The patient also has fairly extensive areas of fibrocystic change throughout much of the left breast as evidenced by mammogram which is fairly similar compared to 202 as well as on ultrasound clip stores which show additional areas of fibrocystic change. There are no suspicious findings in the imaged area. IMPRESSION: There are no suspicious sonographic findings in the imaged area. Return to annual screening mammogram is recommended. Annual mammogram will be due in 1 year. BI-RADS Category 2: Benign Interpreting Radiologist: Richar Reed M.D. Electronically signed on: 03/19/2025 Referral Clerk: ELDON Transcribe Date/Time: Mar 19 2025 8:52A Dictated by : RICHAR REED MD This examination was interpreted and the report reviewed and electronically signed by: RICHAR REED MD on Mar 19 2025 10:12AM EST [id number] CN Normal [facility] [place] 03-05-2025 CNPN Telephone (RADMN) NAKIA DENG ([id number]) 1965 F Date Time Provider Department 03/05/25 MELISSA CURTIS During your visit today, we recorded the following information about you: Allergies As of Date: 03/05/2025 Noted Allergy Reaction ERYTHROMYCIN 09/02/2010 5 - Intolerance Comments: Dizzy and upset stomach PENICILLINS 03/09/2010 2 - Rash FLAGYL (METRONIDAZOLE HCL) 03/09/2010 11 - Vomiting Date Reviewed: 02/26/2025 Reviewed by: Ronnell Garcia LPN - Fully Assessed Reason for Visit: Mammogram Result Call Back [[id number]] Cmt: left breast diag mamm and us cb per ar Prescriptions as of 03/05/2025 - doxycycline monohydrate 100 mg tablet - BREO ELLIPTA 200-25 mcg/dose inhaler Inhale 1 inhalation as instructed once daily. - albuterol HFA (PROVENTIL HFA, VENTOLIN HFA) 90 mcg/actuation inhaler Inhale 2 Puffs as instructed q 4 HR. - budesonide-formotero l (SYMBICORT) 160-4.5 mcg/actuation inhaler Inhale 2 Puffs as instructed two times a day. - Lactobacillus acidophilus (PROBIOTIC ACIDOPHILUS ORAL) Take 1 capsule by mouth once daily. - varenicline (CHANTIX) 1 mg tablet Take 1 mg by mouth two times a day with meals. - levonorgestrel (MIRENA) 20 mcg/24 hours (7 yrs) 52 mg IUD 1 Each by INTRAUTERINE route as directed. - primidone (MYSOLINE) 250 mg tablet - citalopram (CELEXA) 20 mg tablet Take 20 mg by mouth once daily. - levothyroxine (SYNTHROID) 112 mcg tablet take 1 tablet by mouth once daily ON AN EMPTY STOMACH - propranolol ER (INDERAL LA) 160 mg Cs24 Take 160 mg by mouth once daily. - montelukast (SINGULAIR) 10 mg tablet Take 10 mg by mouth daily at bedtime. - loratadine (CLARITIN) 10 mg tablet Take 1 tablet by mouth once daily. - temazepam (RESTORIL) 15 mg Take one(1) tablet daily at bedtime. Meds Comments as of 04/02/2018: restoril, propanolol, estrogen 04/02/18 Estefania Cash RN Problem List As Of Date 03/05/2025 Noted Resolved Family history of colon cancer [Z80.0] 09/21/2010 Encounter Status:Closed by JAMES PETER on 03/05/25 [facility] [place] 03-03-2025 CNPN Telephone (OBGYWM) NAKIA DENG ([id number]) 1965 F Date Time Provider Department 03/03/25 CHRISTOPHER MILLER OBGYWM During your visit today, we recorded the following information about you: Francisca Oliver RN 03/03/2025 3:37 PM Signed Patient viewed her Mammogram results on [facility]. Additional imaging needed. Can you also place a Mamm diagnostic order in case radiology needs this in addition to the breast US? Patient was given the Breast Center phone number to call and schedule once we call her back. DAMIEN Steve Anthony P, MD 03/05/2025 8:41 AM Signed Please call patient to assist with scheduling dx barbara/ultrasound Christopher Miller MD Allergies As of Date: 03/03/2025 Noted Allergy Reaction ERYTHROMYCIN 09/02/2010 5 - Intolerance Comments: Dizzy and upset stomach PENICILLINS 03/09/2010 2 - Rash FLAGYL (METRONIDAZOLE HCL) 03/09/2010 11 - Vomiting Date Reviewed: 02/26/2025 Reviewed by: Ronnell Garcia LPN - Fully Assessed Reason for Visit: Orders [681] Primary Visit Diagnosis:Mass of left breast, unspecified quadrant [N63.20] Order(s):[facility] LEFT [[id number]] Order #: [id number] FUTURE Prescriptions as of 03/05/2025 - doxycycline monohydrate 100 mg tablet - BREO ELLIPTA 200-25 mcg/dose inhaler Inhale 1 inhalation as instructed once daily. - albuterol HFA (PROVENTIL HFA, VENTOLIN HFA) 90 mcg/actuation inhaler Inhale 2 Puffs as instructed q 4 HR. - budesonide-formotero l (SYMBICORT) 160-4.5 mcg/actuation inhaler Inhale 2 Puffs as instructed two times a day. - Lactobacillus acidophilus (PROBIOTIC ACIDOPHILUS ORAL) Take 1 capsule by mouth once daily. - varenicline (CHANTIX) 1 mg tablet Take 1 mg by mouth two times a day with meals. - levonorgestrel (MIRENA) 20 mcg/24 hours (7 yrs) 52 mg IUD 1 Each by INTRAUTERINE route as directed. - primidone (MYSOLINE) 250 mg tablet - citalopram (CELEXA) 20 mg tablet Take 20 mg by mouth once daily. - levothyroxine (SYNTHROID) 112 mcg tablet take 1 tablet by mouth once daily ON AN EMPTY STOMACH - propranolol ER (INDERAL LA) 160 mg Cs24 Take 160 mg by mouth once daily. - montelukast (SINGULAIR) 10 mg tablet Take 10 mg by mouth daily at bedtime. - loratadine (CLARITIN) 10 mg tablet Take 1 tablet by mouth once daily. - temazepam (RESTORIL) 15 mg Take one(1) tablet daily at bedtime. Meds Comments as of 04/02/2018: restoril, propanolol, estrogen 04/02/18 Estefania Cash RN Problem List As Of Date 03/03/2025 Noted Resolved Family history of colon cancer [Z80.0] 09/21/2010 Encounter Status:Closed by FRANCISCA OLIVER on 03/05/25 Normal [facility] [facility] MY[facility] * * *Final Report* * * DATE OF EXAM: Feb 27 2025 2:20PM WRW [id number] - [place] SCREENING W MYRNA / PROCEDURE REASON: multiple diagnoses * * * * Physician Interpretation * * * * RESULT: [facility] [address] [place] [address] #[id number] - [place] SCREENING W MYRNA HISTORY: 60 year-old patient presents for screening. Patient is asymptomatic in both breasts. Patient states no personal history of breast cancer. COMPARISON STUDIES: The present examination has been compared to prior imaging studies dated 05/26/2020 (mammography), 07/21/2021 (mammography), 07/22/2022 (mammography) and 07/26/2023 (mammography). MAMMOGRAM TECHNIQUE: The study was acquired using full field digital technology and interpreted from soft copy. Digital Breast Tomosynthesis (DBT) images were obtained and used to assist in the interpretation of this examination. MAMMOGRAM FINDINGS: There are scattered areas of fibroglandular density. There is a mass in the anterior depth upper inner quadrant of the left breast. No suspicious masses, calcifications or other abnormalities are seen in the right breast. IMPRESSION: The mass in the anterior depth upper inner quadrant of the left breast requires additional evaluation. Diagnostic ultrasound is recommended. BI-RADS Category 0: Incomplete: Needs Additional Imaging Evaluation RISK: Based on the Tyrer-Cuzick (TC) risk assessment model, this patient has a 7.1% lifetime risk of developing breast cancer, meaning they are at average risk for developing breast cancer. However, this is only an estimate based on available history provided on the patient's questionnaire. We encourage all patients to talk with their providers about these results, further recommendations for managing breast health, and appropriate supplemental screening options if the patient has dense breast tissue. REF#[id number]. Interpreting Radiologist: Melissa Curtis M.D. Electronically signed on: 03/02/2025 Referral Clerk: ELDON Transcribe Date/Time: Feb 27 2025 2:01P Dictated by: MELISSA CURTIS MD This examination was interpreted and the report reviewed and electronically signed by: MELISSA CURTIS MD on Mar 02 2025 1:57PM EST [id number] CN Normal [facility] CNOVon 02-26-2025 CNOV Office Visit (OBGYWM) NAKIA DENG ([id number]) 1965 F Date Time Provider Department 02/26/25 10:30 AM CHRISTOPHER MILLER OBGYWSuleiman During your visit today, we recorded the following information about you: Blood pressure Weight 112/78 92.1 kg Christopher Miller MD 02/26/2025 11:36 AM Signed Director Hedis offered: Patient accepts, visit chaperoned by Ronnell lopezIggy Boss is a 60 year old who presents for an annual gynecologic exam, intermittent pelvic pain. Postmenopausal: bleeding at age 56 HRT use: No. 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 History Comments: Sexual Activity: Yes; Male Contraception: Tubal Ligation PAST MEDICAL HISTORY Diagnosis Date Arthritis Asthma Benign head tremor Carpal tunnel syndrome Both hands Depression Hypothyroidism IBS (irritable bowel syndrome) RLS (restless legs syndrome) PAST SURGICAL HISTORY Procedure Laterality Date ABDOMINAL SURGERY HX COLONOSCOPY FLX DX W/COLLJ SPEC WHEN PFRMD 09/21/2010 repeat 09/2015 COLONOSCOPY FLX DX W/COLLJ SPEC WHEN PFRMD 11/24/2015 normal - 5 year follow up COLONOSCOPY FLX DX W/COLLJ SPEC WHEN PFRMD 02/02/2021 DILATION AND CURETTAGE DXAND/THER NONOBSTETRIC Dilation AND curettage INSERTION OF IUD LIG/TRNSXJ FLP TUBE ABDL/VAG APPR UNI/BI Tubal ligation REVISE MEDIAN N/CARPAL TUNNEL SURG Right 11/2019 SKIN BIOPSY HX FAMILY HISTORY Problem Relation Age of Onset Heart Mother Osteoporosis Mother Colon Cancer Father Colon Cancer Sister No Known Problems Brother Interstitial Lung Disease Maternal Grandmother Colon Cancer Paternal Grandmother Dementia Paternal Grandfather SOCIAL HISTORY Social History Tobacco Use Smoking status: Every Day Current packs/day: 0.00 Types: Cigarettes Last attempt to quit: 08/1992 Years since quittin.5 Smokeless tobacco: Never Vaping Use Vaping status: Never Used Substance Use Topics Alcohol use: Yes Comment: weekly Drug use: No REVIEW OF SYSTEMS Abdomen: No abdominal pain, nausea, vomiting, diarrhea, or constipation. No bloating, early satiety, indigestion, or increased flatulence. Bladder: No dysuria, gross hematuria, urinary frequency, + urinary urgency, and incontinence Breast: No breast lumps, nipple d/c, overlying skin changes, redness or skin retraction Allergies and current medication updated:Yes SENSITIVE EXAM: The sensitive examination was discussed with the Patient or Patient's Authorized Wood Barrel Reconditioner. As applicable, any other physician, advance practice provider, medical student, or other health professional student that will be observing or involved in the sensitive examination for educational or training purposes was discussed with the Patient or Authorized Wood Barrel Reconditioner. The Patient or Authorized Wood Barrel Reconditioner has agreed to proceed with the sensitive examination. (Sensitive examination includes inspection and/or palpation of the breasts, pelvis, prostate and anorectal regions). EXAM: LMP 05/26/2022 GENERAL: pleasant, female in no apparent distress HEENT: Normocephalic, atraumatic, mucus membranes moist, and no lesions. Noting essentialtremor NECK: Supple, full range of motion, no adenopathy, and thyroid normal DERMATOLOGY: Normal, without lesions, non-icteric, and non-hirsute BREAST: soft, non-tender, symmetric, no dominant mass, normal nipple-areolar complex, no lymphadenopathy, and no nipple discharge CHEST: Normal inspiratory effort ABDOMEN: soft, non-tender, and no masses PELVIC: external genitalia normal, normal Bartholin's glands, urethra, [place]'s glands, no vulvar lesions, no cervical lesions, good vaginal support, physiologic discharge present, normal appearing perineal body and perianal region BIMANUAL: uterus normal size, shape and consistency, non-tender, and unable to adequately evaluate adnexa RECTOVAGINAL: deferred. NEURO: alert and oriented x3,exam grossly non-focal EXTREMITIES: normal ASSESSMENT/PLAN: 1) Health maintenance: Mammogram ordered 2) Follow up one year or sooner as needed 3) IUD string in place 4) Pelvic ultrasound evaluate adnexa Christopher Miller MD Referring Provider: SELF [200] Allergies As of Date: 02/26/2025 Noted Allergy Reaction ERYTHROMYCIN 09/02/2010 5 - Intolerance Comments: Dizzy and upset stomach PENICILLINS 03/09/2010 2 - Rash FLAGYL (METRONIDAZOLE HCL) 03/09/2010 11 - Vomiting Date Re (more content not included)... Normal [facility] Chest PA and Lateralon 01-03 Chest PA and Lateral [facility] Imaging Services [address] [place] [address] Chest PA and Lateral MR#: [id number] Acct: [id number] Name: NAKIA DENG Rep #: [id number] : 1965 F 59 From: Darius Beltran PCP: Dr. Taryn Kim MD Status: REG CLI Study: Chest PA and Lateral Date of Exam: 01/03/25 Exam# [id number] Ordering Dr: Tiny Burleson TAXI SERVICER-Carolynn PROCEDURE: CHEST PA AND LATERAL 01/03/2025 REASON FOR EXAM: RULE OUT PNEUMONIA, SOB TECHNIQUE: CHEST PA AND LATERAL COMPARISON: AP chest of 06/08/2023 RAD/Chest PA and Lateral IMPRESSION: Lungs appear clear throughout. No pleural effusion or pneumothorax is evident. The cardiomediastinal silhouette is within the normal range. Mild to moderate degenerative changes of the visualized spine are noted. No acute osseous process is seen. Reading Location: [place] [address] CC: TAXI SERVICER-C Tiny Burleson; Dr. Taryn Kim MD Referral Clerk: Signed Normal [facility] Pulmonary Visit Reporton Pulmonary Visit Report [facility] [address] [place] [address] OFFICE VISIT Date of Service: 12/13/24 MR#: [id number] Acct: [id number] Name: NAKIA DENG Rep #: [id number] : 1965 Provider: Sil Selby NP Age/Sex: 59/F Location: [facility] [place].[facility] Status: Signed Assessment and Plan Assessment and Plan (1) Asthma: Status: Chronic Qualifiers: Asthma complication type: uncomplicated Asthma persistence: persistent Asthma severity: moderate Qualified Code(s): J45.40 - Moderate persistent asthma, uncomplicated Plan: Stable, no signs of exacerbation of asthma today. No change in maintenance medications, symptomatically controlled on Symbicort, and Singulair. The patient has asked if she can discontinue Singulair. Due to the time of year I have recommended that she continue the use of this medication at this time. She has been given a list of alternative ICS/LABA inhalers that are comparable to the dosing of Symbicort to mcgregor with her insurance company as she indicates that her Symbicort is costly. No additional testing at this time but if she has exacerbation or worsening respiratory symptoms then I have recommended repeating a PFT and 6-minute walk test.. Contact the office with any signs of new or worsening symptoms. Follow-up in October 2025. (2) Nicotine dependence, cigarettes, in remission: Status: Chronic Comment: Greater than 97-ivad-vyzg history LDCT due October 2025 Plan: Encourage complete smoking cessation, she is not ready to quit today. She continues to meet criteria to follow by the LDCT screening program. Repeat LDCT in October 2025, ordered accordingly. Orders: Orders Low Dose CT Lung Screening 10/13/25 F17.211 - Nicotine dependence, cigarettes, in remission Medications: Refilled budesonide-formotero l 160-4.5 mcg/actuation (Symbicort) administer with spacer, rinse mouth after each use 2 inhalations inhalation BID 1 ea 11RF J30.2 - Other seasonal allergic rhinitis Plan Details Follow Up: 1 Year (LMR) HPI HPI Comments Details: This patient presents to the office today for follow-up of her asthma. She is ambulatory and currently on room air. She has not recently been seen in the ED or urgent care for respiratory symptoms. She has not required the use of antibiotics or oral prednisone for respiratory symptoms. She has been compliant with the use of Symbicort 2 puffs twice daily. She does report rinsing her mouth out after each use. She had thrush recently and was treated by her PCP within the last month. She is compliant with Singulair daily. She reports use of loratadine. She has not recently needed the albuterol rescue inhaler except for once every couple months. She is compliant with allergy shots. She reports an asthma attack in June. She took albuterol nebulized with good benefit and did not require oral prednisone. She does have shortness of breath with the hot humid weather. She reports an occasional cough that is productive with yellow sputum and she will wheeze on occasion. She denies chest tightness and chest pain. She also denies any fever, chills or body aches. She continues to smoke cigarettes. She is now smoking about 3/4 pack/day. She does not use supplemental oxygen. Documentation reviewed with patient today includes: Low-dose screening lung CT from November 06, 2024 shows mild emphysematous changes present, coronary artery calcification is absent. There is a stable 1.2 x 1.5 peritracheal lymph node. No pulmonary nodules identified. Intake Vital Signs 04/15/24 07:26 12/13/24 08:11 Height 5 ft 2 in 5 ft 2 in Weight: 203 lb BMI 37.1 BP 138/81 H Blood Pressure Location Lt brachial Position Sitting Respiration 18 Pulse 80 Pulse Source Monitor Temp 95.7 F L Temperature Source Temporal Artery Pulse Oximetry (%) 95 Oxygen Delivery Method room air Intake Visit Reasons: 6 M [employer] F[employer] Required: No Accompanied by: Self Allergies azithromycin Allergy (Mild, Verified 12/13/24 08:54) Nausea Penicillins Allergy (Verified 12/13/24 08:54) Itching dichloralphenazone (From Midrin) Adverse Reaction (Mild, Verified 12/13/24 08:54) headache isometheptene (From Midrin) Adverse Reaction (Mild, Verified 12/13/24 08:54) headache metronidazole (From Flagyl) Adverse Reaction (Verified 12/13/24 08:54) Vomiting Medications ???Medication ???Instructions ???Recorded ???Confirmed ???Type ketoconazole 2 % topical cream applic topical 12/08/22 12/13/24 H istory levothyroxine 112 mcg tablet mcg 12/08/22 12/13/24 History propranolol 160 mg capsule,24 mg PO 12/08/22 12/13/24 History hr,extended release temazepam 15 mg capsule mg 12/08/22 12/13/24 History alprazolam 0.5 mg tablet 0.5 mg PO DAILY PRN 08/22/2312/13 Histor (more content not included)... Normal [facility] Low Dose CT Lung Screeningon 11-06-[address] Lung Screening [facility] Imaging Services [address] [place], [place] [id number] Low Dose CT Lung Screening MR#: [id number] Acct: [id number] Name: NAKIA DENG Rep #: [id number] : 1965 F 59 From: Trav larkin MD PCP: Dr. Taryn Kim MD Status: REG CLI Study: Low Dose CT Lung Screening Date of Exam: 11/06 Exam# [id number] Ordering Dr: [place]ia Glover TAXI SERVICER TAXI SERVICER-C PROCEDURE: LOW DOSE CT LUNG SCREENING 11/06/2024 REASON FOR EXAM: SMOKER QUIT 06/2023 TECHNIQUE: LOW DOSE CT LUNG SCREENING Coronal and Sagittal reconstruction series were provided. One or more dose reduction techniques were used (e.g., Automated exposure control, adjustment of the mA and/or kV according to patient size, use of iterative reconstruction technique). REFERENCE LINK: [employer] Lung-RADS RADIATION DOSE SUMMARY: CTDlvol: 4.02 mGy DLP: 153.0 mGycm COMPARISON: Prior study dated September 18, 2023. FINDINGS: PULMONARY NODULES: (Only nodules >3mm are reported) Nodules described below are on series 1 unless otherwise specified. Pulmonary Nodules: None Hardware:None Lymph Nodes:Stable 1.2 cm 1.5 cm pretracheal lymph node. Heart and Vasculature:The heart is not enlarged. Coronary Artery Calcifications: Absent Lungs and Airways: Mild emphysematous changes are present. Pleura:Unremarkable Upper Abdomen:Unremarkable Bones:Degenerative changes of the thoracic spine. CT/Low Dose CT Lung Screening IMPRESSION: Stable examination. Coronary artery calcification (CAC) is is absent Lung-RADS Category: 2 BENIGN (BASED ON IMAGING FEATURES OR INDOLENT BEHAVIOR). RECOMMEND 12-MONTH SCREENING LDCT. Other Significant Findings: Reading Location: [id number] CC: TAXI SERVICER-C [place]ia Glover; Dr. Taryn Kim MD Referral Clerk: Signed Normal [facility] Bacteria Ur Culton Bacteria identified Cx Nom (U) ORGANISM ID: 1 50,000-<100,000 CFU/ml Normal urogenital julio Normal [facility] Comment on above: Performed By: #### 6 30-4 #### [facility] CLIA [id number] [address] [place] [address] [facility] CNOVon 07-21-2024 CNOV Office Visit (UCWSTR) DENG,SUSAN Carolynn ([id number]) 1965 F Date Time Provider Department 07/21/24 10:30 AM JO-ANN AVENDANO [facility] During your visit today, we recorded the following information about you: Temperature Pulse Respiration Blood pressure 98.5 degrees 92/minute 16/minute 118/72 Weight 93.6 kg Jo-Ann Avendano APRN.VIDEO JOURNALIST 07/21/2024 11:00 AM Signed [facility] Subjective Nakia Deng is a 59 year old female. Patient presents with: Low Back Pain: left side, nausea x 3 days, took azo Patient came in with complaints of lower abdominal cramping mild burning when she urinates lower left back pain mild fever the other day. Patient says she has had UTIs before it feels the same. Denies any other symptoms. The history is provided by the patient. No motor vehicle parts interpreter was used. Review of Systems Constitutional: Negative. Objective BP 118/72 Pulse 92 Temp 36.9 ?C (98.5 ?F) Resp 16 Wt 93.6 kg (206 lb 5.6 oz) LMP 05/26/2022 SpO2 95% BMI 37.44 kg/m? Physical Exam Constitutional: Appearance: Normal appearance. Cardiovascular: Rate and Rhythm: Normal rate and regular rhythm. Heart sounds: Normal heart sounds. Pulmonary: Effort: Pulmonary effort is normal. Breath sounds: Normal breath sounds. Abdominal: General: Abdomen is flat. Palpations: Abdomen is soft. Tenderness: There is no abdominal tenderness. Neurological: Mental Status: She is alert. ASSESSMENT/PLAN: 1. Acute left-sided low back pain without sciatica - ICD9: 724.2, ICD10: M54.50 (primary diagnosis) - UA DIP, URINE (POC) - BACTERIAL CULTURE, URINE 2. Acute cystitis without hematuria - ICD9: 595.0, ICD10: N30.00 - CEPHALEXIN 500 MG CAPSULE Educated about proper use of medication and supportive therapies. If culture comes back of medication needs changed please call in another medication. Jo-Ann Avendano APRN.VIDEO JOURNALIST History and Record Review External record(s) reviewed: no prior records. Differential Diagnoses - uti, is more likely for the following reason(s): suggested by HANDP - kidney infection is less likely for the following reason(s): HANDP not suggestive Disposition The patient was discharged. Procedures Allergies As of Date: 07/21/2024 Noted Allergy Reaction ERYTHROMYCIN 09/02/2010 5 - Intolerance Comments: Dizzy and upset stomach PENICILLINS 03/09/2010 2 - Rash FLAGYL (METRONIDAZOLE HCL) 03/09/2010 11 - Vomiting Date Reviewed: 07/21/2024 Reviewed by: Sharona Willard MA - Fully Assessed Reason for Visit: Low Back Pain [126] Cmt: left side, nausea x 3 days, took azo Primary Visit Diagnosis:Acute left-sided low back pain without sciatica [M54.50] Other Visit Diagnosis:Acute cystitis without hematuria [N30.00] Order(s):UA DIP, URINE (POC) [6319421] Order #: [id number]. #:[id number] BACTERIAL CULTURE, URINE [SQURCUL] Order #: [id number]. #:[id number] cephALEXin (KEFLEX) 500 mg capsuleTake 1 capsule by mouth two times a day for 5 days.Disp: 10 capsuleRfl: 0 Prescriptions as of 07/21/2024 - cephALEXin (KEFLEX) 500 mg capsule Take 1 capsule by mouth two times a day for 5 days. - albuterol HFA (PROVENTIL HFA, VENTOLIN HFA) 90 mcg/actuation inhaler Inhale 2 Puffs as instructed q 4 HR. - budesonide-formotero l (SYMBICORT) 160-4.5 mcg/actuation inhaler Inhale 2 Puffs as instructed two times a day. - Lactobacillus acidophilus (PROBIOTIC ACIDOPHILUS ORAL) Take 1 capsule by mouth once daily. - varenicline (CHANTIX) 1 mg tablet Take 1 mg by mouth two times a day with meals. - levonorgestrel (MIRENA) 20 mcg/24 hours (7 yrs) 52 mg IUD 1 Each by INTRAUTERINE route as directed. - primidone (MYSOLINE) 250 mg tablet - citalopram (CELEXA) 20 mg tablet Take 20 mg by mouth once daily. - levothyroxine (SYNTHROID) 112 mcg tablet take 1 tablet by mouth once daily ON AN EMPTY STOMACH - propranolol ER (INDERAL LA) 160 mg Cs24 Take 160 mg by mouth once daily. - montelukast (SINGULAIR) 10 mg tablet Take 10 mg by mouth daily at bedtime. - loratadine (CLARITIN) 10 mg tablet Take 1 tablet by mouth once daily. - temazepam (RESTORIL) 15 mg Take one(1) tablet daily at bedtime. Meds Comments as of 04/02/2018: restoril, propanolol, estrogen 04/02/18 Estefania Cash RN Problem List As Of Date 07/21/2024 Noted Resolved Family history of colon cancer [Z80.0] 09/21/2010 Prescriptions ordered this encounter Disp Refills Start End CEPHALEXIN 500 MG CAPSULE 10 c* 0 07/21/2024 07/26/2024 Route: ORAL Sig: Take 1 capsule by mouth two times a day for 5 days. Encounter Status:Closed by JO-ANN AVENDANO on 07/21/24 Normal [facility] UA DIP, URINE (POC)on 2024 BILIRUBIN UA (POCT) Large Abnormal Negative [facility] CLARITY UA (POCT) Cloudy [facility] COLOR UA (POCT) Jewell [facility] GLUCOSE UA (POCT) 250 mg/dL Abnormal Negative [facility] Hemoglobin Ql (U) Moderate Abnormal Negative [facility] Interpretation and review of laboratory results Abnormal [facility] KETONE UA (POCT) 15 mg/dL Abnormal Negative [facility] LEUKOCYTES UA (POCT) Large Abnormal Negative [facility] NITRITE UA (POCT) Positive Abnormal Negative [facility] PH UA (POCT) 5 4.5 - 8.0 [facility] Protein Ql (U) >=300 Abnormal Negative mg/dL [facility] SPECIFIC GRAVITY UA (POCT) <=1.005 Abnormal 1 .005 - 1.030 [facility] UROBILINOGEN UA (POCT) >=8.0 Abnormal Ramya l E.U./dL [facility] Location:[facility] [address] [facility], [place], [place], [id number] [place] [address] POINT OF CARE [facility] Pulmonary Visit Reporton Pulmonary Visit Report [facility] [address] [place] [address] OFFICE VISIT Date of Service: 04/15/24 MR#: [id number] Acct: [id number] Name: NAKIA DENG Rep #: [id number] : [id number] Provider: AMPARO Glover Age/Sex: 59/F Location: [facility] [place].PM[place] Status: Signed Assessment and Plan Assessment and Plan (1) Asthma: Status: Chronic Qualifiers: Asthma complication type: uncomplicated Asthma persistence: persistent Asthma severity: moderate Qualified Code(s): J45.40 - Moderate persistent asthma, uncomplicated Plan: Stable, no signs of exacerbation of asthma today. No change in maintenance medications, symptomatically controlled on Symbicort, and Singulair. No additional testing at this time. Contact the office with any signs of new or worsening symptoms. Follow-up in October 2024. (2) Nicotine dependence, cigarettes, in remission: Status: Chronic Comment: Greater than [id number] history LDCT due September 2024 Plan: Encourage complete smoking cessation. Repeat LDCT in September 2024, ordered. Plan Details Follow Up: 10/13/24 (LMR) HPI HPI Comments Details: This patient presents to the office today for follow-up of her asthma. She is ambulatory and currently on room air. She has not recently been seen in the ED, but was seen in urgent care around [facility] for an asthma flair. She was treated with Doxy and a prednisone burst. Symptoms did resolve with this course of treatment. She has been compliant with the use of Symbicort 2 puffs twice daily. She does report rinsing her mouth out after each use. She had thrush recently and was treated by her PCP within the last month. She is compliant with Singulair daily. She has not recently needed the albuterol rescue inhaler. She is compliant with allergy shots. She denies any difficulty with shortness of breath. She reports an occasional dry cough, denies any sputum production or hemoptysis. She admits to occasional wheezing. She denies any chest tightness, chest pain or palpitations. She also denies any fever, chills or body aches. She continues to smoke cigarettes. She is now smoking about 1/2 pack/day. Intake Vital Signs 01/10/24 07:53 04/15/24 07:26 Height 5 ft 2 in 5 ft 2 in Weight: 207 lb 210 lb BMI 37.8 38.4 BP 100/68 126/82 H Blood Pressure Location Lt brachial Rt brachial Position Sitting Sitting Respiration 22 H 20 H Pulse 58 L 71 Pulse Source Monitor Monitor Temp 97.3 F L 96.2 F L Temperature Source Temporal Artery Temporal Artery Pulse Oximetry (%) 98 97 Oxygen Delivery Method room air room air Intake Visit Reasons: 3 M [employer] Required: No Accompanied by: Self Allergies azithromycin Allergy (Mild, Verified 04/15/24 08:11) Nausea Penicillins Allergy (Verified 04/15/24 08:11) Itching acetaminophen (From Midrin) Adverse Reaction (Mild, Verified 04/15/24 08:11) headache dichloralphenazone (From Midrin) Adverse Reaction (Mild, Verified 04/15/24 08:11) headache isometheptene (From Midrin) Adverse Reaction (Mild, Verified 04/15/24 08:11) headache metronidazole (From Flagyl) Adverse Reaction (Verified 04/15/24 08:11) Vomiting Medications ???Medication ???Instructions ???Recorded ???Confirmed ???Type ketoconazole 2 % topical cream applic topical 12/08/22 04/15/24 History levothyroxine 112 mcg tablet mcg 12/08/22 04/15/24 History propranolol 160 mg capsule,24 mg PO 12/08/22 04/15/24 History hr,extended release temazepam 15 mg capsule mg 12/08/22 04/15/24 History alprazolam 0.5 mg tablet 0.5 mg PO DAILY PRN 08/22/23 04/15/24 History citalopram 20 mg tablet mg PO 08/22/23 04/15/24 History levonorgestrel (Mirena) intrauterine 08/22/23 04/15/24 History montelukast 10 mg tablet mg PO 08/22/23 04/15/24 History primidone 250 mg tablet mg PO BID 08/22/23 04/15/24 History fluticasone propionate 50 spray intranasal PRN 08/29/23 04/15/24 History mcg/actuation nasal spray,suspension albuterol sulfate 90 mcg/actuation 2 puff inhalation Q4H PRN 10/04/23 04/15/24 Rx aerosol inhaler (ProAir HFA) shortness of breath or wheezing #3 ea budesonide-formotero l HFA 160 2 inh inhalation BID #1 ea 10/04/23 04/15/24 Rx mcg-4.5 mcg/actuation aerosol inhaler (Symbicort) cholecalciferol (vitamin D3) 50 50 mcg PO DAILY 10/04/23 04/15/24 History mcg (2,000 unit) capsule spacer #1 ea 10/04/23 04/15/24 Rx Nebulizer machine #1 ea 03/15/24 04/15/24 Rx ipratropium 0.5 mg-albuterol 3 mg 3 ml inhalation Q4H PRN PRN SOB 03/15/24 04/15/24 Rx (2.5 mg base)/3 mL nebulization /OR WHEEZING #180 mL soln loratadine 10 mg tablet 10 mg PO DAILY PRN 04/15/24 04/15/24 History promethazine 12.5 mg tablet mg PO PRN 04/15/24 04/15/24 History PFSH Medical History (Reviewed 04/15/24 @ 08:2 (more content not included)... Normal [facility] CBC W/Diff, Automatedon 11-2 0-2023 Absolute Lymph 1.87 X10 3/uL Normal 0.83-4.51 [facility] Comment on above: Performed By: #### L 506.0400, L500.4100, L501.9520, L100.0100, L501.9985, L500.4050 #### [facility] [address] [place], [address] Absolute Neut 4.1 X10 3/uL Normal 2.0-7.7 [facility] Comment on above: Performed By: #### L 506.0400, L500.4100, L501.9520, L100.0100, L501.9985, L500.4050 #### [facility] [address] [place], [address] Basophils/100 WBC (Bld) 1.0 % Normal 0-1 W [facility] Comment on above: Performed By: #### L 506.0400, L500.4100, L501.9520, L100.0100, L501.9985, L500.4050 #### [facility] [address] [place], [address] Eosinophils/100 WBC (Bld) 1.6 % Normal 0-5 [facility] Comment on above: Performed By: #### L 506.0400, L500.4100, L501.9520, L100.0100, L501.9985, L500.4050 #### [facility] [address] [place], [address] Erythrocyte distribution width (RBC) [Ratio] 12.7 % Normal 11.6-14.6 [facility] Comment on above: Performed By: #### L 506.0400, L500.4100, L501.9520, L100.0100, L501.9985, L500.4050 #### [facility] [address] [place], [address] Hematocrit (Bld) [Volume fraction] 42.5 % Normal 37-47 [facility] Comment on above: Performed By: #### L 506.0400, L500.4100, L501.9520, L100.0100, L501.9985, L500.4050 #### [facility] [address] [place], [address] Hemoglobin (Bld) [Mass/Vol] 14.1 g/dL Normal 12.0-15.0 [facility] Comment on above: Performed By: #### L 506.0400, L500.4100, L501.9520, L100.0100, L501.9985, L500.4050 #### [facility] [address] [facility] [place], [address] IG% 0.600 Normal 0.0-0.9 [facility] Comment on above: Result Comment: IG% - Immature Granulocytes (promyelocytes, myelocytes and metamyelocytes) > 1% indicates that a LEFT SHIFT is Present. Performed By: #### L 506.0400, L500.4100, L501.9520, L100.0100, L501.9985, L500.4050 #### [facility] [address] [place], [address] Lymphocytes/100 WBC (Bld) 27.2 % Normal 19-41 [facility] Comment on above: Performed By: #### L 506.0400, L500.4100, L501.9520, L100.0100, L501.9985, L500.4050 #### [facility] [address] [facility] [place], [address] MCH (RBC) [Entitic mass] 33.3 pg High 27.0-32.0 [facility] Comment on above: Performed By: #### L 506.0400, L500.4100, L501.9520, L100.0100, L501.9985, L500.4050 #### [facility] [address] [facility] [place], [address] MCHC (RBC) [Mass/Vol] 33.2 g/dL Normal 32-36 [facility] Comment on above: Performed By: #### L 506.0400, L500.4100, L501.9520, L100.0100, L501.9985, L500.4050 #### [facility] [address] [place], [address] MCV (RBC) [Entitic vol] 100.5 fL High 81-99 W [facility] Comment on above: Performed By: #### L 506.0400, L500.4100, L501.9520, L100.0100, L501.9985, L500.4050 #### [facility] [address] [place], [address] Monocytes/100 WBC (Bld) 10.6 % High 0-10 W [facility] Comment on above: Performed By: #### L 506.0400, L500.4100, L501.9520, L100.0100, L501.9985, L500.4050 #### [facility] [address] [place], [address] Neutrophils/100 WBC (Bld) 59.0 % Normal 47-70 [facility] Comment on above: Performed By: #### L 506.0400, L500.4100, L501.9520, L100.0100, L501.9985, L500.4050 #### [facility] [address] [place], [address] Nucleated RBC (Bld) [#/Vol] 0 10*3/uL Normal 0-5 [facility] Comment on above: Performed By: #### L 506.0400, L500.4100, L501.9520, L100.0100, L501.9985, L500.4050 #### [facility] [address] [place], [address] Platelet mean volume (Bld) [Entitic vol] 10.2 fL Normal 6.2-12.0 [facility] Comment on above: Performed By: #### L 506.0400, L500.4100, L501.9520, L100.0100, L501.9985, L500.4050 #### [facility] [address] [place], [address] Platelets (Bld) [#/Vol] 273 10*3/uL Normal 150-450 [facility] Comment on above: Performed By: #### L 506.0400, L500.4100, L501.9520, L100.0100, L501.9985, L500.4050 #### [facility] [address] [place], [address] RBC (Bld) [#/Vol] 4.23 10*6/uL Normal 4.2-5.4 [facility] Comment on above: Performed By: #### L 506.0400, L500.4100, L501.9520, L100.0100, L501.9985, L500.4050 #### [facility] [address] [place], [address] RDW SD 46.8 fl High 35.1-43.9 [facility] Comment on above: Performed By: #### L 506.0400, L500.4100, L501.9520, L100.0100, L501.9985, L500.4050 #### [facility] [address] [place], [address] WBC (Bld) [#/Vol] 6.9 10*3/uL Normal 4.4-11.0 [facility] Comment on above: Performed By: #### L 506.0400, L500.4100, L501.9520, L100.0100, L501.9985, L500.4050 #### [facility] [address] [place], [address] Comprehensive Metabolic Prof scon 04-03-2024 Albumin [Mass/Vol] 3.6 g/dL Normal 3.2-5.0 [facility] Comment on above: Performed By: #### L 506.0400, L500.4100, L501.9520, L100.0100, L501.9985, L500.4050 #### [facility] [address] [place], [address] Albumin/Globulin [Mass ratio] 1.2 {ratio} Normal 0.9-2.4 [facility] Comment on above: Performed By: #### L 506.0400, L500.4100, L501.9520, L100.0100, L501.9985, L500.4050 #### [facility] [address] [place], [address] ALK P 79 U/L Normal 45-117 [facility] Comment on above: Performed By: #### L 506.0400, L500.4100, L501.9520, L100.0100, L501.9985, L500.4050 #### [facility] [address] [place], [address] ALT [Catalytic activity/Vol] 26 U/L Normal 13-56 [facility] Comment on above: Performed By: #### L 506.0400, L500.4100, L501.9520, L100.0100, L501.9985, L500.4050 #### [facility] [address] [place], [address] AST [Catalytic activity/Vol] 14 U/L Low 15-37 [facility] Comment on above: Performed By: #### L 506.0400, L500.4100, L501.9520, L100.0100, L501.9985, L500.4050 #### [facility] [address] [place], [address] Bilirubin [Mass/Vol] 0.30 mg/dL Normal 0.20-1.00 [facility] Comment on above: Result Comment: For patients on eltrombopag therapy, use of Dimension [place] TBIL is not recommended. Performed By: #### L 506.0400, L500.4100, L501.9520, L100.0100, L501.9985, L500.4050 #### [facility] [address] [place], [address] BUN/CRE 24.6 RATIO High 10-20 [facility] Comment on above: Performed By: #### L 506.0400, L500.4100, L501.9520, L100.0100, L501.9985, L500.4050 #### [facility] [address] [place], [address] CA,Total 9.0 mg/dL Normal 8.5-10.1 [facility] Comment on above: Performed By: #### L 506.0400, L500.4100, L501.9520, L100.0100, L501.9985, L500.4050 #### [facility] [address] [place], [address] Chloride [Moles/Vol] 108 mmol/L High 98-107 [facility] Comment on above: Performed By: #### L 506.0400, L500.4100, L501.9520, L100.0100, L501.9985, L500.4050 #### [facility] [address] [place], [address] CO2 [Moles/Vol] 26.0 mmol/L Normal 21.0-32.0 [facility] Comment on above: Performed By: #### L 506.0400, L500.4100, L501.9520, L100.0100, L501.9985, L500.4050 #### [facility] [address] [place], [address] Creatinine [Mass/Vol] 0.69 mg/dL Normal 0.55-1.02 [facility] Comment on above: Result Comment: The validity of the calculated GFR GFRAA in patients over 70 years has not been determined. Clinical correlation is essential. Performed By: #### L 506.0400, L500.4100, L501.9520, L100.0100, L501.9985, L500.4050 #### [facility] [address] [place], [address] EST GFR - AA 113 mL/min Normal >60 [facility] Comment on above: Result Comment: Afri can [place] GFR Calc Performed By: #### L 506.0400, L500.4100, L501.9520, L100.0100, L501.9985, L500.4050 #### [facility] [address] [place], [address] GAP 6 Normal 5-15 [facility] Comment on above: Performed By: #### L 506.0400, L500.4100, L501.9520, L100.0100, L501.9985, L500.4050 #### [facility] [address] [place], [address] GFR/1.73 sq M.predicted among non-blacks MDRD (S/P/Bld) [Vol rate/Area] 93 mL/min/{1.73_m2} Normal >60 [facility] Comment on above: Result Comment: Non- GFR Calc Performed By: #### L 506.0400, L500.4100, L501.9520, L100.0100, L501.9985, L500.4050 #### [facility] [address] [place], [address] Globulin (S) [Mass/Vol] 3.1 g/dL Normal 2.2-4.2 W [facility] Comment on above: Performed By: #### L 506.0400, L500.4100, L501.9520, L100.0100, L501.9985, L500.4050 #### [facility] [address] [place], [address] Glucose [Mass/Vol] 108 mg/dL High 74-106 [facility] Comment on above: Result Comment: Fast ing Glucose result from 100 to 125 mg/dL suggests IMPAIRED HOMEOSTASIS per A.D.A. criteria. Performed By: #### L 506.0400, L500.4100, L501.9520, L100.0100, L501.9985, L500.4050 #### [facility] [address] [place], [address] Potassium [Moles/Vol] 4.2 mmol/L Normal 3.5-5.1 [facility] Comment on above: Performed By: #### L 506.0400, L500.4100, L501.9520, L100.0100, L501.9985, L500.4050 #### [facility] [address] [place], [address] Sodium [Moles/Vol] 140 mmol/L Normal 136-145 [facility] Comment on above: Performed By: #### L 506.0400, L500.4100, L501.9520, L100.0100, L501.9985, L500.4050 #### [facility] [address] [place], [address] T PROT 6.7 g/dL Normal 6.4-8.2 [facility] Comment on above: Performed By: #### L 506.0400, L500.4100, L501.9520, L100.0100, L501.9985, L500.4050 #### [facility] [address] [place], [address] Urea nitrogen [Mass/Vol] 17 mg/dL Normal 7-18 [facility] Comment on above: Performed By: #### L 506.0400, L500.4100, L501.9520, L100.0100, L501.9985, L500.4050 #### [facility] [address] [place], [address] Hemoglobin A1con 04-03-2024 HbA1c (Bld) [Mass fraction] 5.8 % High 3.8-5.6 [facility] Comment on above: Order Comment: DR QUE BUSTAMANTE ADDED AN A1C. RANGLE Result Comment: Norm al < 5.7 % Prediabetic 5.7 - 6.4 % Diabetic >or= 6.5 % Please note range changes. Performed By: #### L 506.0400, L500.4100, L501.9520, L100.0100, L501.9985, L500.4050 #### [facility] [address] [place], [address] Lipid Profileon 04-03-2024 Cholesterol [Mass/Vol] 233 mg/dL High 200 [facility] Comment on above: Result Comment: <200 mg/dL Desirable 200-240 mg/dL Borderline >240 mg/dL High Risk Performed By: #### L 506.0400, L500.4100, L501.9520, L100.0100, L501.9985, L500.4050 #### [facility] [address] [place], [address] Cholesterol in HDL [Mass/Vol] 76 mg/dL Normal [facility] Comment on above: Result Comment: The drugs N-Acetylcysteine and Metamizole may falsely depress this assay. Reference Range HDL <40 mg/dL Low HDL Cholesterol HDL >or= 60 mg/dL High HDL Cholesterol Performed By: #### L 506.0400, L500.4100, L501.9520, L100.0100, L501.9985, L500.4050 #### [facility] [address] [place], [address] Cholesterol in LDL [Mass/Vol] 138 mg/dL High 0-130 [facility] Comment on above: Performed By: #### L 506.0400, L500.4100, L501.9520, L100.0100, L501.9985, L500.4050 #### [facility] [address] [place], [address] Cholesterol in VLDL [Mass/Vol] 19 mg/dL Normal 5-40 [facility] Comment on above: Performed By: #### L 506.0400, L500.4100, L501.9520, L100.0100, L501.9985, L500.4050 #### [facility] [address] [place], [address] Triglyceride [Mass/Vol] 93 mg/dL Normal W [facility] Comment on above: Result Comment: The drugs N-Acetylcysteine and Metamizole may falsely depress this assay. Serum Triglycerides Reference Interval Normal <150 mg/dL Borderline high 150 - 199 mg/dL High 200 - 499 mg/dL Very High > or = 500 mg/dL Performed By: #### L 506.0400, L500.4100, L501.9520, L100.0100, L501.9985, L500.4050 #### [facility] [address] [facility] [place], [address] T4 Free Directon 04-03-2024 T4 FREE DIRECT 0.92 ng/dL Normal 0.76-1.46 [facility] Comment on above: Performed By: #### L 506.0400, L500.4100, L501.9520, L100.0100, L501.9985, L500.4050 #### [facility] [address] [facility] [place], [address] Thyroid Stim Hormone (TSH)on 04-03-2024 TSH 2.510 uIU/mL Normal 0.358-3.740 [facility] Comment on above: Performed By: #### L 506.0400, L500.4100, L501.9520, L100.0100, L501.9985, L500.4050 #### [facility] [place], [address] XR Chest PA and Lateralon IMPRESSION: No acute radiographic abnormality. Referral Clerk: EVARISTO Transcribe Date/Time: Mar 14 2024 8:22A Dictated by : ONDINA RIVERA MD This examination was interpreted and the report reviewed and electronically signed by: ONDINA RIVERA MD on Mar 14 2024 8:22AM EST DIVISION OF RADIOLOGY * * *Final Report* * * DATE OF EXAM: Mar 14 2024 8:12AM WOX 5291 - XR CHEST 2V FRONTAL/LAT / PROCEDURE REASON: Wheezing * * * * Physician Interpretation * * * * EXAMINATION: CHEST RADIOGRAPH (2 VIEW FRONTAL & LATERAL) CLINICAL HISTORY: Wheezing MQ: XC2_6 EXAM DATE/TIME: 03/14/2024 8:12 AM COMPARISON: No relevant prior studies available. RESULT: Lines, tubes, and devices: None. Lungs and pleura: No consolidation. No lung mass. No pleural effusion. No pneumothorax. Cardiomediastinal silhouette: Normal cardiomediastinal silhouette. Bones and soft tissues: Unremarkable. DIVISION OF RADIOLOGY Provider, [facility] - 03/14/2024 * * *Final Report* * * DATE OF EXAM: Mar 14 2024 8:12AM WOX 5291 - XR CHEST 2V FRONTAL/LAT / PROCEDURE REASON: Wheezing * * * * Physician Interpretation * * * * EXAMINATION: CHEST RADIOGRAPH (2 VIEW FRONTAL & LATERAL) CLINICAL HISTORY: Wheezing MQ: XC2_6 EXAM DATE/TIME: 03/14/2024 8:12 AM COMPARISON: No relevant prior studies available. RESULT: Lines, tubes, and devices: None. Lungs and pleura: No consolidation. No lung mass. No pleural effusion. No pneumothorax. Cardiomediastinal silhouette: Normal cardiomediastinal silhouette. Bones and soft tissues: Unremarkable. IMPRESSION IMPRESSION: No acute radiographic abnormality. Referral Clerk: EVARISTO Transcribe Date/Time: Mar 14 2024 8:22A Dictated by : ONDINA RIVERA MD This examination was interpreted and the report reviewed and electronically signed by: ONDINA RIVERA MD on Mar 14 2024 8:22AM EST [facility] Radiology Study observation (narrative) Alok beltran [facility] XR Chest PA and LateralOrder ed By: [facility] Provider on 03-14-2024 [facility] Serum or plasma thyroid stim ulating hormone (TSH) measurement (units/volume)Ordered By: Taryn Kim on 09-12-2023 TSH Qn 2.54 uIU/mL 0.358-3.74 [facility] Absolute lymphocyte countOrd ered By: Ky Asencio on 08-29-2023 Lymphocytes Auto (Unsp spec) [#/Vol] 2.11 10*3/uL 0.83-4.51 [facility] Alternaria alternata IgE ser umOrdered By: Ky Asencio on 08-29-2023 A. alternata IgE Qn (S) <0.10 kU/L Class 0 W [facility] Automated lymphocyte count a s percentage of total leukocytesOrdered By: Ky Asencio on 08-29-2023 Lymphocytes/100 WBC Auto (Unsp spec) 34.2 % 19-41 [facility] Basophil percentageOrdered B y: Ky Asencio on 08-29-2023 Basophils/100 WBC (Bld) 1.1 % 0-1 W [facility] Eosinophils/100 WBC (Bld) 2.6 % 0-5 [facility] Hemoglobin (Bld) [Mass/Vol] 13.6 g/dL 12.0-15.0 [facility] Monocytes/100 WBC (Bld) 10.0 % 0-10 [facility] Neutrophils (Bld) [#/Vol] 3.2 10*3/uL 2.0-7.7 [facility] Neutrophils/100 WBC (Bld) 51.8 % 47-70 [facility] WBC (Bld) [#/Vol] 6.2 10*3/uL 4.4-11.0 [facility] Determination of erythrocyte mean corpuscular volume (MCV)Ordered By: Ky Asencio on 08-29-2023 MCV (RBC) [Entitic vol] 98.6 fL 81-99 W [facility] Erythrocyte distribution wid th ratioOrdered By: Ky Asencio on 08-29-2023 Erythrocyte distribution width (RBC) [Ratio] 12.3 % 11.6-14.6 [facility] Erythrocyte distribution wid th standard deviationOrdered By: Ky Asencio on 08-29-2023 Erythrocyte distribution width (RBC) [Entitic vol] 44.5 fL 35.1-43.9 [facility] Hematocrit Auto (Bld) [Volum e fraction]Ordered By: Ky Asencio on 08-29-2023 Hematocrit (Bld) [Volume fraction] 41.3 % 37-47 [facility] Immature granulocytes/100 WB C Auto (Bld)Ordered By: Ky Asencio on 08-29-2023 Immature granulocytes/100 WBC (Bld) 0.300 % 0.0-0.9 [facility] Comment on above: IG% - Immature Granu locytes (promyelocytes, myelocytes and metamyelocytes) > 1% indicates that a LEFT SHIFT is Present. Laboratory - Hematology and Cell countsOrdered By: Ky Asencio on 08-29-2023 MCH (RBC) [Entitic mass] 32.5 pg 27.0-32.0 [facility] MCHC (RBC) [Mass/Vol] 32.9 g/dL 32-36 [facility] Nucleated RBC/100 WBC (Bld) [Ratio] 0 % 0-5 [facility] Platelet mean volume (Bld) [Entitic vol] 10.0 fL 6.2-12.0 [facility] Platelets (Bld) [#/Vol] 281 10*3/uL 150-450 [facility] Mountain cedar IgEOrdered By : Ky Asencio on 08-29-2023 Mountain Juniper IgE Qn (S) 0.16 kU/L Class 0/I [facility] No Panel InformationOrdered By: Ky Asencio on 08-29-2023 Cat Hair Allergen <0.10 kU/L Class 0 [facility] Common Ragweed (Short) Allergen 0.17 kU/L Class 0/I [facility] Immunoglobulin E 55 IU/mL 6-495 [facility] Immunoglobulin E 51 IU/mL 6-495 [facility] Comment on above: Performed at: [address] [id number] Director: Pamela Barcenas MD, Phone: [phone] Maple ([place]) Allergen IgE Ab 0.16 kU/L Class 0/I [facility] Mouse Urine Allergen IgE Antibody <0.10 kU/L Class 0 [facility] Comment on above: Performed at: - [address] [id number] Director: Pamela Barcenas MD, Phone: [phone] [facility] Comment Comment . [facility] Comment on above: Levels of Specific I gE Class Description of Class ----- < 0.10 0 Negative 0.10 - 0.31 0/I Equivocal/Low 0.32 - 0.55 I Low 0.56 - 1.40 II Moderate 1.41 - 3.90 III High 3.91 - 19.00 IV Very High 19.01 - 100.00 V Very High >100.00 Very High [place] Tree Allergen 0.12 kU/L Class 0/I W [facility] Pecan nut IgE serumOrdered B y: Ky Asencio on 08-29-2023 Pecan or [place] Nut IgE Qn (S) 0.13 kU/L Class 0/I [facility] Penicillium notatum IgE seru mOrdered By: Ky Asencio on 08-29-2023 P. notatum IgE Qn (S) <0.10 kU/L Class 0 [facility] RBC Auto (Bld) [#/Vol]Ordere d By: Ky Asencio on 08-29-2023 RBC (Bld) [#/Vol] 4.19 10*6/uL 4.2-5.4 [facility] Rough pigweed specific IgE a ntibody assayOrdered By: Ky Asencio on 08-29-2023 Rough Pigweed IgE Qn (S) 0.12 kU/L Class 0/I [facility] Italian thistle IgE serumOrd ered By: Ky Asencio on 08-29-2023 Saltwort IgE Qn (S) 0.13 kU/L Class 0/I [facility] Serum Hong Konger sycamore IgE antibody assay (units/volume)Ordered By: Ky Asencio on 08-29-2023 Hong Konger [place] IgE Qn (S) 0.14 kU/L Class 0/I [facility] Serum Aspergillus flavus ant ibody detection by immunodiffusionOrdered By: Ky Asencio on 08-29-2023 A. flavus Ab Immune diff Ql (S) Negative Neg:<1:1 [facility] Serum Aspergillus fumigatus IgE antibody assay (units/volume)Ordered By: Ky Asencio on 08-29-2023 A. fumigatus IgE Qn (S) <0.10 kU/L Class 0 [facility] Serum Aspergillus fumigatus antibody detection by immunodiffusionOrdered By: Ky Asencio on 08-29-2023 A. fumigatus Ab Immune diff Ql (S) Negative Neg:<1:1 [facility] Serum Aspergillus niger anti body detection by immunodiffusionOrdered By: Ky Asencio on 08-29-2023 A. niger Ab Immune diff Ql (S) Negative Neg:<1:1 [facility] Serum Bermuda grass IgE anti body assay (units/volume)Ordered By: Ky Asencio on 08-29-2023 Bermuda grass IgE Qn (S) 0.15 kU/L Class 0/I [facility] Serum Cladosporium herbarum IgE antibody assay (units/volume)Ordered By: Ky Asencio on 08-29-2023 C. herbarum IgE Qn (S) <0.10 kU/L Class 0 [facility] Serum Dermatophagoides farin ae specific IgE antibody assay (units/volume)Ordered By: Ky Asencio on 08-29-2023 Hong Konger house dust mite IgE Qn (S) 0.24 kU/L Class 0/I [facility] Serum house dust mi te IgE antibody assay (units/volume)Ordered By: Ky Asencio on 08-29-2023 house dust mite IgE Qn (S) 0.19 kU/L Class 0/I [facility] Serum Periplaneta americana IgE antibody assay (units/volume)Ordered By: Ky Asencio on 08-29-2023 Hong [place]er Cockroach IgE Qn (S) 0.41 kU/L Class I [facility] Serum birch specific IgE ant ibody assayOrdered By: Ky Asencio on 08-29-2023 Silver Birch IgE Qn (S) 0.12 kU/L Class 0/I [facility] Serum black walnut IgE antib funmi assay (units/volume)Ordered By: Ky Asencio on 08-29-2023 Black Avenel IgE Qn (S) 0.15 kU/L Class 0/I W [facility] Serum cottonwood IgE antibod y assay (units/volume)Ordered By: Ky Asencio on 08-29-2023 Motley IgE Qn (S) 0.19 kU/L Class 0/I [facility] Serum dog epithelium IgE ant ibody assay (units/volume)Ordered By: Ky Asencio on 08-29-2023 Dog epithelium IgE Qn (S) <0.10 kU/L Class 0 [facility] Serum sheep sorrel IgE antib funmi assay (units/volume)Ordered By: Ky Asencio on 08-29-2023 Sheep [place] IgE Qn (S) 0.12 kU/L Class 0/I [facility] Serum titi IgE antibody a ssay (units/volume)Ordered By: yK Asencio on 08-29-2023 Titi IgE Qn (S) 0.13 kU/L Class 0/I [facility] Serum white mercy IgE antibody assay (units/volume)Ordered By: Ky Asencio on 08-29-2023 White Mercy IgE Qn (S) 0.17 kU/L Class 0/I [facility] Serum white elm IgE antibody assay (units/volume)Ordered By: Ky Asencio on 08-29-2023 White Elm IgE Qn (S) 0.14 kU/L Class 0/I [facility] Serum white mulberry IgE ant ibody assay (units/volume)Ordered By: Ky Asencio on 08-29-2023 White mulberry IgE Qn (S) 0.11 kU/L Class 0/I [facility] Absolute lymphocyte countOrd ered By: Francisca Yanez on 06-08-2023 Lymphocytes Auto (Unsp spec) [#/Vol] 1.04 10*3/uL 0.83-4.51 [facility] Automated lymphocyte count a s percentage of total leukocytesOrdered By: Francisca Yanez on 06-08-2023 Lymphocytes/100 WBC Auto (Unsp spec) 11.7 % 19-41 [facility] Basophil percentageOrdered B y: Francisca Yanez on 06-08-2023 Basophils/100 WBC (Bld) 0.4 % 0-1 W [facility] Chloride [Moles/Vol] 106 mmol/L 98-107 [facility] Eosinophils/100 WBC (Bld) 5.4 % 0-5 [facility] Glucose [Mass/Vol] 182 mg/dL 74-106 [facility] Comment on above: Fasting Glucose resu lt greater than or equal to 126 mg/dL suggests DIABETES MELLITUS per A.D.A. criteria. Hemoglobin (Bld) [Mass/Vol] 14.6 g/dL 12.0-15.0 [facility] Monocytes/100 WBC (Bld) 3.3 % 0-10 W [facility] Neutrophils (Bld) [#/Vol] 7.0 10*3/uL 2.0-7.7 [facility] Neutrophils/100 WBC (Bld) 78.5 % 47-70 [facility] Potassium [Moles/Vol] 3.7 mmol/L 3.5-5.1 [facility] Sodium [Moles/Vol] 138 mmol/L 136-145 [facility] WBC (Bld) [#/Vol] 8.9 10*3/uL 4.4-11.0 [facility] Determination of erythrocyte mean corpuscular volume (MCV)Ordered By: Francisca Yanez on 06-08-2023 MCV (RBC) [Entitic vol] 98.4 fL 81-99 W [facility] Erythrocyte distribution wid th ratioOrdered By: Francisca Yanez on 06-08-2023 Erythrocyte distribution width (RBC) [Ratio] 12.6 % 11.6-14.6 [facility] Erythrocyte distribution wid th standard deviationOrdered By: Francisca Yanez on 06-08-2023 Erythrocyte distribution width (RBC) [Entitic vol] 45.6 fL 35.1-43.9 [facility] Hematocrit Auto (Bld) [Volum e fraction]Ordered By: Francisca Yanez on 06-08-2023 Hematocrit (Bld) [Volume fraction] 43.9 % 37-47 [facility] Immature granulocytes/100 WB C Auto (Bld)Ordered By: Francisca Yanez on 06-08-2023 Immature granulocytes/100 WBC (Bld) 0.700 % 0.0-0.9 [facility] Comment on above: IG% - Immature Granu locytes (promyelocytes, myelocytes and metamyelocytes) > 1% indicates that a LEFT SHIFT is Present. Laboratory - Chemistry and C hemistry - challengeOrdered By: Francisca Yanez on 06-08-2023 CO2 [Moles/Vol] 25.0 mmol/L 21.0-32.0 [facility] Urea nitrogen/Creatinine [Mass ratio] 10.3 mg/mg 10-20 [facility] Laboratory - Hematology and Cell countsOrdered By: Francisca Yanez on 06-08-2023 MCH (RBC) [Entitic mass] 32.7 pg 27.0-32.0 [facility] MCHC (RBC) [Mass/Vol] 33.3 g/dL 32-36 [facility] Nucleated RBC/100 WBC (Bld) [Ratio] 0 % 0-5 [facility] Platelets (Bld) [#/Vol] 290 10*3/uL 150-450 [facility] No Panel InformationOrdered By: Francisca Yanez on 06-08-2023 D-Dimer Quantitative (PE/DVT) < 0.27 FEU/ug/m 0.27-0.49 [facility] Comment on above: NORMAL D-Dimer level (<0.50) indicates no DVT or PE. Estimated Creatinine Clearance Calc 77.99 ml/min [facility] Estimated GFR (MDRD) Amer 86 mL/min >60 [facility] Comment on above: GFR Calc Estimated GFR (MDRD) Non-Af Amer 71 mL/min >60 [facility] Comment on above: Non- GFR Calc Troponin I High Sensitivity 3 pg/mL 3.0-54.0 [facility] Comment on above: Please Note: New Bibi t Units and Gender Specific Reference Ranges. For more information see Policy Stat Procedure [place] High Sensitivity Troponin (TNIH) and attachments. Platelet mean volume Gino-Ec ker (Bld) [Entitic vol]Ordered By: Francisca Yanez on 06-08-2023 Platelet mean volume (Bld) [Entitic vol] 9.9 fL 6.2-12.0 [facility] RBC Auto (Bld) [#/Vol]Ordere d By: Francisca Yanez on 06-08-2023 RBC (Bld) [#/Vol] 4.46 10*6/uL 4.2-5.4 [facility] Serum or plasma calcium jovana urement (mass/volume)Ordered By: Francisca Yanez on 06-08-2023 Calcium [Mass/Vol] 9.4 mg/dL 8.5-10.1 [facility] Serum or plasma creatinine m easurement (mass/volume)Ordered By: Francisca Yanez on 06-08-2023 Creatinine [Mass/Vol] 0.87 mg/dL 0.55-1.02 [facility] Comment on above: The validity of the calculated GFR & GFRAA in patients over 70 years has not been determined. Clinical correlation is essential. Serum or plasma urea nitroge n measurement (mass/volume)Ordered By: Francisca Yanez on 06-08-2023 Urea nitrogen [Mass/Vol] 9 mg/dL 7-18 [facility] Thin prep Papanicolaou smear with manual screeningOrdered By: Francisca Yanez on 06-08-2023 Thin prep Papanicolaou smear with manual screening 7 5-15 [facility] Absolute lymphocyte countOrd ered By: Angelica Trivedi on 12-08-2022 Lymphocytes Auto (Unsp spec) [#/Vol] 2.20 10*3/uL 0.83-4.51 [facility] Basophil percentageOrdered B y: Angelica Trivedi on 12-08-2022 Basophils/100 WBC (Bld) 0.8 % 0-1 [facility] Chloride [Moles/Vol] 103 mmol/L 98-107 [facility] Eosinophils/100 WBC (Bld) 2.4 % 0-5 [facility] Glucose [Mass/Vol] 112 mg/dL 74-106 [facility] Comment on above: Fasting Glucose resu lt from 100 to 125 mg/dL suggests IMPAIRED HOMEOSTASIS per A.D.A. criteria. Neutrophils (Bld) [#/Vol] 5.0 10*3/uL 2.0-7.7 [facility] Neutrophils/100 WBC (Bld) 60.1 % 47-70 [facility] Potassium [Moles/Vol] 4.1 mmol/L 3.5-5.1 [facility] Sodium [Moles/Vol] 138 mmol/L 136-145 [facility] WBC (Bld) [#/Vol] 8.3 10*3/uL 4.4-11.0 [facility] Blood erythrocytes count (nu mber/volume)Ordered By: Angelica Trivedi on 12-08-2022 RBC (Bld) [#/Vol] 4.63 10*6/uL 4.2-5.4 [facility] Blood hemoglobin measurement (mass/volume)Ordered By: Angelica Trivedi on 12-08-2022 Hemoglobin (Bld) [Mass/Vol] 15.4 g/dL 12.0-15.0 [facility] Blood lymphocytes/100 leukoc ytesOrdered By: Angelica Trivedi on 12-08-2022 Lymphocytes/100 WBC (Bld) 26.5 % 19-41 [facility] Blood monocytes/100 leukocyt esOrdered By: Angelica Trivedi on 12-08-2022 Monocytes/100 WBC (Bld) 9.8 % 0-10 W [facility] Blood platelet mean volumeOr dered By: Angelica Trivedi on 12-08-2022 Platelet mean volume (Bld) [Entitic vol] 10.4 fL 6.2-12.0 [facility] Determination of erythrocyte mean corpuscular volume (MCV)Ordered By: Angelica Trivedi on 12-08-2022 MCV (RBC) [Entitic vol] 98.9 fL 81-99 W [facility] Hematocrit Auto (Bld) [Volum e fraction]Ordered By: Angelica Trivedi on 12-08-2022 Hematocrit (Bld) [Volume fraction] 45.8 % 37-47 [facility] Laboratory - Chemistry and C hemistry - challengeOrdered By: Angelica Trivedi on 12-08-2022 CO2 [Moles/Vol] 30.0 mmol/L 21.0-32.0 [facility] Magnesium [Mass/Vol] 2.4 mg/dL 1.6-2.6 [facility] Urea nitrogen/Creatinine [Mass ratio] 19.3 mg/mg 10-20 [facility] Laboratory - Hematology and Cell countsOrdered By: Angelica Trivedi on 12-08-2022 Erythrocyte distribution width (RBC) [Entitic vol] 45.7 fL 35.1-43.9 [facility] Erythrocyte distribution width (RBC) [Ratio] 12.5 % 11.6-14.6 [facility] Immature granulocytes/100 WBC (Bld) 0.400 % 0.0-0.9 [facility] Comment on above: IG% - Immature Granu locytes (promyelocytes, myelocytes and metamyelocytes) > 1% indicates that a LEFT SHIFT is Present. MCH (RBC) [Entitic mass] 33.3 pg 27.0-32.0 [facility] Nucleated RBC/100 WBC (Bld) [Ratio] 0 % 0-5 [facility] MCHC Auto (RBC) [Mass/Vol]Or dered By: Angelica Trivedi on 12-08-2022 MCHC (RBC) [Mass/Vol] 33.6 g/dL 32-36 [facility] No Panel InformationOrdered By: Angelica Trivedi on 12-08-2022 Troponin I High Sensitivity < 3 pg/mL 3.0-54.0 [facility] Comment on above: Please Note: New Bibi t Units and Gender Specific Reference Ranges. For more information see Policy Stat Procedure [place] High Sensitivity Troponin (TNIH) and attachments. Estimated Creatinine Clearance Calc 69.82 ml/min [facility] Estimated GFR (MDRD) Amer 107 mL/min >60 [facility] Comment on above: GFR Calc Estimated GFR (MDRD) Non-Af Amer 89 mL/min >60 [facility] Comment on above: Non- GFR Calc Platelets bldOrdered By: Mily Trivedi on 12-08-2022 Platelets (Bld) [#/Vol] 284 10*3/uL 150-450 [facility] Serum or plasma calcium jovana urement (mass/volume)Ordered By: Angelica Trivedi on 12-08-2022 Calcium [Mass/Vol] 9.1 mg/dL 8.5-10.1 [facility] Serum or plasma creatinine m easurement (mass/volume)Ordered By: Angelica Trivedi on 12-08-2022 Creatinine [Mass/Vol] 0.72 mg/dL 0.55-1.02 [facility] Comment on above: The validity of the calculated GFR & GFRAA in patients over 70 years has not been determined. Clinical correlation is essential. Serum or plasma urea nitroge n measurement (mass/volume)Ordered By: Angelica Trivedi on 12-08-2022 Urea nitrogen [Mass/Vol] 14 mg/dL 7-18 [facility] Thin prep Papanicolaou smear with manual screeningOrdered By: Angelica Trivedi on 12-08-2022 Thin prep Papanicolaou smear with manual screening 5 5-15 [facility] Absolute lymphocyte countOrd ered By: Dr. Kim on 06-16-2022 Lymphocytes Auto (Unsp spec) [#/Vol] 1.81 10*3/uL 0.83-4.51 [facility] Basophil percentageOrdered B y: Dr. Kim on 06-16-2022 Basophils/100 WBC (Bld) 1.0 % 0-1 [facility] Bilirubin [Mass/Vol] 0.20 mg/dL 0.20-1.00 [facility] Comment on above: For patients on eltr ombopag therapy, use of Dimension [place] TBIL is not recommended. Chloride [Moles/Vol] 105 mmol/L 98-107 [facility] Cholesterol [Mass/Vol] 240 mg/dL <200 [facility] Comment on above: <200 mg/dL Desirable 200-240 mg/dL Borderline >240 mg/dL High Risk Eosinophils/100 WBC (Bld) 3.1 % 0-5 [facility] Glucose [Mass/Vol] 106 mg/dL 74-106 [facility] Comment on above: Fasting Glucose resu lt from 100 to 125 mg/dL suggests IMPAIRED HOMEOSTASIS per A.D.A. criteria. Neutrophils (Bld) [#/Vol] 4.8 10*3/uL 2.0-7.7 [facility] Neutrophils/100 WBC (Bld) 62.7 % 47-70 [facility] Potassium [Moles/Vol] 4.1 mmol/L 3.5-5.1 [facility] Protein [Mass/Vol] 6.9 g/dL 6.4-8.2 [facility] Sodium [Moles/Vol] 139 mmol/L 136-145 [facility] Triglyceride [Mass/Vol] 137 mg/dL <199 [facility] Comment on above: The drugs N-Acetylcy steine and Metamizole may falsely depress this assay.Serum Triglycerides Reference Interval Normal <150 mg/dL Borderline high 150 - 199 mg/dL High 200 - 499 mg/dL Very High > or = 500 mg/dL WBC (Bld) [#/Vol] 7.6 10*3/uL 4.4-11.0 [facility] Blood erythrocytes count (nu mber/volume)Ordered By: Dr. Kim on 06-16-2022 RBC (Bld) [#/Vol] 4.47 10*6/uL 4.2-5.4 [facility] Blood hemoglobin measurement (mass/volume)Ordered By: Dr. Kim on 06-16-2022 Hemoglobin (Bld) [Mass/Vol] 14.8 g/dL 12.0-15.0 [facility] Blood lymphocytes/100 leukoc ytesOrdered By: Dr. Kim on 06-16-2022 Lymphocytes/100 WBC (Bld) 23.7 % 19-41 [facility] Blood monocytes/100 leukocyt esOrdered By: Dr. Kim on 06-16-2022 Monocytes/100 WBC (Bld) 9.2 % 0-10 W [facility] Blood platelet mean volumeOr dered By: Dr. Kim on 06-16-2022 Platelet mean volume (Bld) [Entitic vol] 10.5 fL 6.2-12.0 [facility] Determination of erythrocyte mean corpuscular volume (MCV)Ordered By: Dr. Kim on 06-16-2022 MCV (RBC) [Entitic vol] 102.5 fL 81-99 W [facility] Hematocrit Auto (Bld) [Volum e fraction]Ordered By: Dr. Kim on 06-16-2022 Hematocrit (Bld) [Volume fraction] 45.8 % 37-47 [facility] Laboratory - Chemistry and C hemistry - challengeOrdered By: Dr. Kim on 06-16-2022 ALP [Catalytic activity/Vol] 84 U/L 45-117 [facility] ALT [Catalytic activity/Vol] 43 U/L 13-56 [facility] CO2 [Moles/Vol] 29.0 mmol/L 21.0-32.0 [facility] Globulin (S) [Mass/Vol] 3.2 g/dL 2.2-4.2 W [facility] Urea nitrogen/Creatinine [Mass ratio] 16.4 mg/mg 10-20 [facility] Laboratory - Hematology and Cell countsOrdered By: Dr. Kim on 06-16-2022 Erythrocyte distribution width (RBC) [Entitic vol] 47.9 fL 35.1-43.9 [facility] Erythrocyte distribution width (RBC) [Ratio] 12.6 % 11.6-14.6 [facility] Immature granulocytes/100 WBC (Bld) 0.300 % 0.0-0.9 [facility] Comment on above: IG% - Immature Granu locytes (promyelocytes, myelocytes and metamyelocytes) > 1% indicates that a LEFT SHIFT is Present. MCH (RBC) [Entitic mass] 33.1 pg 27.0-32.0 [facility] Nucleated RBC/100 WBC (Bld) [Ratio] 0 % 0-5 [facility] MCHC Auto (RBC) [Mass/Vol]Or dered By: Dr. Kim on 06-16-2022 MCHC (RBC) [Mass/Vol] 32.3 g/dL 32-36 [facility] No Panel InformationOrdered By: Dr. Kim on 06-16-2022 Estimated GFR (MDRD) Amer 131 mL/min >60 [facility] Comment on above: GFR Calc Estimated GFR (MDRD) Non-Af Amer 108 mL/min >60 [facility] Comment on above: Non- GFR Calc Thyroid Stimulating Hormone (TSH) 1.99 uIU/mL 0.358-3.74 [facility] Platelets bldOrdered By: Dr. Kim on 06-16-2022 Platelets (Bld) [#/Vol] 287 10*3/uL 150-450 [facility] Serum or plasma albumin jovana urement (mass/volume)Ordered By: Dr. Kim on 06-16-2022 Albumin [Mass/Vol] 3.7 g/dL 3.2-5.0 [facility] Serum or plasma albumin/glob ulin mass ratioOrdered By: Dr. Kim on 06-16-2022 Albumin/Globulin [Mass ratio] 1.2 {ratio} 0.9-2.4 [facility] Serum or plasma calcium jovana urement (mass/volume)Ordered By: Dr. Kim on 06-16-2022 Calcium [Mass/Vol] 8.5 mg/dL 8.5-10.1 [facility] Serum or plasma cholesterol in HDL measurement (mass/volume)Ordered By: Dr. Kim on 06-16-2022 Cholesterol in HDL [Mass/Vol] 60 mg/dL >40 [facility] Comment on above: The drugs N-Acetylcy steine and Metamizole may falsely depress this assay. Reference Range HDL <40 mg/dL Low HDL Cholesterol HDL >or= 60 mg/dL High HDL Cholesterol Serum or plasma cholesterol in VLDL measurement (mass/volume)Ordered By: Dr. Kim on 06-16-2022 Cholesterol in VLDL [Mass/Vol] 27 mg/dL 5-40 [facility] Serum or plasma creatinine m easurement (mass/volume)Ordered By: Dr. Kim on 06-16-2022 Creatinine [Mass/Vol] 0.61 mg/dL 0.55-1.02 [facility] Comment on above: The validity of the calculated GFR & GFRAA in patients over 70 years has not been determined. Clinical correlation is essential. Serum or plasma low density lipoprotein (LDL) cholesterol measurement (mass/volume)Ordered By: Dr. Kim on 06-16-2022 Cholesterol in LDL [Mass/Vol] 153 mg/dL 0-130 [facility] Serum or plasma urea nitroge n measurement (mass/volume)Ordered By: Dr. Kim on 06-16-2022 Urea nitrogen [Mass/Vol] 10 mg/dL 7-18 [facility] Thin prep Papanicolaou smear with manual screeningOrdered By: Dr. Kim on 06-16-2022 Thin prep Papanicolaou smear with manual screening 16 U/L 15-37 [facility] Thin prep Papanicolaou smear with manual screening 5 5-15 [facility] Whole blood hemoglobin A1c/t otal hemoglobin ratio (mass fraction)Ordered By: Dr. Kim on 06-16-2022 HbA1c (Bld) [Mass fraction] 5.3 % 3.8-5.6 [facility] Comment on above: Normal < 5.7 % Predi abetic 5.7 - 6.4 % Diabetic >or= 6.5 % Please note range changes. Basophil percentageon 2021 Bilirubin [Mass/Vol] 0.30 mg/dL 0.20-1.00 [facility] Work Phone: Comment on above: For patients on eltr ombopag therapy, use of Dimension [place] TBIL is not recommended. Chloride [Moles/Vol] 104 mmol/L 98-107 [facility] Work Phone: Glucose [Mass/Vol] 105 mg/dL 74-106 [facility] Work Phone: Comment on above: Fasting Glucose resu lt from 100 to 125 mg/dL suggests IMPAIRED HOMEOSTASIS per A.D.A. criteria. Potassium [Moles/Vol] 4.2 mmol/L 3.5-5.1 [facility] Work Phone: Protein [Mass/Vol] 7.1 g/dL 6.4-8.2 [facility] Work Phone: [phone] Sodium [Moles/Vol] 138 mmol/L 136-145 [facility] Work Phone: [phone] WBC (Bld) [#/Vol] 7.2 10*3/uL 4.4-11.0 [facility] Work Phone: [phone] Blood erythrocytes count (nu mber/volume)on 01-13-2022 RBC (Bld) [#/Vol] 4.49 10*6/uL 4.2-5.4 [facility] Work Phone: [phone] Blood hemoglobin measurement (mass/volume)on 01-13-2022 Hemoglobin (Bld) [Mass/Vol] 15.3 g/dL 12.0-15.0 [facility] Work Phone: [phone] Blood platelet mean volumeon 01-13-2022 Platelet mean volume (Bld) [Entitic vol] 9.8 fL 6.2-12.0 [facility] Work Phone: [phone] Determination of erythrocyte mean corpuscular volume (MCV)on 01-13-2022 MCV (RBC) [Entitic vol] 100.9 fL 81-99 W [facility] Work Phone: [phone] Hematocrit Auto (Bld) [Volum e fraction]on 01-13-2022 Hematocrit (Bld) [Volume fraction] 45.3 % 37-47 [facility] Work Phone: Laboratory - Chemistry and C hemistry - challengeon 01-13-2022 ALP [Catalytic activity/Vol] 81 U/L 45-117 [facility] Work Phone: [phone] ALT [Catalytic activity/Vol] 35 U/L 13-56 [facility] Work Phone: [phone] [Moles/Vol] 30.0 mmol/L 21.0-32.0 [facility] Work Phone: [phone] Globulin (S) [Mass/Vol] 3.3 g/dL 2.2-4.2 W [facility] Work Phone: [phone] Urea nitrogen/Creatinine [Mass ratio] 16.9 mg/mg 10-20 [facility] Work Phone: [phone] Laboratory - Hematology and Cell countson 01-13-2022 Erythrocyte distribution width (RBC) [Entitic vol] 48.3 fL 35.1-43.9 [facility] Work Phone: [phone] Erythrocyte distribution width (RBC) [Ratio] 13.0 % 11.6-14.6 [facility] Work Phone: [phone] MCH (RBC) [Entitic mass] 34.1 pg 27.0-32.0 [facility] Work Phone: [phone] MCHC Auto (RBC) [Mass/Vol]on 01-13-2022 MCHC (RBC) [Mass/Vol] 33.8 g/dL 32-36 [facility] Work Phone: No Panel Informationon 01-13 Estimated GFR (MDRD) Amer 100 mL/min >60 [facility] Work Phone: Comment on above: GFR Calc Estimated GFR (MDRD) Non-Af Amer 83 mL/min >60 [facility] Work Phone: Comment on above: Non- GFR Calc Platelets bldon 01-13-2022 Platelets (Bld) [#/Vol] 284 10*3/uL 150-450 [facility] Work Phone: Serum or plasma albumin jovana urement (mass/volume)on 01-13-2022 Albumin [Mass/Vol] 3.8 g/dL 3.2-5.0 [facility] Work Phone: [phone] Serum or plasma albumin/glob ulin mass ratioon 01-13-2022 Albumin/Globulin [Mass ratio] 1.2 {ratio} 0.9-2.4 [facility] Work Phone: [phone] Serum or plasma calcium jovana urement (mass/volume)on 01-13-2022 Calcium [Mass/Vol] 8.9 mg/dL 8.5-10.1 [facility] Work Phone: [phone] Serum or plasma creatinine m easurement (mass/volume)on 01-13-2022 Creatinine [Mass/Vol] 0.77 mg/dL 0.55-1.02 [facility] Work Phone: Comment on above: The validity of the calculated GFR & GFRAA in patients over 70 years has not been determined. Clinical correlation is essential. Serum or plasma urea nitroge n measurement (mass/volume)on 01-13-2022 Urea nitrogen [Mass/Vol] 13 mg/dL 7-18 [facility] Work Phone: [phone] Thin prep Papanicolaou smear with manual screeningon 01-13-2022 Thin prep Papanicolaou smear with manual screening 17 U/L 15-37 [facility] Work Phone: [phone] Thin prep Papanicolaou smear with manual screening 4 5-15 [facility] Work Phone: UA DIP, URINE (POC)on 2021 BILIRUBIN UA (POCT) Small Abnormal Negative Isaak [facility] CLARITY UA (POCT) Clear [facility] COLOR UA (POCT) Jewell [facility] GLUCOSE UA (POCT) 100 mg/dL Abnormal Negative mg/dL [facility] HEMOGLOBIN/BLOOD UA (POCT) Small Abnormal Negative [facility] KETONE UA (POCT) Trace Negative mg/dL [facility] LEUKOCYTES UA (POCT) Negative Negative [facility] NITRITE UA (POCT) Positive Abnormal Negative [facility] PH UA (POCT) 6.0 4.5 - 8.0 [facility] Protein Ql (U) 30 mg/dL Abnormal Negative mg/dL [facility] SPECIFIC GRAVITY UA (POCT) 1.010 1 .005 - 1.030 [facility] UROBILINOGEN UA (POCT) 2.0 E.U./dL Abnormal Ramya l E.U./dL [facility] Culture, urine Bacteria identified Cx Nom (U) Presumptive E. coli [facility] Work Phone: Vital Signs Date Time Vital Sign Value Performing Clinician Facility 12-13-2024 08:11-0400 Body height 157.[address] Taryn Kim MD Work Phone: [facility] 12-13-2024 08:11-0400 Body mass index (BMI) [Ratio] 37.1 kg/m2 Dr. Taryn Kim MD Work Phone: [facility] 12-13-2024 08:11-0400 Body temperature 95.7 [degF] Dr. Taryn Kim MD Work Phone: [facility] 12-13-2024 08:11-0400 Body weight 92.[address] Taryn Kim MD Work Phone: [facility] 12-13-2024 08:11-0400 Diastolic blood pressure 81 mm[Hg] Dr. Taryn Kim MD Work Phone: [facility] 12-13-2024 08:11-0400 Heart rate 80 /min Dr. Taryn Kim MD Work Phone: [facility] 12-13-2024 08:11-0400 Respiratory rate 18 /min Dr. Taryn Kim MD Work Phone: [facility] 12-13-2024 08:11-0400 SaO2% (BldA) [Mass fraction] 95 % Dr. Taryn Kim MD Work Phone: [facility] 12-13-2024 08:11-0400 Systolic blood pressure 138 mm[Hg] Dr. Taryn Kim MD Work Phone: [facility] 07-21-2024 10:40-0400 Body mass index (BMI) [Ratio] 37.44 kg/m2 Jo-Ann Avendano APRN.VIDEO JOURNALIST Work Phone: [facility] 07-21-2024 10:40-0400 Body temperature 98.49 [degF] Jo-Ann Avendano APRN.VIDEO JOURNALIST Work Phone: [facility] 07-21-2024 10:40-0400 Body weight 93.6 kg Jo-Ann Avendano APRN.VIDEO JOURNALIST Work Phone: [facility] 07-21-2024 10:40-0400 Diastolic blood pressure 72 mm[Hg] Jo-Ann Avendano APRN.VIDEO JOURNALIST Work Phone: [facility] 07-21-2024 10:40-0400 Heart rate 92 /min Jo-Ann Avendano APRN.VIDEO JOURNALIST Work Phone: [facility] 07-21-2024 10:40-0400 Respiratory rate 16 /min JoA-nn Avendano APRN.VIDEO JOURNALIST Work Phone: [facility] 07-21-2024 10:40-0400 SaO2% (BldA) [Mass fraction] 95 % Jo-Ann Avendano APRN.VIDEO JOURNALIST Work Phone: [facility] 07-21-2024 10:40-0400 Systolic blood pressure 118 mm[Hg] Jo-Ann Avendano APRN.VIDEO JOURNALIST Work Phone: [facility] 03-14-2024 07:41-0400 Body mass index (BMI) [Ratio] 37.8 kg/m2 Markel Masterson LANDSCAPE MANAGER.VIDEO JOURNALIST Work Phone: [facility] 03-14-2024 07:41-0400 Body temperature 98.1 [degF] Markel Masterson LANDSCAPE MANAGER.VIDEO JOURNALIST Work Phone: [facility] 03-14-2024 07:41-0400 Body weight 94.5 kg Markel Masterson LANDSCAPE MANAGER.VIDEO JOURNALIST Work Phone: [facility] 03-14-2024 07:41-0400 Diastolic blood pressure 67 mm[Hg] Markel Masterson LANDSCAPE MANAGER.VIDEO JOURNALIST Work Phone: [facility] 03-14-2024 07:41-0400 Heart rate 79 /min Markel Masterson LANDSCAPE MANAGER.VIDEO JOURNALIST Work Phone: [facility] 03-14-2024 07:41-0400 Respiratory rate 22 /min Markel Masterson LANDSCAPE MANAGER.VIDEO JOURNALIST Work Phone: [facility] 03-14-2024 07:41-0400 SaO2% (BldA) [Mass fraction] 95 % Markel Masterson LANDSCAPE MANAGER.VIDEO JOURNALIST Work Phone: [facility] 03-14-2024 07:41-0400 Systolic blood pressure 110 mm[Hg] Markel Masterson LANDSCAPE MANAGER.VIDEO JOURNALIST Work Phone: [facility] 09-05-2023 08:15-0400 Heart rate 69 /min Dr. Taryn Kim Work Phone: [facility] 09-05-2023 08:15-0400 SaO2% (BldA) [Mass fraction] 99 % Dr. Taryn Kim Work Phone: [facility] 08-29-2023 07:42-0400 Body height 157.[address] Taryn Kim Work Phone: [facility] 08-29-2023 07:42-0400 Body mass index (BMI) [Ratio] 36.6 kg/m2 Dr. Taryn Kim Work Phone: [facility] 08-29-2023 07:42-0400 Body temperature 97.2 [degF] Dr. Taryn Kim Work Phone: [facility] 08-29-2023 07:42-0400 Body weight 90.[address] Taryn Kim Work Phone: [facility] 08-29-2023 07:42-0400 Diastolic blood pressure 76 mm[Hg] Dr. Taryn Kim Work Phone: [facility] 08-29-2023 07:42-0400 Heart rate 59 /min Dr. Taryn Kim Work Phone: [facility] 08-29-2023 07:42-0400 Respiratory rate 18 /min Dr. Taryn Kim Work Phone: [facility] 08-29-2023 07:42-0400 SaO2% (BldA) [Mass fraction] 96 % Dr. Taryn Kim Work Phone: [facility] 08-29-2023 07:42-0400 Systolic blood pressure 111 mm[Hg] Dr. Taryn Kim Work Phone: [facility] 07-21-2023 09:58-0500 Body weight 90.08 kg Catherine Carr APRN.VIDEO JOURNALIST Work Phone: [facility] 07-21-2023 09:58-0500 Diastolic blood pressure 70 mm[Hg] Catherine Haury LANDSCAPE MANAGER.VIDEO JOURNALIST Work Phone: [facility] 07-21-2023 09:58-0500 Systolic blood pressure 120 mm[Hg] Catherine Haury LANDSCAPE MANAGER.VIDEO JOURNALIST Work Phone: [facility] 07-19-2023 07:32-0500 Body height 158.1 cm Catherine Carr APRN.VIDEO JOURNALIST Work Phone: [facility] 07-19-2023 07:32-0500 Body weight 90.27 kg Catherine Bruno LANDSCAPE MANAGER.VIDEO JOURNALIST Work Phone: [facility] 07-19-2023 07:32-0500 Diastolic blood pressure 80 mm[Hg] Catherine Pinedarashawn LANDSCAPE MANAGER.VIDEO JOURNALIST Work Phone: [facility] 07-19-2023 07:32-0500 Systolic blood pressure 112 mm[Hg] Catherine Pinedarashawn LANDSCAPE MANAGER.VIDEO JOURNALIST Work Phone: [facility] 06-08-2023 15:19-0500 Diastolic blood pressure 69 mm[Hg] [facility] 06-08-2023 15:19-0500 Heart rate 74 /min [facility] 06-08-2023 15:19-0500 Respiratory rate 15 /min [facility] 06-08-2023 15:19-0500 SaO2% (BldA) [Mass fraction] 98 % [facility] 06-08-2023 15:19-0500 Systolic blood pressure 118 mm[Hg] [facility] 06-08-2023 13:42-0500 Body height 157.48 cm [facility] 06-08-2023 13:42-0500 Body mass index (BMI) [Ratio] 38.7 kg/m2 [facility] 06-08-2023 13:42-0500 Body temperature 97.5 [degF] [facility] 06-08-2023 13:42-0500 Body weight 95.9 kg [facility] 04-07-2023 14:40-0500 Body temperature 98.2 [degF] Oneida Praisler-Wood LANDSCAPE MANAGER.VIDEO JOURNALIST Work Phone: [facility] 04-07-2023 14:40-0500 Body weight 92.08 kg Oneida Praisler-Wood LANDSCAPE MANAGER.VIDEO JOURNALIST Work Phone: [facility] 04-07-2023 14:40-0500 Diastolic blood pressure 62 mm[Hg] Oneida Praisler-Wood LANDSCAPE MANAGER.VIDEO JOURNALIST Work Phone: [facility] 04-07-2023 14:40-0500 Heart rate 66 /min Oneida Praisler-Wood LANDSCAPE MANAGER.VIDEO JOURNALIST Work Phone: [facility] 04-07-2023 14:40-0500 Respiratory rate 16 /min Oneida Schroeder LANDSCAPE MANAGER.VIDEO JOURNALIST Work Phone: [facility] 04-07-2023 14:40-0500 SaO2% (BldA) [Mass fraction] 98 % Oneida Madrigal-Rojelio LANDSCAPE MANAGER.VIDEO JOURNALIST Work Phone: [facility] 04-07-2023 14:40-0500 Systolic blood pressure 118 mm[Hg] Oneida Madrigal-Rojelio LANDSCAPE MANAGER.VIDEO JOURNALIST Work Phone: [facility] 12-08-2022 11:48-0400 Diastolic blood pressure 75 mm[Hg] [facility] 12-08-2022 11:48-0400 Heart rate 82 /min [facility] 12-08-2022 11:48-0400 SaO2% (BldA) [Mass fraction] 99 % [facility] 12-08-2022 11:48-0400 Systolic blood pressure 125 mm[Hg] [facility] 12-08-2022 10:02-0400 Respiratory rate 14 /min [facility] 12-08-2022 08:06-0400 Body height 157.48 cm [facility] 12-08-2022 08:06-0400 Body mass index (BMI) [Ratio] 37.7 kg/m2 [facility] 12-08-2022 08:06-0400 Body temperature 95.4 [degF] [facility] 12-08-2022 08:06-0400 Body weight 93.6 kg [facility] 04-05-2022 07:03-0500 Body height 157.5 cm Liza Eloisa LANDSCAPE MANAGER.VIDEO JOURNALIST Work Phone: [facility] 04-05-2022 07:03-0500 Body weight 91.08 kg Liza Eloisa LANDSCAPE MANAGER.VIDEO JOURNALIST Work Phone: [facility] 04-05-2022 07:03-0500 Diastolic blood pressure 64 mm[Hg] Liza Eloisa LANDSCAPE MANAGER.VIDEO JOURNALIST Work Phone: [facility] 04-05-2022 07:03-0500 Systolic blood pressure 120 mm[Hg] Liza Amin APRN.CNP Work Phone: [facility] 08-24-2021 18:24-0400 Body temperature 97.81 [degF] Leonela Athy PA-C Work Phone: [facility] 08-24-2021 18:24-0400 Body weight 94.35 kg Leonela Athy PA-C Work Phone: [facility] 08-24-2021 18:24-0400 Diastolic blood pressure 64 mm[Hg] Leonela Athy PA-C Work Phone: [facility] 08-24-2021 18:24-0400 Heart rate 88 /min Leonela Athy PA-C Work Phone: [facility] 08-24-2021 18:24-0400 Respiratory rate 18 /min Leonela Athy PA-C Work Phone: [facility] 08-24-2021 18:24-0400 SaO2% (BldA) [Mass fraction] 97 % Leonela Athy PA-C Work Phone: [facility] 08-24-2021 18:24-0400 Systolic blood pressure 108 mm[Hg] Leonela Athy PA-C Work Phone: [facility] Encounters Encounter Date Encounter Type Care Provider Facility Start: 03-19-2025 ambulatory CHRISTOPHER MILLER Facil ity:[facility] Start: 02-27-2025 End: 02-27-2025 ambulatory CHRISTOPHER MILLER Facility:[facility] Start: 02-26-2025 End: 02-26-2025 ambulatory CHRISTOPHER MILLER Facility:[facility] Start: 02-26-2025 Encounter for gynecological examination (general) (routine) without abnormal findings CHRISTOPHER MILLER [facility] Start: 01-03-2025 End: 01-03-[address] Taryn Kim MD Work Phone: [facility] Start: 01-03-2025 End: 01-03-2025 Patient encounter procedure Tiny Burleson TAXI SERVICER-C [facility] Work Phone: Start: 01-03-2025 End: 01-03-2025 ambulatory Taryn Hernandez Facility:[facility] Start: 12-13-2024 End: 12-13-2024 Patient encounter procedure TAXI SERVICER Sil Selby [facility] Work Phone: Start: 12-13-2024 End: 12-13-[address] Taryn Kim MD Work Phone: -[facility] Start: 11-06-2024 End: 11-06-[address] Taryn Kim MD Work Phone: -Cat Scan [facility] Start: 11-06-2024 End: 11-06-2024 Patient encounter procedure Albania Glover TAXI SERVICER-C -Cat Scan [facility] Work Phone: Start: 11-06-2024 End: 11-06-2024 ambulatory Albania Glover NP Facility:[facility] Start: 07-22-2024 End: 09-21-2024 Follow-up encounter Jo-Ann Avendano APRN.CNP Work Phone: [facility] [employer] [facility] Start: 07-21-2024 End: 07-21-2024 ambulatory TARYN KIM Facility:[facility] Start: 07-21-2024 End: 07-21-2024 Patient encounter procedure Jo-Ann Avendano APRN.VIDEO JOURNALIST Work Phone: [facility] [employer] [facility] Comment on above: Acute left-sided low back pain without sciatica (Primary Dx); Acute cystitis without hematuria Start: 05-03-2024 Encounter for genera l adult medical examination without abnormal findings Taryn Kim [facility] Start: 04-15-2024 End: 04-15-2024 ambulatory Albania Glover TAXI SERVICER Facility:[facility] Start: 04-03-2024 End: 04-03-2024 ambulatory Taryn Miclaudia Facility:[facility] Start: 03-14-2024 End: 03-14-2024 Telephone encounter Markel King LIZAVIDEO JOURNALIST Work Phone: [facility] Comment on above: Results Start: 03-14-2024 End: 03-14-2024 Subsequent hospital visit by physician [facility] Work Phone: Radiology Comment on above: Wheezing [R06.2] Start: 03-14-2024 End: 03-14-2024 Patient encounter procedure Markel King LIZAVIDEO JOURNALIST Work Phone: [facility] Comment on above: Sinobronchitis (Prim junior Dx); History of emphysema (HCC); Wheezing Start: 09-18-2023 End: 09-18-[address] Taryn Kim Work Phone: [facility] Work Phone: Start: 09-18-2023 End: 09-18-[address] Taryn Kim Work Phone: [facility] Work Phone: Start: 09-12-2023 End: 09-12-[address] Taryn Kim Work Phone: [facility] Work Phone: Start: 09-12-2023 End: 09-12-[address] Taryn Kim Work Phone: [facility]-Laboratory Work Phone: Start: 09-06-2023 Non-patient / Non-visit Dr. Edwin Kim Work Phone: [facility] Start: 09-05-2023 End: 09-05-[address] Taryn Kim Work Phone: [facility] Work Phone: Start: 09-05-2023 End: 09-05-[address] [facility] Work [facility]: Start: 09-01-2023 End: 09-01-[address] Taryn Kim Work Phone: [facility] Work Phone: Start: 09-01-2023 End: 09-01-[address] Taryn Kim Work Phone: [facility] Services/Neurology Work Phone: Start: 08-29-2023 End: 08-29-[address] Taryn Kim Work Phone: [facility] Work Phone: Start: 08-29-2023 End: 08-29-[address] Taryn Kim Work Phone: [facility] Work Phone: Start: 08-29-2023 End: 08-29-[address] Taryn Kim Work Phone: [facility] Work Phone: Start: 07-26-2023 End: 07-26-2023 ambulatory [facility] Work Phone: Start: 07-26-2023 End: 07-26-2023 Patient encounter procedure [facility] Work Phone: Start: 07-21-2023 End: 07-21-2023 Patient encounter procedure Catherine Carr APRN.VIDEO JOURNALIST Work Phone: OB/Gynecology Comment on above: Abnormal uterine ble eding (AUB) (Primary Dx); History of abnormal uterine bleeding Start: 07-20-2023 End: 07-20-2023 Subsequent hospital visit by physician [facility] Work Phone: Radiology Comment on above: Encounter for routin e checking of intrauterine contraceptive device (IUD) [Z30.431] Start: 07-20-2023 Telephone encounter Catherine Esperanza wright APRN.VIDEO JOURNALIST Work Phone: OB/Gynecology Comment on above: Results Start: 07-19-2023 End: 07-19-2023 Patient encounter procedure Catherine Bruno ALVAREZ.VIDEO JOURNALIST Work Phone: OB/Gynecology Comment on above: Encounter for gyneco logical examination (general) (routine) without abnormal findings (Primary Dx); Encounter for screening for human papillomavirus (HPV); Pap smear for cervical cancer screening; Excessive bleeding in premenopausal period; Pelvic cramping; Encounter for screening for osteoporosis; Female stress incontinence Start: 07-19-2023 End: 07-19-2023 Patient encounter status Catherine Carr APRN.VIDEO JOURNALIST Work Phone: [facility] Start: 06-08-2023 End: 06-08-2023 Emergency department patient visit [facility] Work Phone: Start: 04-07-2023 End: 04-07-2023 Patient encounter procedure Oneida Schroeder LANDSCAPE MANAGER.VIDEO JOURNALIST Work Phone: [facility] Comment on above: Viral URI with cough (Primary Dx); Other acute nonsuppurative otitis media of left ear, recurrence not specified; Sinobronchitis Start: 12-08-2022 End: 12-08-2022 Emergency department patient visit [facility] Work Phone: Start: 07-22-2022 End: 07-22-2022 ambulatory [facility] Work Phone: Start: 07-22-2022 End: 07-22-2022 Patient encounter procedure [facility] Start: 06-16-2022 End: 06-16-2022 Patient encounter procedure [facility] Start: 04-05-2022 End: 04-05-2022 Patient encounter procedure Liza Amin LANDSCAPE MANAGER.VIDEO JOURNALIST Work Phone: OB/Gynecology Comment on above: Encounter for gyneco logical examination (general) (routine) without abnormal findings (Primary Dx); Vaginal discharge Start: 04-05-2022 End: 04-05-2022 Patient encounter status Liza Amin LANDSCAPE MANAGER.VIDEO JOURNALIST Work Phone: OB/Gynecology Start: 03-23-2022 End: 03-23-2022 ambulatory [facility] Work Phone: Start: 03-23-2022 End: 03-23-2022 Patient encounter procedure [facility]Laboratory, Specimen Start: 01-13-2022 End: 01-13-2022 ambulatory [facility] Work Phone: Start: 01-13-2022 End: 01-13-2022 Patient encounter procedure [facility] Start: 08-26-2021 Telephone encounter Wes Tai watson LANDSCAPE MANAGER.VIDEO JOURNALIST Work Phone: [facility] Comment on above: Results Start: 08-24-2021 End: 08-24-2021 Patient encounter procedure Leonela Sandoval PAJesusitaC Work Phone: [facility] Comment on above: Acute cystitis with hematuria (Primary Dx) Procedures Date Procedure Procedure Detail Performing Clinician Start: 01-03-2025 X-ray of chest, PA a nd lateral views Dr. Taryn Kim MD Work Phone: Start: 11-06-[address] Taryn Kim MD Work Phone: Start: 07-21-2024 Urnls dip stick/tabl et rgnt auto w/o microscopy Jo-Ann Avendano LANDSCAPE MANAGER.VIDEO JOURNALIST Work Phone: Start: 03-14-2024 Radiologic exam ches t 2 views Markel Masterson LANDSCAPE MANAGERIggyVIDEO JOURNALIST Work Phone: Start: 09-18-[address] Taryn Kim Work Phone: Start: 07-26-2023 Screening mammography Start: 06-08-2023 Plain chest X-ray Start: 12-08-2022 Plain chest X-ray Start: 07-22-2022 CT of chest Start: 07-22-2022 Screening mammography Start: 08-24-2021 Urnls dip stick/tabl et rgnt auto w/o microscopy [facility] Provider Start: 07-21-2021 Mammography Liza [facility] john LANDSCAPE MANAGER.VIDEO JOURNALIST Work Phone: Start: 02-02-2021 Colonoscopy Leonela Sandoval PA-C Work Phone: History of decompres karis of median nerve History of carpal tunnel surgery of left wrist Dr. Taryn Kim MD Work Phone: Urine culture Plan of Treatment Date Care Activity Detail Author Start: 07-18-2028 Screening for malign ant neoplasm of cervix Cervical Cancer Screening [facility] Start: 02-02-2026 Colonoscopy COLONOSCOPY [facility] Start: 02-02-2026 COLORECTAL CANCER SCREENING COLORECTAL CANCER SCREENING [facility] Start: 02-02-2026 Screening for malign ant neoplasm of colon [facility] Start: 01-13-2025 Influenza vaccination Influenz a Vaccine (Season Ended) [facility] Start: 07-19-2024 End: 07-19-2024 Patient encounter procedure 07/19/2024 4:00 PM EST Office Visit OB/Gynecology [address] [place] [address] Catherine Carr APRN.VIDEO JOURNALIST [address] [place] [address] annual OB/Gynecology Comment on above: annual Start: 01-14-2024 Covid-19 Vaccine ( season) Covid-19 Vaccine ( season) [facility] Start: 01-14-2024 Influenza vaccination Influenza Vacc ine (#1) [facility] Start: 08-29-2023 IgE [Units/volume] i n Serum or Plasma [facility] Start: 08-29-2023 [facility] Start: 07-19-2023 End: 10-18-2023 Estradiol (E2) [Mass/volume] in Serum or Plasma [facility] Work Phone: Comment on above: Expected: 07/19/2023 , Expires: 10/18/2023 Start: 07-19-2023 End: 10-18-2023 Follitropin [Units/volume] in Serum or Plasma [facility] Work Phone: Comment on above: Expected: 07/19/2023 , Expires: 10/18/2023 Start: 06-08-2023 [facility] Start: 05-15-2023 Depression Assessment Depression Ass essment [facility] Start: 04-12-2023 HPV TESTING HPV TESTING [facility] Start: 04-12-2023 PAP TESTING PAP TESTING [facility] Start: 04-12-2023 Screening for malign ant neoplasm of cervix [facility] Start: 01-13-2023 Covid-19 Vaccine ( season) Covid-19 Vaccine () [facility] Start: 01-13-2023 Influenza vaccination Influenza Vacc ine (#1) [facility] Start: 12-08-2022 [facility] Start: 07-21-2022 Mammography [facility] Start: 07-21-2022 Screening for malign ant neoplasm of breast Mammogram Screening [facility] Start: 05-15-2022 Depression Assessment Depression Ass witham health servicesment [facility] Start: 01-13-2022 Influenza vaccination INFLUENZA (#1) [facility] Start: 08-24-2021 End: 10-24-2021 Bacteria identified in Urine by Culture URINE CULTURE Microbiology Routine Acute cystitis with hematuria Expected: 08/24/2021, Expires: 10/24/2021 [facility] Work Phone: Comment on above: Expected: 08/24/2021 , Expires: 10/24/2021 Start: 05-15-2021 DEPRESSION ASSESSMENT DEPRESSION ASS ESSMENT [facility] Start: 11-14-2020 COVID-19 VACCINE (3 - Booster for Moderna series) COVID-19 VACCINE (3 - Booster for Moderna series) [facility] Start: 08-12-2020 COVID-19 VACCINE (3 - Booster for Moderna series) COVID-19 VACCINE (3 - Booster for Moderna series) [facility] Start: 2017 Influenza vaccination LUNG CANCER SC REENING [facility] Start: 2017 SHINGRIX VACCINE (1 of 2) SHINGRIX VACCINE (1 of 2) [facility] Start: 01-19-2012 COLOGUARD (FIT-DNA) COLOGUARD (FIT-D NA) [facility] Start: 01-19-[address] COLONOGRAPHY [facility] Start: 01-19-2012 DIABET[facility]CREEN [facility] Start: 01-19-2012 Diabetes Screening Diabetes Screenin g [facility] Start: 01-19-2012 FECAL OCCULT BLOOD FECAL OCCULT BLOO D [facility] Start: 01-19-2012 Lipid 1996 panel - Serum or Plasma Lipid Screening [facility] Start: 01-19-2012 Lipid panel Lipid Screening [facility] Start: 01-19-2012 LIPID SCREEN LIPID SCREEN [facility] [facility] Start: 01-19-2012 Screening for malign ant neoplasm of colon [facility] Start: 01-19-2012 SIGMOIDOSCOPY SIGMOIDOSCOPY [facility] Start: 2007 Mammography MAMMOGRAM [facility] Start: 1986 Hepatitis B Vaccine (1 of 3 - 19+ 3-dose series) Hepatitis B Vaccine (1 of 3 - 19+ 3-dose series) [facility] Start: 1986 Pneumococcal Vaccine : 50+ (1 of 2 - PCV) Pneumococcal Vaccine: 50+ (1 of 2 - PCV) [facility] Start: 1986 Urine microalbumin profile [facility] Start: 1985 Anxiety Screening Anxiety Screening [facility] Start: 1985 Depression Screening Depression Scre [facility] Start: 1985 HEPATITIS C SCREENING HEPATITIS C [facility] Start: 1985 Hepatitis C screening Hepatitis C [facility] Start: 1985 HIV SCREENING HIV SCREENING [facility] Start: 1985 HIV screening HIV Screening [facility] Start: 1979 Adult depression screening assessment DEPRESSION SCREENING [facility] Start: 1973 PNEUMOCOCCAL (1 - PCV) PNEUMOCOCCAL (1 - PCV) [facility] Start: 1973 Pneumococcal vaccination [facility] Start: 1967 HEPATITIS B (1 of 3 - 3-dose series) HEPATITIS B (1 of 3 - 3-dose series) [facility] Start: 1967 Hepatitis B Vaccine (1 of 3 - 3-dose series) Hepatitis B Vaccine (1 of 3 - 3-dose series) [facility] Bacteria identified in Urine by Culture BACTERIAL CULTURE, URINE Microbiology Routine Acute left-sided low back pain without sciatica Ordered: 07/21/2024 [facility] Work Phone: Comment on above: Ordered: 07/21/2024 BACTERIAL VAGINOSIS AMPLIFICATION BACTERIAL VAGINOSIS AMPLIFICATION Lab Routine Vaginal discharge Ordered: 04/05/2022 [facility] Work Phone: Comment on above: Ordered: 04/05/2022 BACTERIAL VAGINOSIS NAAT BACTERIAL VAGINOSIS NAAT Lab Routine Pelvic cramping 07/19/2023 8:03 AM EST [facility] Work Phone: ANT / TRICHOMONA S AMPLIFICATION ANT / TRICHOMONAS AMPLIFICATION Microbiology Routine Vaginal discharge Ordered: 04/05/2022 [facility] Work Phone: Comment on above: Ordered: 04/05/2022 ANT/TRICHOMONAS NAAT ANT/TRICHOMONAS NAAT Lab Routine Pelvic cramping 07/19/2023 8:03 AM EST [facility] Work Phone: CT Chest [facility] CT Chest [facility] Endometrial bx w/wo endocervix bx w/o dilat spx ENDOMETRIAL BIOPSY Procedures Routine Encounter for gynecological examination (general) (routine) without abnormal findings Excessive bleeding in premenopausal period Ordered: 07/19/2023 [facility] Work Phone: Comment on above: Ordered: 07/19/2023 Measurement of Aspergillus flavus antibody [facility] Measurement of Aspergillus fumigatus antibody [facility] Measurement of Aspergillus niger antibody [facility] PAP TEST PAP TEST Lab Curtis gonzalez Encounter for screening for human papillomavirus (HPV) Pap smear for cervical cancer screening 07/19/2023 8:[address] [facility] Work Phone: Patient Education [facility] Work Phone: Patient referral [facility] Work Phone: SARS-CoV-2 (COVID-19 ) RNA [Presence] in Respiratory specimen by TOO with probe detection COVID NAAT, UPPER RESPIRATORY, ROUTINE Microbiology Routine Viral URI with cough 04/07/2023 3:[address] [facility] Work Phone: SURGICAL PATHOLOGY SURGICAL PATH OLOGY Lab Routine History of abnormal uterine bleeding 07/21/2023 10:[address] [facility] Work Phone: End: 08-18-2024 US Pelvis transvaginal US FEMALE PELVIS TRANSVAG Radiology Routine Encounter for routine checking of intrauterine contraceptive device (IUD) Pelvic cramping 1 Occurrences starting 07/20/2023 until 08/18/2024 [facility] Work Phone: Comment on above: 1 Occurrences starti ng 07/20/2023 until 08/18/2024 US Pelvis transvaginal US FEMALE PELVIS TRANSVAG Radiology Routine Encounter for routine checking of intrauterine contraceptive device (IUD) Pelvic cramping 07/20/2023 3:[address] [facility] Work Phone: Walking distance 6 minutes [facility] Immunizations Immunization Date Immunization Notes Care Provider Cuauhtemoc schumachre 03-09-2023 influenza, injectabl e, quadrivalent, preservative free Markel Zelalem LANDSCAPE MANAGER.VIDEO JOURNALIST Work Phone: [facility] 03-09-2023 influenza virus vacc ine, unspecified formulation Markel Zelalem LANDSCAPE MANAGER.VIDEO JOURNALIST Work Phone: [facility] 03-24-2022 influenza, injectabl e, quadrivalent, preservative free Markel Zelalem LANDSCAPE MANAGER.VIDEO JOURNALIST Work Phone: [facility] 03-24-2022 influenza virus vacc ine, unspecified formulation Oneida Schroeder LANDSCAPE MANAGER.VIDEO JOURNALIST Work Phone: [facility] 02-26-2021 influenza, injectabl e, quadrivalent, contains preservative Leonela Sandoval PA-C Work Phone: [facility] Work Phone: 06-17-2020 COVID-19 vaccine, fu ll dose (MODERNA) Leonela Sandoval PA-C Work Phone: [facility] Work Phone: 05-20-2020 COVID-19 vaccine, fu ll dose (MODERNA) Leonela Sandoval PA-C Work Phone: [facility] Work Phone: 03-06-2018 influenza, injectabl e, quadrivalent, preservative free Markel Masterson KIM.VIDEO JOURNALIST Work Phone: [facility] 03-15-2016 influenza virus vacc ine, unspecified formulation Markel King KIM.VIDEO JOURNALIST Work Phone: [facility] 04-07-2009 novel Influenza-H1N1 -09, live virus for nasal administration Markel King KIM.VIDEO JOURNALIST Work Phone: [facility] Payers Date Payer Category Payer Unknown [id number] 2024 Self-pay [id number] 2024 Private Health Insurance [id number] 2021 Private Health Insurance [facility] [employer] GENERIC [id number] 2021-Present [address] [address] [place] [address] PPO [id number] 2021 Private Health Insurance [id number] Private Health Insurance [facility] [id number] Unknown ANTHEM [id number] Unknown [facility] P[facility] [id number] Unknown [id number] Unknown [id number] Unknown [id number] Unknown [id number] Unknown [id number] Social History Date Type Detail Facility Start: 04-25-2018 Tobacco smoking stat us NHIS Ex-smoker [facility] Work Phone: End: 08-13-2017 History of tobacco use Current smoker [facility] Work Phone: End: 08-13-2017 History of tobacco use Cigarette Smoker [facility] Work Phone: Start: 04-25-2018 End: 07-19-2023 Cigarettes smoked current (pack per day) - Reported 1 [facility] Work Phone: Start: 04-25-2018 End: 03-14-2024 Tobacco use and exposure Smokeless tobacco non-user [facility] Work Phone: Start: 08-24-2021 End: 03-14-2024 Alcohol intake Current drinker of alcohol (finding) [facility] Start: 03-09-2010 History SDOH Alcohol Comment weekly [facility] Start: 05-06-2020 History SDOH Social Connections Phone 5 [facility] Start: 05-06-2020 History SDOH Social Connections Get Together 2 [facility] Start: 05-06-2020 History SDOH Social Connections Restorationist 1 [facility] Start: 05-06-2020 History SDOH Social Connections Living 3 [facility] Start: 05-06-2020 History SDOH Physica l Activity DPW 0 [facility] Start: 05-06-2020 Education 21 [facility] Start: 1965 Sex Assigned At Female [facility] Start: 08-14-2021 End: 04-05-2022 Exposure to SARS-CoV-2 (event) Not sure [facility] Start: 04-05-2022 End: 04-15-2024 Tobacco smoking status MEIS Smokes tobacco daily [facility] Work Phone: Start: 12-08-2022 End: 08-29-2023 Tobacco smoking status NHIS Unknown if ever smoked [facility] Start: 05-06-2020 End: 07-19-2023 Social connection and isolation panel [facility] Work Phone: Do you belong to any clubs or organizations such as tenriism groups, unions, fraternal or athletic groups, or school groups? No [facility] Work Phone: Are you now , , , , never or living with a partner? [facility] Work Phone: Do you feel stress - tense, restless, nervous, or anxious, or unable to sleep at night because your mind is troubled all the time - these days [OSQ] Not at all [facility] Work Phone: National Score (1-10 0), lower number is lower risk 62 [facility] Start: 03-30-2021 Gender identity Identifies as female gender (finding) [facility] Functional Status Date Assessment Result Facility 04-29-2014 Are you deaf, or do you have serious difficulty hearing No 04/29/2014 7:55 AM Sharona Warren MA No [facility] 04-29-2014 Are you blind, or do you have serious difficulty seeing, even when wearing glasses No 04/29/2014 7:55 AM Sharona Warren MA No [facility] 04-29-2014 Do you have serious difficulty walking or climbing stairs No 04/29/2014 7:55 AM Sharona Warren MA No [facility] 04-29-2014 Do you have difficul ty dressing or bathing No 04/29/2014 7:55 AM Sharona Warren MA No [facility] 04-29-2014 Because of a physica l, mental, or emotional condition, do you have difficulty doing errands alone such as visiting a physician's office or shopping No 04/29/2014 7:55 AM Sharona Warren MA [facility] Mental Status Date Assessment Result Facility 12-08-2022 Cognitive function Voice/Name [facility] Work Phone: 04-29-2014 Because of a physica l, mental, or emotional condition, do you have serious difficulty concentrating, remembering, or making decisions No 04/29/2014 7:55 AM Sharona Warren MA No [facility] Clinical Notes 08-24-2021 to 03-19-2025 Note Date & Type Note Facility 03-19-2025 Note HNO ID: [id number] Author: JEANINE ROLLINS RDMS Service: ? Author Type: Ornamental Ironworker Helper Type: Progress Notes Filed: 03/19/2025 16:19 Note Text: Radiology Service Progress Note PATIENT NAME: Nakia Deng DATE OF SERVICE: March 19, 2025 TIME: 4:19 PM PATIENT IDENTITY VERIFICATION COMPLETED USING TWO (2) IDENTIFIERS: Name and Date of confirmed by patient verbally. FALL SCREENING: Has the patient had 2 falls in the last year or 1 fall with injury or currently using an Ambulatory Assistive Device (Walker, Cane, Wheelchair, Crutches, etc.)? No PATIENT GENDER DATA: Assigned female at . status: : No status: NO. PATIENT RELEVANT IMPLANT DATA REVIEWED: Not Applicable PATIENT PRESENTS WITH AN IMPLANTABLE OR ATTACHED DUST HANDLER: No RADIOLOGY DEPARTMENT: Ultrasound PERIPHERAL IV DATA: Not applicable SIGNED BY: Jeanine Rollins RDMS RVT March 19, 2025 4:19 PM [facility] 02-28-2025 Note HNO ID: [id number] Author: SHERIE HOANG MD Service: ? Author Type: Physician Type: Progress Notes Filed: 02/28/2025 21:51 Note Text: The patient presents for requested ultrasound. Full report available in the Imaging tab in Epic. Sherie Hoang MD [facility] 02-27-2025 Note HNO ID: [id number] Author: LINDSAY RANDHAWA Mammo Tech Service: ? Author Type: Supervisor Fertilizer Processing Type: Progress Notes Filed: 02/27/2025 14:00 Note Text: Radiology Service Progress Note PATIENT NAME: Nakia Deng DATE OF SERVICE: February 27, 2025 TIME: 2:00 PM PATIENT IDENTITY VERIFICATION COMPLETED USING TWO (2) IDENTIFIERS: Name and Date of confirmed by patient verbally. FALL SCREENING: Has the patient had 2 falls in the last year or 1 fall with injury or currently using an Ambulatory Assistive Device (Walker, Cane, Wheelchair, Crutches, etc.)? No PATIENT GENDER DATA: Assigned female at . status: : No status: NO. PATIENT RELEVANT IMPLANT DATA REVIEWED: Not Applicable PATIENT PRESENTS WITH AN IMPLANTABLE OR ATTACHED DUST HANDLER: No RADIOLOGY DEPARTMENT: Mammography PERIPHERAL IV DATA: Not applicable SIGNED BY: Lindsay Randhawa, [employer] February 27, 2025 2:00 PM [facility] 02-26-2025 Note HNO ID: [id number] Author: CHRISTOPHER MILLER MD Service: ? Author Type: Physician Type: Progress Notes Filed: 02/26/2025 11:36 Note Text: Director Hedis offered: Patient accepts, visit chaperoned by Ronnell hinton Nakia is a 60 year old who presents for an annual gynecologic exam, intermittent pelvic pain. Postmenopausal: bleeding at age 56 HRT use: No. 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 History Comments: Sexual Activity: Yes; Male Contraception: Tubal Ligation PAST MEDICAL HISTORY Diagnosis Date Arthritis Asthma Benign head tremor Carpal tunnel syndrome Both hands Depression Hypothyroidism IBS (irritable bowel syndrome) RLS (restless legs syndrome) PAST SURGICAL HISTORY Procedure Laterality Date ABDOMINAL SURGERY HX COLONOSCOPY FLX DX W/COLLJ SPEC WHEN PFRMD 09/21/2010 repeat 09/2015 COLONOSCOPY FLX DX W/COLLJ SPEC WHEN PFRMD 11/24/2015 normal - 5 year follow up COLONOSCOPY FLX DX W/COLLJ SPEC WHEN PFRMD 02/02/2021 DILATION AND CURETTAGE DXAND/THER NONOBSTETRIC Dilation AND curettage INSERTION OF IUD LIG/TRNSXJ FLP TUBE ABDL/VAG APPR UNI/BI Tubal ligation REVISE MEDIAN N/CARPAL TUNNEL SURG Right 11/2019 SKIN BIOPSY HX FAMILY HISTORY Problem Relation Age of Onset Heart Mother Osteoporosis Mother Colon Cancer Father Colon Cancer Sister No Known Problems Brother Interstitial Lung Disease Maternal Grandmother Colon Cancer Paternal Grandmother Dementia Paternal Grandfather SOCIAL HISTORY Social History Tobacco Use Smoking status: Every Day Current packs/day: 0.00 Types: Cigarettes Last attempt to quit: 08/1992 Years since quittin.5 Smokeless tobacco: Never Vaping Use Vaping status: Never Used Substance Use Topics Alcohol use: Yes Comment: weekly Drug use: No REVIEW OF SYSTEMS Abdomen: No abdominal pain, nausea, vomiting, diarrhea, or constipation. No bloating, early satiety, indigestion, or increased flatulence. Bladder: No dysuria, gross hematuria, urinary frequency, + urinary urgency, and incontinence Breast: No breast lumps, nipple d/c, overlying skin changes, redness or skin retraction Allergies and current medication updated:Yes SENSITIVE EXAM: The sensitive examination was discussed with the Patient or Patient's Authorized Wood Barrel Reconditioner. As applicable, any other physician, advance practice provider, medical student, or other health professional student that will be observing or involved in the sensitive examination for educational or training purposes was discussed with the Patient or Authorized Wood Barrel Reconditioner. The Patient or Authorized Wood Barrel Reconditioner has agreed to proceed with the sensitive examination. (Sensitive examination includes inspection and/or palpation of the breasts, pelvis, prostate and anorectal regions). EXAM: LMP 05/26/2022 GENERAL: pleasant, female in no apparent distress HEENT: Normocephalic, atraumatic, mucus membranes moist, and no lesions. Noting essentialtremor NECK: Supple, full range of motion, no adenopathy, and thyroid normal DERMATOLOGY: Normal, without lesions, non-icteric, and non-hirsute BREAST: soft, non-tender, symmetric, no dominant mass, normal nipple-areolar complex, no lymphadenopathy, and no nipple discharge CHEST: Normal inspiratory effort ABDOMEN: soft, non-tender, and no masses PELVIC: external genitalia normal, normal Bartholin's glands, urethra, [place]'s glands, no vulvar lesions, no cervical lesions, good vaginal support, physiologic discharge present, normal appearing perineal body and perianal region BIMANUAL: uterus normal size, shape and consistency, non-tender, and unable to adequately evaluate adnexa RECTOVAGINAL: deferred. NEURO: alert and oriented x3,exam grossly non-focal EXTREMITIES: normal ASSESSMENT/PLAN: 1) Health maintenance: Mammogram ordered 2) Follow up one year or sooner as needed 3) IUD string in place 4) Pelvic ultrasound evaluate adnexa Christopher Miller MD [facility] 01-03-2025 Radiology Diagnostic study note [facility] Imaging Services [address] [place] [address] Chest PA and Lateral MR#: [id number] Acct: [id number] Name: NAKIA DENG Rep #: : [id number] From: Jacob Connelly MD PCP: Dr. Taryn Kim MD Status: REG CLI Study:Chest PA and Lateral Date of Exam: 01/03/25 Exam# [id number] Ordering Dr: Ra basil Burleson TAXI SERVICER-C PROCEDURE: CHEST PA AND LATERAL 01/03/2025 REASON FOR EXAM: RULE OUT PNEUMONIA, SOB TECHNIQUE: CHEST PA AND LATERAL COMPARISON: AP chest of 06/08/2023 RAD/Chest PA and Lateral IMPRESSION: Lungs appear clear throughout. No pleural effusion or pneumothorax is evident. The cardiomediastinal silhouette is within the normal range. Mild to moderate degenerative changes of the visualized spine are noted. No acute osseous process is seen. Reading Location: [place] [address] CC: TAXI SERVICER-C Tiny Burleson; Dr. Taryn Kim MD ~ Referral Clerk: Signed [facility] 12-13-2024 Evaluation note Diagnosis Onset Date Resolution Asthma chronic December 13 8:50am Nicotine dependence, cigarettes, in remission chronic December 13, 2024 8:50am [facility] Work Phone: 1(636) 541-871606-25-2025 Radiology Diagnostic study note [facility] Imaging Services [address] [place] [id number] Low Dose CT Lung Screening MR#: [id number] Acct: [id number] Name: NAKIA DENGTTE Rep #: [id number] : [id number] From: Emanuel Galindo MD PCP: Dr. Taryn Kim MD Status: REG CLI Study:Low Dose CT Lung Screening Date of Exam : 11/06/24 Exam# [id number] Ordering Dr: Carolynn Glover NP TAXI SERVICER-C PROCEDURE: LOW DOSE CT LUNG SCREENING 11/06/2024 REASON FOR EXAM: SMOKER QUIT 06/2023 TECHNIQUE: LOW DOSE CT LUNG SCREENING Coronal and Sagittal reconstruction series were provided. One or more dose reduction techniques were used (e.g., Automated exposure control, adjustment of the mA and/or kV according to patient size, use of iterative reconstruction technique). REFERENCE LINK: [employer] Lung-RADS RADIATION DOSE SUMMARY: CTDlvol: 4.02 mGy DLP: 153.0 mGycm COMPARISON: Prior study dated September 18, 2023. FINDINGS: PULMONARY NODULES: (Only nodules >3mm are reported) Nodules described below are on series 1 unless otherwise specified. Pulmonary Nodules: None Hardware:None Lymph Nodes:Stable 1.2 cm 1.5 cm pretracheal lymph node. Heart and Vasculature:The heart is not enlarged. Coronary Artery Calcifications: Absent Lungs and Airways: Mild emphysematous changes are present. Pleura:Unremarkable Upper Abdomen:Unremarkable Bones:Degenerative changes of the thoracic spine. CT/Low Dose CT Lung Screening IMPRESSION: Stable examination. Coronary artery calcification (CAC) is is absent Lung-RADS Category: 2 BENIGN (BASED ON IMAGING FEATURES OR INDOLENT BEHAVIOR). RECOMMEND 12-MONTH SCREENING LDCT. Other Significant Findings: Reading Location: [id number] CC: AMPARO Glover; Dr. Taryn Kim MD ~ Referral Clerk: Signed [facility]03-10-2025 Progress note* Result Encounter Note - Lisset Callejas LPN - 07/22/2024 4:05 PM EDT Pt notified of results and provider message. Pt reports she is feeling much better today. Lisset Callejas LPN [facility]03-10-2025 Miscellaneous Notes* Result Encounter Note - Lisset Callejas LPN - 07/22/2024 4:05 PM EDT Pt notified of results and provider message. Pt reports she is feeling much better today. Lisset Callejas LPN * Telephone Encounter - Jo-Ann Avendano APRN.CNP - 07/22/2024 3:48 PM EDT Patient's urine culture did not grow any bacteria other than normal bacteria. Patient can continue treatment if symptoms are improving but should follow-up with primary care for further evaluation ifsymptoms persist. [facility] Telephone encounter Note * Telephone Encounter - Jo-Ann Avendano APRN.CNP - 07/22/2024 3:48 PM EDT Patient's urine culture did not grow any bacteria other than normal bacteria. Patient can continue treatment if symptoms are improving but should follow-up with primary care for further evaluation ifsymptoms persist. [facility] Work Phone: 1(900) 915-485403-09-2025 NoteHNO ID: [id number] Author: JO-ANN AVENDANO APRN.WEI Service: ? Author Type: Nurse Practitioner Type: Progress Notes Filed: 07/21/2024 11:00 Note Text: [facility] Subjective Nakia Deng is a 59 year old female. Patient presents with: Low Back Pain: left side, nausea x 3 days, took azo Patient came in with complaints of lower abdominal cramping mild burning when she urinates lower left back pain mild fever the other day. Patient says she has had UTIs before it feels the same. Denies any other symptoms. The history is provided by the patient. No motor vehicle parts interpreter was used. Review of Systems Constitutional: Negative. Objective BP 118/72 Pulse 92 Temp 36.9 ?C (98.5 ?F) Resp 16 Wt 93.6 kg (206 lb 5.6 oz) LMP 05/26/2022 SpO2 95% BMI 37.44 kg/m? Physical Exam Constitutional: Appearance: Normal appearance. Cardiovascular: Rate and Rhythm: Normal rate and regular rhythm. Heart sounds: Normal heart sounds. Pulmonary: Effort: Pulmonary effort is normal. Breath sounds: Normal breath sounds. Abdominal: General: Abdomen is flat. Palpations: Abdomen is soft. Tenderness: There is no abdominal tenderness. Neurological: Mental Status: She is alert. ASSESSMENT/PLAN: 1. Acute left-sided low back pain without sciatica - ICD9: 724.2, ICD10: M54.50 (primary diagnosis) - UA DIP, URINE (POC) - BACTERIAL CULTURE, URINE 2. Acute cystitis without hematuria - ICD9: 595.0, ICD10: N30.00 - CEPHALEXIN 500 MG CAPSULE Educated about proper use of medication and supportive therapies. If culture comes back of medication needs changed please call in another medication. Jo-Ann Avendano APRN.VIDEO JOURNALIST History and Record Review External record(s) reviewed: no prior records. Differential Diagnoses - uti, is more likely for the following reason(s): suggested by HANDP - kidney infection is less likely for the following reason(s): HANDP not suggestive Disposition [facility]. [facility] History of Present illness Narrative* Jo-Ann Avendano APRN.[facility] - 07/21/2024 10:47 AM EDT [facility] Subjective Nakia Deng is a 59 year old female. Patient presents with: Low Back Pain: left side, nausea x 3 days, took azo Patient came in with complaints of lower abdominal cramping mild burning when she urinates lower left back pain mild fever the other day. Patient says she has had UTIs before it feels the same. Denies any other symptoms. The history is provided by the patient. No motor vehicle parts interpreter was used. Review of Systems Constitutional: Negative. Objective BP 118/72 Pulse 92 Temp 36.9 C (98.5 F) Resp 16 Wt 93.6 kg (206 lb 5.6 oz) LMP 05/26/2022 SpO2 95% BMI 37.44 kg/m Physical Exam Constitutional: Appearance: Normal appearance. Cardiovascular: Rate and Rhythm: Normal rate and regular rhythm. Heart sounds: Normal heart sounds. Pulmonary: Effort: Pulmonary effort is normal. Breath sounds: Normal breath sounds. Abdominal: General: Abdomen is flat. Palpations: Abdomen is soft. Tenderness: There is no abdominal tenderness. Neurological: Mental Status: She is alert. ASSESSMENT/PLAN: 1. Acute left-sided low back pain without sciatica - ICD9: 724.2, ICD10: M54.50 (primary diagnosis) - UA DIP, URINE (POC) - BACTERIAL CULTURE, URINE 2. Acute cystitis without hematuria - ICD9: 595.0, ICD10: N30.00 - CEPHALEXIN 500 MG CAPSULE Educated about proper use of medication and supportive therapies. If culture comes back of medication needs changed please call in another medication. Jo-Ann Avendano APRN.VIDEO JOURNALIST History and Record Review External record(s) reviewed: no prior records. Differential Diagnoses - uti, is more likely for the following reason(s): suggested by H&P - kidney infection is less likely for the following reason(s): H&P not suggestive Disposition The patient was discharged. Procedures documented in this encounterAs[facility] Telephone encounter Note * Telephone Encounter - Tsering Cisneros LPN - 03/14/2024 9:16 AM EDT Pt notified of results & message from provider, pt voiced understanding. Tsering Cisneros LPN [facility]10-[facility] Miscellaneous Notes* Telephone Encounter - Tsering Cisneros LPN - 03/14/2024 9:16 AM EDT Pt notified of results & message from provider, pt voiced understanding. Tsering Cisneros LPN * Telephone Encounter - Markel Masterson APRN.CNP - 03/14/2024 8:42 AM EDT Please notify no pneumonia on xray. Rx for doxy and prednisone. documented in this encounterAsht[facility]10-31-2024 Telephone encounter Note * Telephone Encounter - Markel Masterson APRN.CNP - 03/14/2024 8:42 AM EDT Please notify no pneumonia on xray. Rx for doxy and prednisone. [facility] History of Present illness Narrative* Richelle Fair RT(R) - 03/14/2024 8:00 AM EDT Radiology Service Progress Note PATIENT NAME: Nakia Deng DATE OF SERVICE: March 14, 2024 TIME: 8:02 AM PATIENT IDENTITY VERIFICATION COMPLETED USING TWO (2) IDENTIFIERS: Name and Date of confirmedby patient verbally. FALL SCREENING: Has the patient had 2 falls in the last year or 1 fall with injury or currently using an Ambulatory Assistive Device (Walker, Cane, Wheelchair, Crutches, etc.)? No PATIENT GENDER DATA: Female. status: : No status: NO. PATIENT RELEVANT IMPLANT DATA REVIEWED: Yes PATIENT PRESENTS WITH AN IMPLANTABLE OR ATTACHED DUST HANDLER: No RADIOLOGY DEPARTMENT: General X-ray: Exam(s) Completed: Chest X-Ray PERIPHERAL IV DATA: Not applicable SIGNED BY: RT Kaushal(Omar) March 14, 2024 8:02 AM documented in this encounterAshtabula [facility]10-31-2024 History of Present illness Narrative* Markel Masterson APRN.CNP - 03/14/2024 7:57 AM EDT Subjective HPI HPI Nakia Deng is a 59 year old female who presents today for CC of cough, congestion, ear pain, wheezing. This started 4 days ago/worsneing. Has tried otc medication and inhalers for relief.Risk factors sick exposures at work, smoker, hx of emphysema. .Patient presents with: Cough: Chest congestion, headache, chills, exp wheeze, left side back pain, x 4 days PAST MEDICAL HISTORY Diagnosis Date Arthritis Asthma Benign head tremor Carpal tunnel syndrome Both hands Depression Hypothyroidism IBS (irritable bowel syndrome) RLS (restless legs syndrome) PAST SURGICAL HISTORY Procedure Laterality Date ABDOMINAL SURGERY HX COLONOSCOPY FLX DX W/COLLJ SPEC WHEN PFRMD 09/21/2010 repeat 09/2015 COLONOSCOPY FLX DX W/COLLJ SPEC WHEN PFRMD 11/24/2015 normal - 5 year follow up COLONOSCOPY FLX DX W/COLLJ SPEC WHEN PFRMD 02/02/2021 DILATION & CURETTAGE DX&/THER NONOBSTETRIC Dilation & curettage INSERTION OF IUD LIG/TRNSXJ FLP TUBE ABDL/VAG APPR UNI/BI Tubal ligation REVISE MEDIAN N/CARPAL TUNNEL SURG Right 11/2019 SKIN BIOPSY HX ALLERGIES Erythromycin, Penicillins, and Flagyl [Metronidazole Hcl] MEDICATIONS albuterol HFA (PROVENTIL HFA, VENTOLIN HFA) 90 mcg/actuation inhaler Inhale 2 Puffs as instructed q4 HR. budesonide-formoterol (SYMBICORT) 160-4.5 mcg/actuation inhaler Inhale 2 Puffs as instructed two times a day. Lactobacillus acidophilus (PROBIOTIC ACIDOPHILUS ORAL) Take 1 capsule by mouth once daily. levonorgestrel (MIRENA) 20 mcg/24 hours (7 yrs) [...] mg Take one(1) tablet daily at bedtime. varenicline (CHANTIX) 1 mg tablet Take 1 mg by mouth two times a day with meals. (Patient not taking: Reported on 03/14/2024) FAMILY HISTORY Problem Relation Age of Onset Heart Mother Osteoporosis Mother Colon Cancer Father Colon Cancer Sister No Known Problems Brother Intersitial Lung Disease Maternal Grandmother Colon Cancer Paternal Grandmother Dementia Paternal Grandfather Social History Tobacco Use Smoking status: Every Day Current packs/day: 0.00 Types: Cigarettes Last attempt to quit: 08/1992 Years since quittin.6 Smokeless tobacco: Never Vaping Use Vaping status: Never Used Substance Use Topics Alcohol use: Yes Comment: weekly Drug use: No Review of Systems Constitutional: Negative for fever. HENT: Positive for congestion and ear pain. Negative for nosebleeds and sore throat. Respiratory: Positive for cough, shortness of breath and wheezing. Musculoskeletal: Positive for back pain. Negative for neck pain. Skin: Negative for itching and rash. Objective Blood pressure 110/67, pulse 79, temperature 36.7 C (98.1 F), resp. rate 22, weight 94.5 kg (208 lb5.4 oz), SpO2 95%. Physical Exam Constitutional: General: She is not in acute distress. Appearance: She is not toxic-appearing or diaphoretic. HENT: Head: Normocephalic and atraumatic. Cardiovascular: Rate and Rhythm: Normal rate and regular rhythm. Heart sounds: Normal heart sounds, S1 normal and S2 normal. Pulmonary: Effort: Pulmonary effort is normal. Breath sounds: Wheezing (scattered bilat) and rhonchi (scattered bilat) present. No decreased breath sounds or rales. Lymphadenopathy: Cervical: No cervical adenopathy. Right cervical: No superficial cervical adenopathy. Left cervical: No superficial cervical adenopathy. Neurological: Mental Status: She is alert and oriented to person, place, and time. Gait: Gait is intact. ASSESSMENT/PLAN: 1. Sinobronchitis - ICD9: 473.9, 490, ICD10: J32.9, J40 (primary diagnosis) - Will begin treatment with as per antibiotic as written, see orders - Supportive care with plenty of fluids, rest, and analgesia prn. - Follow up in 3-5 days if symptoms persist or worsen. - PREDNISONE 10 MG TABLET - DOXYCYCLINE HYCLATE 100 MG TABLET 2. History of emphysema (HCC) - ICD9: 492.8, ICD10: J43.9 - PREDNISONE 10 MG TABLET 3. Wheezing - ICD9: 786.07, ICD10: R06.2 - XR CHEST 2V FRONTAL/LAT IMPRESSION: No acute radiographic abnormality. Dictated by : ONDINA RIVERA MD - PREDNISONE 10 MG TABLET Markel Masterson APRN.WEI documented in this encounterAshtabula [facility]04-24-2024 Procedure [facility]03-08-2024 History of Present illness Narrative* Catherine Carr APRN.WEI - 07/21/2023 10:00 AM EST Director Hedis offered: Patient declines. Nakia is a 58 year old Female who [...] excellent visualization of the cervix. Anterior lip ofcervix grasped with single toothed tenaculum. Uterus sounded [...] material given to the patient. Catherine Carr APRN.CNP documented in this encounterAshtabula [facility]03-07-2024 History of Present illness Narrative* Malinda Hernandez RDMS - 07/20/2023 2:30 PM EST Radiology Service Progress Note PATIENT NAME: Nakia Deng DATE OF SERVICE: July 20, 2023 TIME: 3:10 PM PATIENT IDENTITY VERIFICATION COMPLETED USING TWO (2) IDENTIFIERS: Name and Date of confirmedby patient verbally. FALL SCREENING: Has the patient had 2 falls in the last year or 1 fall with injury or currently using an Ambulatory Assistive Device (Walker, Cane, Wheelchair, Crutches, etc.)? No PATIENT GENDER DATA: Female. status: : No status: NO. PATIENT RELEVANT IMPLANT DATA REVIEWED: Not Applicable PATIENT PRESENTS WITH AN IMPLANTABLE OR ATTACHED DUST HANDLER: No RADIOLOGY DEPARTMENT: Ultrasound PERIPHERAL IV DATA: Not applicable SIGNED BY: Malinda Hernandez RDMS July 20, 2023 3:10 PM documented in this encounterAshtabula [facility] Center03-07-2024 Miscellaneous Notes* Telephone Encounter - Elen Sanchez RN - 07/20/2023 10:20 AM EST Patient notified and voiced understanding. Patient scheduled for ultrasound today and EMB tomorrow.FYI. Elen Sanchez RN * Telephone Encounter - Catherine Carr APRN.CNP - 07/20/2023 7:27 AM EST Please notify patient: Labs consistent with menopause. Vaginal cultures negative for infection. Read 's IUD insertion note and IUD strings were cut to 2 cm and they were longer than that with exam so I do recommend ultrasound to verify location. I also recommend proceeding with EMB as we discussed yesterday. Please assist in scheduling. Catherine Carr APRN.CNP documented in this encounterAshtabula [facility] Center03-06-2024 Instructions* Patient Instructions* Catherine Carr APRN.CNP - 07/19/2023 7:49 AM EST How To [...] or ten at a time. Remind yourself todo these exercises by starting them every time [...] history of osteoporosis, are thin, or , orwho take certain medications such as cancer chemotherapy, [...] calcium and are the major food contributors inthe [place]. For example, 8oz of milk (whole, lowfat or skim) contains about 300mg calcium, 8oz of yogurt contains 415mg. Nondairy sources include salmon and sardines and vegetables, such as Italian cabbage, kale, and broccoli. Foods fortified with calcium include many fruit juices, tofu and cereals. For more food calcium content information, visit http://ods.od.nih.gov/factsheets/calcium. Calcium supplements come in several different forms. [...] acid, calcium carbonate is found in some ofic-utq-aupcrti antacid products, such as Tums and Rolaids . Depending on its strength, each chewable pill or softchew provides 200 to 400 mg of elemental calcium. The percentage of calcium absorbed depends on the total amount of elemental calcium consumed at onetime. Absorption is highest in doses <500mg. So [...] and maintains adequate blood levels of calcium andphosphate for normal bone growth and bone remodeling. [...] content, and sunscreen are among the factors thataffect UV radiation exposure and vitamin D synthesis. Despite the importance of the sun for vitaminD synthesis, it is prudent to limit exposure [...] available in two forms, D2 (ergocalciferol) and D3(cholecalciferol). The two are equivalent at normal supplement [...] low, increasing a person's risk of fractures. Thelumbar spine (lower back) and the hip are [...] your usual activities immediately. documented in this encounterAshtabula [facility]03-06-2024 History of Present illness Narrative* Catherine Carr APRN.CNP - 07/19/2023 7:19 AM EST Nakia is a 58 year old who presents [...] to her tailbone. Her mother has osteoporosis. Nakia had an IUD placed in 2020 for heavy menstrual bleeding. The previous IUD was not in the rightlocation. She did not have an endometrial biopsy. 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 LMP: LMP Unknown, IUD Age at Menarche: Age at First : Age at Menopause: Firewood Cutter History Comments: Sexual Activity: Yes; Male Contraception: [...] external genitalia normal, normal Bartholin's glands, urethra, [place]'s glands, no vulvar lesions, no cervical lesions, [...] information provided via patient instructions Catherine Carr APRN.CNP documented in this encounterAshtabula [facility] Center11-24-2023 History of Present illness Narrative* Oneida Schroeder APRN.CNP - 04/07/2023 3:02 PM EST Subjective Cough Associated symptoms include ear pain, headaches, sore throat, myalgias, shortness of breath and wheezing. Pertinent negatives include no chills. Nakia Deng is a 58 year old female who [...] Wt 92.1 kg (203 lb) LMP 03/14/2022 VcS546% BMI 37.13 kg/m PAST MEDICAL HISTORY Diagnosis [...] middle ear effusion is present. Tympanic membrane isinjected. Nose: Nose normal. Mouth/Throat: Mouth: Mucous membranes are moist. Pharynx: Oropharynx is clear. Uvula midline. No oropharyngeal exudate or posterior oropharyngeal erythema. Cardiovascular: Rate and Rhythm: Normal rate and regular rhythm. Heart sounds: Normal heart sounds. Pulmonary: Effort: Pulmonary effort is normal. No respiratory distress. Breath sounds: Examination of the right-upper field reveals wheezing. Examination of the left-upperfield reveals wheezing. Wheezing present. No rales. Musculoskeletal: [...] Discussed expected course of illness Oneida Schroeder APRN.CNP documented in this encounterAshtabula [facility] Center11-24-2023 Instructions* Patient Instructions* Oneida Schoreder APRN.CNP - 04/07/2023 3:02 PM EST ASSESSMENT/PLAN: 1. [...] Discussed expected course of illness Oneida Schroeder APRN.CNP documented in this encounterAshtabula County [facility] Center11-22-2022 History of Present illness Narrative* Liza Amin APRN.CNP - 04/05/2022 7:02 AM EST Nakia is a 57 year old who presents for an annual gynecologic exam without complaints. Postmenopausal: No. Menstrual cycle every 25-30 days Flow 3-4 days light spotting HRT use: Mirena. 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 Continue antibiotics as prescribed. Follow-up with PCP for reevaluation. Wes Loyola APRN.WEI documented in this encounterAshtabula [facility] Center04-12-2022 History of Present illness Narrative* Leonela Sandoval PA-C - 08/24/2021 7:03 PM EDT This note was created using Uplikeriter. Subjective Nakia Deng is a 56 year old female. HPI [...] IUD 1 Each by INTRAUTERINE route as directed.1 Each 0 primidone (MYSOLINE) 250 mg tablet [...] mg capsule Take 1 capsule by mouth twicedaily with meals for 5 days. 10 capsule [...] Wt 94.3 kg (208 lb) LMP 08/16/2021 GcN373% BMI 38.04 kg/m Physical Exam Vitals reviewed. [...] 100 MG ORAL CAP - URINE CULTURE Leonela Sandoval PA-C [facility] Diagnosis Acute cystitis with hematuria- Primary Acute cystitis documented in this encounter [facility] noteNo assessment information availableWKettering Health [facility] Work Phone: [facility]* Diagnosis Encounter for gynecological examination (general) (routine) without abnormal findings- Primary Vaginal discharge Leukorrhea, not specified as infective documented in this encounter [facility] note* Diagnosis Viral URI with cough- Primary Acute upper respiratory infections of unspecified site Other acute nonsuppurative otitis media of left ear, recurrence not specified Sinobronchitis Unspecified sinusitis (chronic) documented in this encounter [facility] note* Diagnosis Encounter for gynecological examination (general) [...] Female stress incontinence documented in this encounter [facility] note* Diagnosis Encounter for routine checking of intrauterine contraceptive device (IUD)- Primary Pelvic cramping Unspecified symptom associated with female genital organs documented in this encounter [facility] note* Diagnosis Encounter for routine checking of intrauterine contraceptive device (IUD) Pelvic cramping Unspecified symptom associated with female genital organs documented in this encounter [facility] note* Diagnosis Abnormal uterine bleeding (AUB)- Primary History of abnormal uterine bleeding documented in this encounter [facility] note* Diagnosis Onset Date Resolution Status Asthma acute Nicotine dependence, cigarettes, in remission acute [facility] Work Phone: Evaluation note* Diagnosis Sinobronchitis- Primary Unspecified sinusitis (chronic) History of emphysema (HCC) Personal history of other diseases of respiratory system Wheezing documented in this encounter [facility] note* Diagnosis Acute left-sided low back pain without sciatica- Primary Acute cystitis without hematuria Acute cystitis documented in this encounter [facility] note* Diagnosis Onset Date Resolution Status Admit Date Asthma chronic December 13 8:50am Nicotine dependence, cigarettes, in remission chronic December 13, 2024 8:50am [facility] Work Phone: Hospital Discharge instructions Additional Instructions The exact cause of the sensation in her chest is not clear however at this time there does not appear to be any acute cardiac process going on. I feel that you are safe to follow-up outpatient with your primary care doctor. Please return to the ER if you have progression or worsening of your symptoms.[facility] Work Phone: Reason for referral (narrative)* Outpatient Procedure (Routine) - Closed Specialty Diagnoses / Procedures Referred By Priyank arriola Referred To Contact [facility] Diagnoses Encounter for gynecological examination (general) (routine) without abnormal findings Excessive bleeding in premenopausal period Procedures ENDOMETRIAL BIOPSY ENDOMETRIAL BX W/WO ENDOCERVIX BX W/O DILAT SPX Catherine Carr APRN.CNP [address] [place] [address] [facility] [address] [place] [address] Referral ID Status Reason Start Date Expiration Date V isits Requested Visits Authorized [id number] Closed Auto-Generate d Referral 07/19/2023 10/17/2023 1 1 [facility] for referral (narrative)* Diagnostic Procedure Only (Routine) - Closed Specialty Diagnoses / Procedures Referred By Priyank arriola Referred To Contact [facility] Diagnoses Encounter for routine checking of intrauterine contraceptive device (IUD) Pelvic cramping Procedures US FEMALE PELVIS TRANSVAG US TRANSVAGINAL Catherine Carr APRN.CNP [address] 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 Advance Directive(s) 02/02/2021 11:12 AM Advance Directive(s) 11/24/2015 12:34 PM Advance Directive Response Recorded Date/ Time Living Will No December 08, 2022 8:08am Power of Leaf Tier No December 08 8:08am Advance Directive Response Recorded Date/ Time Living Will No June 08 1:47pm Power of Leaf Tier No June 08, 2023 1:47pm Advance Directive Response Recorded Date/ Time Living Will No June 08 2:47pm Power of Leaf Tier No June 08, 2023 2:47pm Chief Complaint and Reason for Visit Chief Complaint SCREENING Chief Complaint chest pain Chief Complaint Asthma Chief Complaint Asthma SCREENING Chief Complaint Asthma SCREENING Asthma E-ORDER HX NICOTINE DEPENDENCE, ASTHMA Reason for Visit Asthma Nicotine dependence, cigarettes, in remission Chief Complaint Asthma SCREENING Asthma E-ORDER HX NICOTINE DEPENDENCE, ASTHMA HX NICOTINE DEPENDENCE, ASTHMA HX NICOTINE DEPENDENCE, ASTHMA Reason for Visit Asthma Nicotine dependence, cigarettes, in remission Chief Complaint Asthma SCREENING Asthma E-ORDER HX NICOTINE DEPENDENCE, ASTHMA HX NICOTINE DEPENDENCE, ASTHMA HX NICOTINE DEPENDENCE, ASTHMA NICOTINE DEP Reason for Visit Asthma Nicotine dependence, cigarettes, in remission Chief Complaint Admit Date smoker quit 06/2023November 06, 2024 10:3 9am Chief Complaint Admit Date smoker quit 06/2023November 06, 2024 10:3 9am 6 M FU December 13, 2024 8:5 0am Reason for Visit Admit Date Asthma December 13, 2024 8:5 0am Nicotine dependence, cigarettes, in peter ssion December 13, 2024 8:50am Chief Complaint Admit Date smoker quit 06/2023November 06, 2024 10:3 9am 6 M FU December 13, 2024 8:5 0am RULE OUT PNEUMONIA January 03, 2025 1: 31pm Family History No Family History Records Found Relationship Condition Age at Onset Recorded Date/T rj father Malignant neoplasm of colon Unknown sister Malignant neoplasm of colon Unknown Summary Purpose Additional Source Comments Source Comments (unrecognize d section and content) In the event this informatio n is protected by the Federal Confidentiality of Alcohol and Drug Abuse Patient Records regulations: The Federal rules restrict any use of the information to criminally investigate or prosecute any alcohol or drug abuse patient.[facility] CenterIn the event this information is protected by the Federal Confidentiality of Alcohol and Drug Abuse Patient Records regulations: The Federal rules restrict any use of the information to criminally investigate or prosecute any alcohol or drug abuse patient.[facility] CenterIn the event this information is protected by the Federal Confidentiality of Alcohol and Drug Abuse Patient Records regulations: The Federal rules restrict any use of the information to criminally investigate or prosecute any alcohol or drug abuse patient.[facility] CenterIn the event this information is protected by the Federal Confidentiality of Alcohol and Drug Abuse Patient Records regulations: The Federal rules restrict any use of the information to criminally investigate or prosecute any alcohol or drug abuse patient.[facility] CenterIn the event this information is protected by the Federal Confidentiality of Alcohol and Drug Abuse Patient Records regulations: The Federal rules restrict any use of the information to criminally investigate or prosecute any alcohol or drug abuse patient.[facility] CenterIn the event this information is protected by the Federal Confidentiality of Alcohol and Drug Abuse Patient Records regulations: The Federal rules restrict any use of the information to criminally investigate or prosecute any alcohol or drug abuse patient.[facility] CenterIn the event this information is protected by the Federal Confidentiality of Alcohol and Drug Abuse Patient Records regulations: The Federal rules restrict any use of the information to criminally investigate or prosecute any alcohol or drug abuse patient.[facility] CenterIn the event this information is protected by the Federal Confidentiality of Alcohol and Drug Abuse Patient Records regulations: The Federal rules restrict any use of the information to criminally investigate or prosecute any alcohol or drug abuse patient.[facility] CenterIn the event this information is protected by the Federal Confidentiality of Alcohol and Drug Abuse Patient Records regulations: The Federal rules restrict any use of the information to criminally investigate or prosecute any alcohol or drug abuse patient.[facility] CenterIn the event this information is protected by the Federal Confidentiality of Alcohol and Drug Abuse Patient Records regulations: The Federal rules restrict any use of the information to criminally investigate or prosecute any alcohol or drug abuse patient.[facility] CenterIn the event this information is protected by the Federal Confidentiality of Alcohol and Drug Abuse Patient Records regulations: The Federal rules restrict any use of the information to criminally investigate or prosecute any alcohol or drug abuse patient.[facility] CenterIn the event this information is protected by the Federal Confidentiality of Alcohol and Drug Abuse Patient Records regulations: The Federal rules restrict any use of the information to criminally investigate or prosecute any alcohol or drug abuse patient.[facility] Center[facility] the event this information is protected by the Federal Confidentiality of Alcohol and Drug Abuse Patient Records regulations: The Federal rules restrict any use of the information to criminally investigate or prosecute any alcohol or drug abuse patient.[facility] Reason for Visit (unrecogniz ed section and content) Reason Comments Urinary Urgency urgency Pain lower back pain rate d 2, onset today Reason Comments Results Reason Comments Yearly Exam Specialty Diagnoses / Procedures Referred By Contac t Referred To Contact Gynecology / RACQUET MAKER Diagnoses Annual Procedures WELLNESS EXAMS EST 40-64 YRS EST WHI ANNUAL PATIENT Self Liza Amin APRN.VIDEO JOURNALIST [address] [place] [address] Referral ID Status Reason Start Date Expiration Date Visits Re quested Visits Authorized [id number] Closed 03/28/2022 05/14/2022 1 1 Reason Comments Cough Sore throat and coug henry up thick yellow mucus x3 days. Reason Comments Well Woman Specialty Diagnoses / Procedures Referred By Contac t Referred To Contact Assembler [employer] / RACQUET MAKER Diagnoses Encounter for gynecological examination (general) (routine) without abnormal findings annual Procedures OFFICE/OUTPATIENT EST PT MAY NOT REQ PHYS/QHP OFFICE/OUTPATIENT ESTABLISHED HIGH MDM 40 MIN EST WHI ANNUAL PATIENT Self Catherine Carr APRN.VIDEO JOURNALIST [address] [place] [address] Referral ID Status Reason Start Date Expiration Date V isits Requested Visits Authorized [id number] Authorized 07/19/2023 05/14/2024 99 99 Reason Comments Results Reason Comments Radiology US Specialty Diagnoses / Procedures Referred By Contac t Referred To Contact US IMAGING Diagnoses Encounter for routine checking of intrauterine contraceptive device (IUD) Pelvic cramping Procedures US FEMALE PELVIS TRANSVAG US TRANSVAGINAL Edwinrashawn CatherineKIM lópez.VIDEO JOURNALIST [address] [place] [address] [place] [address] Referral ID Status Reason Start Date Expiration Date V isits Requested Visits Authorized [id number] Closed Auto-Generate d Referral 07/20/2023 08/18/2024 1 1 Reason Comments Endometrial Biopsy Specialty Diagnoses / Procedures Referred By Priyank arriola Referred To Contact Assembler [employer] / RACQUET MAKER Diagnoses Encounter for gynecological examination (general) (routine) without abnormal findings EMB Procedures OFFICE/OUTPATIENT ESTABLISHED HIGH MDM 40 MIN OFFICE/OUTPATIENT EST PT MAY NOT REQ PHYS/QHP EST WHI PATIENT Self Catherine Carr APRN.VIDEO JOURNALIST [address] [place] [address] Referral ID Status Reason Start Date Expiration Date V isits Requested Visits Authorized [id number] Authorized 07/21/2023 05/14/2024 99 99 Reason Comments Cough Chest congestion, he adache, chills, exp wheeze, left side back pain, x 4 days Reason Comments Low Back Pain left side, nausea x 3 days, took azo Specialty Diagnoses / Procedures Referred By Priyank arriola Referred To Contact Internal Medicine / [facility] Diagnoses UTI symptoms, fever left side lower back pain, nausea X 3 days Procedures EST SAME DAY [facility] [address] [place] [address] Phone: tel: [facility] [address] [place] [address] Phone: tel: Referral ID Status Reason Start Date Expiration Date Visits Requested Visits Authorized [id number] New Request Financial Clearance Required - Self Pay 07/21/2024 10/19/2024 1 1 Care Teams (unrecognized sec tion and content) Quality Control Lab Tech Relationship Specialty Start Date End Date Home Carter MD PCP - General Family Practice 10/28/15 Quality Control Lab Tech Relationship Specialty Start Date End Date Home Carter MD PCP - General Family Practice 10/28/15 Quality Control Lab Tech Relationship Specialty Start Date End Date Home Carter MD PCP - General Family Medicine 10/28/15 Team Status: Active Member Role Status Dates Dr. Home Carter MD Family Provider Active Dr. Taryn Kim MD Primary Care Provider Active Team Status: Inactive Member Role Status Dates Dr. Taryn Kim MD Primary Care Prov ider, Attending Provider, Referring Provider Active Team Status: Inactive Member Role Status Dates Dr. Taryn Kim MD Primary Care Provider Active Dr. Angelica Trivedi DO Emergency Provider Active Quality Control Lab Tech Relationship Specialty Start Date End Date Taryn Kim MD [address] [place], [place] [id number] PCP - General Family Medicine 04/07/23 Team Status: Inactive Member Role Status Dates Dr. Taryn Kim MD Primary Care Provider Active Dr. Francisca Yanez MD Emergency Provider Active Quality Control Lab Tech Relationship Specialty Start Date End Date Taryn Kim MD [address] [place] [address] PCP - General Family Medicine 04/07/23 Quality Control Lab Tech Relationship Specialty Start Date End Date Taryn Kim MD [address] [place] [address] PCP - General Family Medicine 04/07/23 Quality Control Lab Tech Relationship Specialty Start Date End Date Taryn Kim MD [address] [place] [address] PCP - General Family Medicine 04/07/23 Quality Control Lab Tech Relationship Specialty Start Date End Date Taryn Kim MD [address] [place], [place] [id number] PCP - General Family Medicine 04/07/23 Team Status: Inactive Member Role Status Dates Dr. Taryn Kim MD Primary Care Provider Active Dr. Francisca Yanez MD Attending Provider, Emergency Provider Active Team Status: Inactive Member Role Status Dates Dr. Taryn Kim MD Primary Care Provider Active Catherine Carr , TAXI SERVICER-C Attending Provider, Referring Provi jack Active Team Status: Inactive Member Role Status Dates Dr. Taryn Kim MD Primary Care Provider, Referrin g Provider Active Dr. Ky Asencio DO Attending Provider Active Team Status: Active Member Role Status Dates Dr. Taryn Kim MD Primary Care Provider Active Dr. Ky Asencio DO Attending Provider, Referring Pro vider Active Team Status: Inactive Member Role Status Dates Dr. Taryn Kim MD Primary Care Provider Active Dr. Ky Asencio DO Attending Provider, Referring Pro vider Active Team Status: Active Member Role Status Dates Dr. Taryn Kim MD Primary Care Provider Active Dr. Ky Asencio DO Attending Provider, Referring Provider, Other Provider Active Team Status: Active Member Role Status Dates Dr. Taryn Kim MD Primary Care Provider Active Dr. Ky Asencio DO Attending Provider Active Team Status: Inactive Member Role Status Dates Dr. Taryn Kim MD Primary Care Provider Active Dr. Ky Asencio DO Attending Provider Active Quality Control Lab Tech Relationship Specialty Start Date End Date Taryn Kim MD [address] [place] [address] PCP - General Family Medicine 04/07/23 Quality Control Lab Tech Relationship Specialty Start Date End Date Taryn Kim MD [address] [place], [place] [id number] PCP - General Family Medicine 04/07/23 Quality Control Lab Tech Relationship Specialty Start Date End Date Taryn Kim MD [address] [facility] [place] [address] PCP - General Family Medicine 04/07/23 Team Status: Active Member Role/Relationship Status Dates Dr. Taryn Kim MD Primary Care Provider Active Team Status: Inactive Member Role/Relationship Status Dates Dr. Taryn Kim MD Primary Care Provider Active Start: November 06, 2024 End: November 06, 2024 Albania Glover TAXI SERVICER, TAXI SERVICER-C Attending Provider Active Start: November 06, 2024 End: November 06, 2024 [place]ia Glover TAXI SERVICER, TAXI SERVICER-C Referring Provider Active Start: November 06, 2024 End: November 06, 2024 Team Status: Inactive Member Role/Relationship Status Dates Dr. Taryn Kim MD Primary Care Provider Active Start: December 13, 2024 End: December 13, 2024 Dr. Taryn Kim MD Referring Provider Active Start: December 13, 2024 End: December 13, 2024 Sil Selby NP-C Attending Provider Active Start: December 13, 2024 End: December 13, 2024 Team Status: Inactive Member Role/Relationship Status Dates Dr. Taryn Kim MD Primary Care Provider Active Start: January 03, 2025 End: January 03, 2025 AMPARO Corcoran Attending Provider Active St art: January 03, 2025 End: January 03, 2025 AMPARO Corcoran Referring Provider Active St art: January 03, 2025 End: January 03, 2025 Goals (unrecognized section and content) Goals may be documented in a n alternate sectionGoals may be documented in an alternate sectionGoals may be documented in an alternate sectionGoals may be documented in an alternate sectionGoals may be documented in an alternate sectionGoals may be documented in an alternate sectionGoals may be documented in an alternate sectionGoals may be documented in an alternate sectionGoals may be documented in an alternate sectionGoals may be documented in an alternate sectionGoals may be documented in an alternate sectionGoals may be documented in an alternate sectionGoals may be documented in an alternate sectionGoals may be documented in an alternate section INFORMATION SOURCE (unrecogn ized section and content) DATE CREATED AUTHOR 01/11/2025 [facility] DATE CREATED AUTHOR ELLI SWEET FADYWELLINGTON 03/20/2025 [facility] FOR RECORDS PERTAINING TO PATIENTS WHO ARE [...] BE BASED ON THE PRIMARY CLINICAL RECORDS. [employer] provides no warranty or guarantee of the accuracy or completeness of information in this document.
[2025-04-02 12:13] LABS: Hematocrit 42.7 % (37-47); Hemoglobin 14.7 g/dL (12.0-15.0); Immature Granulocytes Count 0.010 X10^3/uL (0.0-0.0); Mean Corp Hgb Conc 34.4 g/dL (32-36); Mean Corpuscular Volume 98.8 fL (81-99); Mean Platelet Vol. 10.0 fl (6.2-12.0); NRBC Flagged by Analyzer 0 % (0-5); Platelet Count 317 K/mm3 (150-450); RBC Distribution Width CV 12.9 % (11.6-14.6); RBC Distribution Width SD 46.7 fl (35.1-43.9); Red Blood Count 4.32 M/mm3 (4.2-5.4); White Blood Count 7.5 K/mm3 (4.4-11.0)
[2025-04-02 12:58] LABS: AST(SGOT) 21 U/L (<=31); Alanine Aminotransfer ALT/SGPT 30 U/L (<=34); Albumin, Serum 4.2 g/dL (3.5-5.0); Alkaline Phosphatase 76 U/L (35-104); Anion Gap 10 (5-15); BUN 12 mg/dL (4-19); BUN/Creat Ratio 19.4 RATIO (10-20); Calcium,Total 9.3 mg/dL (7.6-11.0); Carbon Dioxide 22.8 mmol/L (21.0-32.0); Chloride 102 mmol/L (98-108); Cholesterol 208 mg/dL (<=200); Globulin 2.5 g/dL (2.2-4.2); Glucose 107 mg/dL (70-99); Low Density Lipoprotein Calc. 110 mg/dL; Potassium 3.8 mmol/L (3.3-5.1); Triglycerides 213 mg/dL; Very Low Density Lipoprotein 43 mg/dL (5-40); Vitamin D,25 Hydroxy 31.0 ng/mL (30-100); cholesterol:hdl ratio screen 3.36
== END | disposition home or self-care (01) ==
LOC: BFHLAB 08:51
PROVIDERS: PCP Family Medicine; Visit Provider Nurse Practitioner Family
DX: Z00.01 Encounter for general adult medical examination with abnormal findings (principal); E03.9 Hypothyroidism, unspecified; E55.9 Vitamin D deficiency, unspecified
CPT/HCPCS: 36415; 80053; 80061; 82306; 84439; 84443; 85025